=== PATIENT | female | born 1980 | race African-American/Black ===

== ENCOUNTER 2018-11-19 13:33 | Emergency (ER) | payer MEDICAID, SELFPAY ==
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
== END 2018-11-19 15:25 | disposition home or self-care (01) ==
LOC: ERS 13:33
DX: R07.89 Other chest pain (principal); I10 Essential (primary) hypertension; F41.9 Anxiety disorder, unspecified; F31.9 Bipolar disorder, unspecified; E11.9 Type 2 diabetes mellitus without complications; Z79.4 Long term (current) use of insulin; Z79.899 Other long term (current) drug therapy; V89.2XXA Person injured in unspecified motor-vehicle accident, traffic, initial encounter
CPT/HCPCS: 71045; 96372

== ENCOUNTER 2018-12-16 18:46 | Emergency (ER) | payer MEDICARE, MEDICAID ==
[2018-12-16] MEDS ORDERED: Acetaminophen 500 MG TAB ONE (20:12)
[2018-12-16 20:20] LABS: Bilirubin Small (Negative); Blood, Urine Negative (Negative); Clarity CLOUDY (Clear); Glucose, Urine (Dipstick) >=1000 mg/dL (Negative); Leukocyte Negative (Negative); Nitrite Negative (Negative); Protein, Urine (Dipstick) 30 mg/dL (Neg-Trace)
[2018-12-16 20:21] LABS: Bacteria/HPF 1+ HPF (None Seen); Hyaline Casts/LPF 4-6 HYALINE CAST LPF (0-3 Hyaline); Pathc Cast-AUWi Flag 0.81 (0-2.49); RBC/HPF 0-3 HPF (0-3)
[2018-12-16 20:22] LABS: Pregnancy Test - Urine (BHCG) Negative (Negative); Pregu Control Background? CLEAR/WHITE (CLR/WHITE); Pregu Control Bar Appear? YES (CONTROL BAR); Specific Gravity 1.042 (1.002-1.036); Specific Gravity, Urine 1.042 (1.002-1.036)
[2018-12-16 20:25] LABS: #Basophils 0.1 thou/uL (0.0-0.2); #Lymphocytes 1.9 thou/uL (1.20-3.40); #Monocytes 0.5 thou/uL (0.11-0.59); #Neutrophils 3.7 thou/uL (1.40-6.50); %Basophils 1.4 % (0.0-1.0); %Eosinophils 0.7 % (0.0-10.0); Hemoglobin 12.2 g/dL (12.0-16.0); Mean Corpuscular HGB CONC 33.9 g/dL (32.0-36.0); Mean Corpuscular Hemoglobin 32.1 pg (27.0-31.0); Mean Corpuscular Volume 94.8 fL (78.0-98.0); Mean Platelet Volume 8.8 fL (7.4-10.4); Platelet Count 246 thou/uL (130-400); RBC Distribution Width 11.9 % (11.5-14.5); Red Blood Cell (RBC) Count 3.79 mill/uL (4.20-5.40); White Blood Cell (WBC) Count 6.2 thou/uL (4.8-10.8)
[2018-12-16 20:32] LABS: Transitional Epithelial 0-3 HPF (0-3)
[2018-12-16 20:46] LABS: ALT (SGPT) 11 U/L (8-55); AST (SGOT) 15 U/L (5-34); Albumin 4.3 g/dL (3.5-5.0); Alkaline Phosphatase 66 U/L (40-150); Anion Gap 15 mmol/L (10-20); BUN (Urea Nitrogen) 13 mg/dL (7.0-18.7); Bilirubin, Total 0.7 mg/dL (0.2-1.2); Calc. Creatinine Clearance 0 mL/min (70-130); Calcium 9.1 mg/dL (7.8-10.44); Carbon Dioxide 21 mmol/L (22-29); Chloride 105 mmol/L (98-107); Estimated GFR-MDRD 83; Globulin 2.8 g/dL (2.4-3.5); Glucose 219 mg/dL (70-105); Potassium 3.5 mmol/L (3.5-5.1); Protein, Total 7.1 g/dL (6.0-8.3); Sodium 137 mmol/L (136-145)
== END 2018-12-16 21:29 | disposition home or self-care (01) ==
LOC: ERS 18:46
DX: N93.9 Abnormal uterine and vaginal bleeding, unspecified (principal); E11.65 Type 2 diabetes mellitus with hyperglycemia; I10 Essential (primary) hypertension; F41.9 Anxiety disorder, unspecified; F31.9 Bipolar disorder, unspecified; Z79.1 Long term (current) use of non-steroidal anti-inflammatories (NSAID); Z79.899 Other long term (current) drug therapy; Z79.4 Long term (current) use of insulin
CPT/HCPCS: 36415; 36416; 80053; 81003; 81015; 81025; 82010; 85025

== ENCOUNTER 2019-06-24 12:31 | Emergency (ER) | payer MEDICARE, OTHER ==
[2019-06-24 13:13] LABS: Bacteria/HPF 3+ HPF (None Seen); Bilirubin Negative (Negative); Blood, Urine 2+ (Negative); Clarity Turbid (Clear); Glucose, Urine (Dipstick) Greater than 1000 mg/dL (Negative); Leukocyte 250 Leu/uL (Negative); Nitrite 2+ (Negative); Protein, Urine (Dipstick) 100 mg/dL (Neg-Trace); RBC/HPF 0-3 HPF (0-3); Squamous Epithelial 21-50 HPF (0-3); Urobilinogen Normal mg/dL (Less than 2); WBC/HPF 21-50 HPF (0-3)
[2019-06-24 13:26] LABS: #Eosinphils 0.1 thou/uL (0.0-0.7); #Lymphocytes 1.9 thou/uL (1.20-3.40); #Monocytes 0.4 thou/uL (0.11-0.59); %Basophils 0.4 % (0.0-1.0); %Eosinophils 1.3 % (0.0-10.0); %Lymphocytes 29.6 % (21.0-51.0); %Monocytes 6.5 % (0.0-10.0); %Neutrophils 62.2 % (42.0-75.0); Hemoglobin 11.8 g/dL (12.0-16.0); Mean Corpuscular HGB CONC 34.3 g/dL (32.0-36.0); Mean Corpuscular Volume 93.2 fL (78.0-98.0); Platelet Count 276 thou/uL (130-400); RBC Distribution Width 12.2 % (11.5-14.5); White Blood Cell (WBC) Count 6.5 thou/uL (4.8-10.8)
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
[2019-06-28 00:25] LABS: Chlamydia by PCR Not Detected (NotDetected); GC by PCR Not Detected (NotDetected)
== END 2019-06-24 14:30 | disposition home or self-care (01) ==
LOC: ERS 12:31
DX: O20.0 Threatened abortion (principal); O23.41 Unspecified infection of urinary tract in pregnancy, first trimester; O24.911 Unspecified diabetes mellitus in pregnancy, first trimester; O16.1 Unspecified maternal hypertension, first trimester; O99.341 Other mental disorders complicating pregnancy, first trimester; F41.9 Anxiety disorder, unspecified; F31.9 Bipolar disorder, unspecified; Z3A.10 10 weeks gestation of pregnancy; Z79.4 Long term (current) use of insulin
CPT/HCPCS: 36415; 76856; 81003; 81015; 84702; 85025; 86900; 86901; 87077; 87086; 87186; 87480; 87491; 87510; 87591; 87660

== ENCOUNTER 2019-06-29 08:52 | Emergency (ER) | payer MEDICARE, OTHER ==
--- NOTE | 2019-06-29 10:18 | ULT ---
EXAM: Pelvic ultrasound HISTORY: female with spotting COMPARISON: None TECHNIQUE: Multiple grayscale and color Doppler images were obtained in a transabdominal and transvag inal pelvic ultrasound. Spectral analysis of the Doppler waveforms of the ovaries were performed. FINDINGS: CERVIX: No evidence of nabothian cysts. UTERUS: Normal in size without focal abnormality. No intrauterine is seen. ENDOMETRIAL STRIPE: 5 mm. No free fluid is seen in the pelvis. RIGHT OVARY: Normal flow without focal mass. LEFT OVARY: Normal flow without focal mass. A dominant follicle seen in the left ovary. IMPRESSION: No evidence of intrauterine or ectopic .
== END 2019-06-29 12:56 | disposition home or self-care (01) ==
LOC: ERS 08:52
DX: O20.0 Threatened abortion (principal); O24.311 Unspecified pre-existing diabetes mellitus in pregnancy, first trimester; E11.9 Type 2 diabetes mellitus without complications; O10.911 Unspecified pre-existing hypertension complicating pregnancy, first trimester; O99.341 Other mental disorders complicating pregnancy, first trimester; F41.9 Anxiety disorder, unspecified; F31.9 Bipolar disorder, unspecified; Z79.4 Long term (current) use of insulin; Z79.899 Other long term (current) drug therapy; Z3A.01 Less than 8 weeks gestation of pregnancy
CPT/HCPCS: 36415; 76856; 84702

== ENCOUNTER 2019-07-01 11:46 | Emergency (ER) | payer MEDICARE, OTHER | END 2019-07-01 13:25 | disposition home or self-care (01) | LOC: ERS 11:46 | DX: O20.0 Threatened abortion (principal); O24.911 Unspecified diabetes mellitus in pregnancy, first trimester; O16.1 Unspecified maternal hypertension, first trimester; Z79.4 Long term (current) use of insulin; Z79.899 Other long term (current) drug therapy | CPT/HCPCS: 36415; 84702; 99284 ==

== ENCOUNTER 2019-07-03 08:55 | Emergency (ER) | payer MEDICARE, OTHER | END 2019-07-03 10:15 | disposition home or self-care (01) | LOC: ERS 08:55 | DX: O20.9 Hemorrhage in early pregnancy, unspecified (principal); O24.111 Pre-existing type 2 diabetes mellitus, in pregnancy, first trimester; O10.911 Unspecified pre-existing hypertension complicating pregnancy, first trimester; O99.341 Other mental disorders complicating pregnancy, first trimester; F41.9 Anxiety disorder, unspecified; F31.9 Bipolar disorder, unspecified; Z3A.01 Less than 8 weeks gestation of pregnancy; Z79.4 Long term (current) use of insulin; Z79.899 Other long term (current) drug therapy | CPT/HCPCS: 99283 ==

== ENCOUNTER 2019-07-09 11:58 | Emergency (ER) | payer MEDICARE, MEDICAID | END 2019-07-09 14:53 | disposition home or self-care (01) | LOC: ERS 11:58 | DX: Z48.89 Encounter for other specified surgical aftercare (principal); E11.9 Type 2 diabetes mellitus without complications; I10 Essential (primary) hypertension; F41.9 Anxiety disorder, unspecified; F31.9 Bipolar disorder, unspecified; Z79.4 Long term (current) use of insulin; Z79.899 Other long term (current) drug therapy | CPT/HCPCS: 36415; 84702; 99282 ==

== ENCOUNTER 2019-11-27 21:02 | Emergency (ER) | payer MEDICARE ==
[2019-11-27 21:49] LABS: Pregnancy Test - Urine (BHCG) Negative (Negative); Pregu Control Background? CLEAR/WHITE (CLR/WHITE); Pregu Control Bar Appear? YES (CONTROL BAR); Specific Gravity 1.032 (1.002-1.036)
[2019-11-27] MEDS ORDERED: Adacel (T-DAP) 0.5 ML SYRINGE ONE (22:21)
[2019-11-27] MEDS ORDERED: Acetaminophen 500 MG TAB ONE (22:22)
[2019-11-27] MEDS ORDERED: Lidocaine 1% w/Epinephrine 1:100K 20 ML VIAL ONE (22:56)
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
[2019-11-28] MEDS ORDERED: Bacitracin 1 PK ONE (00:41)
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
== END 2019-11-28 01:00 | disposition home or self-care (01) ==
LOC: ERS 21:02
DX: S01.81XA Laceration without foreign body of other part of head, initial encounter (principal); S00.81XA Abrasion of other part of head, initial encounter; E11.9 Type 2 diabetes mellitus without complications; I10 Essential (primary) hypertension; F31.9 Bipolar disorder, unspecified; F41.9 Anxiety disorder, unspecified; Z79.899 Other long term (current) drug therapy; Z79.4 Long term (current) use of insulin; V86.56XA Driver of dirt bike or motor/cross bike injured in nontraffic accident, initial encounter
CPT/HCPCS: 12011; 70450; 70486; 72125; 81025; 90715

== ENCOUNTER 2019-11-30 21:42 | Inpatient (IN) | payer MEDICARE, MEDICAID ==
[~2019-11-30 21:42] MED LIST: Iopamidol-370 76% 500 ML 1 ML ONE
--- NOTE | 2019-11-30 22:03 | CT ---
CT Brain WO Con: 11/30/2019 12:00 AM CLINICAL HISTORY: Level 1 stroke with slurred speech and right-sided weakness. IMAGING TECHNIQUE: Multiple CT images were obtained of the brain without IV contrast. COMPARISON: CT the brain without contrast dated 11/27/2019 FINDINGS: BRAIN: Evidence of infarct: The well-defined linear hypodensity involving the left frontal lobe is stable. No acute infarct is evident. Evidence of cranial hemorrhage: None. Evidence of midline shift: Third ventricle and septum pellucidum are midline. Ventricles: Normal. No hydrocephalus. SKULL: Intact. VISUALIZED PARANASAL SINUSES: Clear. MASTOID AIR CELLS: Clear. EXTRACRANIAL SOFT TISSUES: Right frontal scalp laceration is similar appearing. IMPRESSION: Stable well-defined linear hypodense lesion involving the left frontal lobe. No additional acute leia nge is demonstrated. Recommendations remain the same as per the prior exam. Findings were called to Dr. Haji at 9:59 PM on 11/30/2019.
[2019-11-30 22:07] LABS: #Eosinphils 0.1 thou/uL (0.0-0.7); #Lymphocytes 2.2 thou/uL (1.20-3.40); #Monocytes 0.5 thou/uL (0.11-0.59); #Neutrophils 2.3 thou/uL (1.40-6.50); %Basophils 0.9 % (0.0-1.0); %Eosinophils 1.5 % (0.0-10.0); %Lymphocytes 43.7 % (21.0-51.0); %Monocytes 9.4 % (0.0-10.0); %Neutrophils 44.4 % (42.0-75.0); Hemoglobin 11.6 g/dL (12.0-16.0); Mean Corpuscular HGB CONC 34.1 g/dL (32.0-36.0); Mean Corpuscular Hemoglobin 32.1 pg (27.0-31.0); Mean Corpuscular Volume 94.1 fL (78.0-98.0); Mean Platelet Volume 9.5 fL (7.4-10.4); Platelet Count 222 thou/uL (130-400); RBC Distribution Width 11.5 % (11.5-14.5); White Blood Cell (WBC) Count 5.1 thou/uL (4.8-10.8)
[2019-11-30 22:12] LABS: Prothrombin Time 12.8 sec (12.0-14.7)
[2019-11-30 22:13] LABS: PTT 27.5 sec (22.9-36.1)
--- NOTE | 2019-11-30 22:28 | CT ---
CTA of the head with IV contrast and 3-D reformatted imaging. CTA of the neck with IV contrast and 3-D reformatted imaging. INDICATION: Stroke COMPARISON: CT the brain without contrast dated 11/30/2019 and 11/27/2019 FINDINGS: CTA OF THE HEAD WITH CONTRAST: CTA OF THE BRAIN: Right ICA: Diffusely small but patent. Right MCA: Patent. Right FREDIS: Patent. ACOM: Patent. Left ICA: Diffusely small but patent Left MCA: There is abrupt cut off of the distal left MCA at the level of the M3 branching. There is some reconstitution of flow within distal branching of the left MCA distribution likely through cortical collaterals. This is most evident on axial image 175 of series 2. Left FREDIS: Patent. PCOMs: There is patency of both posterior communicating arteries. Vertebral arteries: Both appear slightly small but patent. Basilar Artery: Small but patent clinic lpn: Patent. Incidentals: The hypodense lesion involving the anterolateral left frontal cortex demonstrates no de finite enhancement. CTA OF THE NECK WITH CONTRAST: Right CCA: Patent. Right ICA: Patent. Right Subclavian: Patent. Right Vertebral Artery: Patent. Left CCA: Patent. Left ICA: Patent. Left Subclavian: Patent. Left Vertebral Artery: Patent. Aerodigestive tract: Clear. Parotids/Submandibular/Thyroid glands: Normal. Lymph nodes: No pathologically enlarged lymph nodes. Lung Apices: Clear. Bones: No acute osseous abnormality. Incidentals: None. IMPRESSION: 1. Occlusion of the distal left MCA at the level of the M3 branching. 2. Linear hypodense lesion involving the left anterolateral cortex of the left frontal lobe. This is nonspecific and may reflect sequela of remote infarct; however, small developmental cleft is not entirely excluded. Follow-up MRI of brain with and without contrast is recommended for further charac terization. 3. Findings discussed with Dr. Haji at 10:20 PM on 11/30/2019.
[2019-11-30 22:29] LABS: ALT (SGPT) 9 U/L (8-55); AST (SGOT) 13 U/L (5-34); Albumin 3.2 g/dL (3.5-5.0); Alkaline Phosphatase 56 U/L (40-110); Anion Gap 13 mmol/L (10-20); BUN (Urea Nitrogen) 14 mg/dL (7.0-18.7); Bilirubin, Total 0.2 mg/dL (0.2-1.2); CK (CPK) 104 U/L (29-168); Calc. Creatinine Clearance 0 mL/min (70-130); Calcium 8.4 mg/dL (7.8-10.44); Carbon Dioxide 21 mmol/L (22-29); Chloride 98 mmol/L (98-107); Estimated GFR-MDRD 69; Globulin 2.5 g/dL (2.4-3.5); Glucose 429 mg/dL (70-105); Potassium 3.3 mmol/L (3.5-5.1); Protein, Total 5.7 g/dL (6.0-8.3); Sodium 129 mmol/L (136-145)
[2019-11-30 22:39] LABS: BHCG - Serum Negative (NEGATIVE); Pregs Control Background? CLEAR/WHITE (CLR/WHITE); Pregs Control Bar Appear? YES (CONTROL BAR)
[2019-11-30] MEDS ORDERED: niCARdipine 25 MG in Sodium Chloride 0.9% 250 ML 240 ML IVPB PRN (23:24)
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
[2019-11-30] MEDS ORDERED: Electrolyte Replacement Protoc 1 EACH EACH IVPB SCH (23:37)
[2019-11-30] MEDS ORDERED: CCU ELECTROLYTE REPLACEMENT PROTOCOL FS PRN (23:45)
[2019-11-30] MEDS ORDERED: HUMULIN R 100 UNITS in Sodium Chloride 0.9% 100 ML IVPB SCH (23:45)
[2019-11-30] MEDS ORDERED: Potassium Phosphate 15 MMOL in Sodium Chloride 0.9% 250 ML 250 ML IV PRN (23:45)
[2019-11-30] MEDS ORDERED: Magnesium 2 GM/50 ML 2 GM in Premix Bag 1 BAG IVPB PRN (23:45)
[2019-11-30] MEDS ORDERED: PHOS-NAK 1 PKT PACK PO PRN ×2 (23:45)
[2019-11-30] MEDS ORDERED: Potassium Chloride 40 MEQ in Premix Bag 1 BAG IVPB PRN (23:45)
[2019-11-30] MEDS ORDERED: Magnesium Oxide 400 MG TAB PO PRN ×2 (23:45)
[2019-11-30] MEDS ORDERED: Potassium Chloride 20 MEQ TAB PO PRN (23:45)
[2019-11-30] MEDS ORDERED: Potassium Phosphate 12 MMOL in Sodium Chloride 0.9% 250 ML 250 ML IV PRN (23:45)
[2019-11-30] MEDS ORDERED: Potassium Phosphate 9 MMOL in Sodium Chloride 0.9% 100 ML IVPB PRN (23:45)
[2019-12-01] MEDS: Sodium Chloride 0.9% 1,000 ML IV SCH ×2 (02:49→16:58)
[2019-12-01 04:37] LABS: Bacteria/HPF None Seen HPF (None Seen); Bilirubin Negative (Negative); Blood, Urine Negative (Negative); Clarity Clear (Clear); Glucose, Urine (Dipstick) Greater than 1000 mg/dL (Negative); Leukocyte Negative Leu/uL (Negative); Nitrite Negative (Negative); Protein, Urine (Dipstick) 10 mg/dL (Neg-Trace); RBC/HPF 0-3 HPF (0-3); Squamous Epithelial 0-3 HPF (0-3); Urobilinogen Normal mg/dL (Less than 2); WBC/HPF 0-3 HPF (0-3)
[2019-12-01 04:42] LABS: Urine Culture Reflex No No
[2019-12-01 04:48] LABS: Medtox Control Line Valid? VALID (VALID); Medtox Reader # READER 4; Opiate Screen Detected (NotDetected)
[2019-12-01 04:49] LABS: Amphetamine Not Detected (NotDetected); Barbiturates Screen Not Detected (NotDetected); Benzodiazepine Screen Not Detected (NotDetected); Cocaine Metabolite Screen Not Detected (NotDetected); Methadone Not Detected (NotDetected); Methamphetamine Not Detected (NotDetected); Oxycodone Screen Not Detected (NotDetected); Phencyclidine (PCP) Not Detected (NotDetected); THC/Cannabinoid Screen Not Detected (NotDetected); Tricyclic Screen Not Detected (NotDetected)
[2019-12-01 05:47] LABS: Hemoglobin A1c Greater than 14.0 % (4.0-6.0)
[2019-12-01] MEDS: Potassium Chloride 40 MEQ in Sodium Chloride 0.9% 250 ML 250 ML IVPB PRN (05:58)
--- NOTE | 2019-12-01 06:55 | PDOC.FM ---
- Subjective Subjective: NAEO. Patient able to respond to command, right side of body paralyzed. Non verbal. - Objective MAR Reviewed: Yes Vital Signs & Weight: Vital Signs (12 hours) Temp Pulse Ox 12/01/19 04:00 98.5 F 12/01/19 01:22 100 12/01/19 00:29 99 12/01/19 00:01 98.7 F Weight Weight 74.1 kg Most Recent Monitor Data Heart Rate from ECG 100 NIBP 105/67 NIBP BP-Mean 79 Respiration from ECG 13 SpO2 100 I&O: 11/29/19 11/30/19 12/01/19 06:59 06:59 06:59 Output Total 80 Balance -80 Result Diagrams: 11/30/19 21:56 11/30/19 21:56 Phys Exam - Physical Examination Constitutional: NAD HEENT: sclera anicteric Respiratory: no wheezing, clear to auscultation bilateral 2/6 systolic murmur Gastrointestinal: soft, non-tender Musculoskeletal: no edema right upper and lower extremities 0/5, right lower face paralysis Deviation from normal: blunted affect Dx/Plan (1) DM hyperosmolarity type II Code(s): E11.00 - TYPE 2 DIAB W HYPROSM W/O NONKET HYPRGLY-HYPROS COMA ([facility]) Status: Acute (2) Hypertension Code(s): I10 - ESSENTIAL (PRIMARY) HYPERTENSION Status: Acute (3) Left acute arterial ischemic stroke, MCA (middle cerebral artery) Code(s): I63.512 - CEREB INFRC D/T UNSP OCCLS OR STENOS OF LEFT MID CEREB ART Status: Acute (4) Schizophrenia Code(s): F20.9 - SCHIZOPHRENIA, UNSPECIFIED Status: Acute - Plan Plan: 1. Ischemic CVA -CTAngio : left distal MCA occlusion. L & R ICA diffuse small but patent -s/p alteplease @2200 on 11/29, strict bedrest, no lab draws -BPs all within goal of <180/<105, PRNs on board -Will consult neuro & pulm this AM -Continuous neuro checks lila. during 24 hour period -Pending hypercoag panel -Transthoracic echo -Likely ASA vs. DAPT s/p alteplase 2 hr window -Pending f/u CT/MRI 2. Hyperglycemic in IDDM2-uncontrolled -Continue insulin gtt to minimize lab draws -Titrate as needed -Will resume home insulin after 24 hours s/p alteplase -Will need to do intensive diabetes education, this could have been reason why patient had stroke, very uncontrolled in OP setting 3. Bipolar/Schizophrenia -Stable -F/u outpatient Code: Full PCP: Jaret Dispo: >2 midnights Addendum - Attending - Attending Attestation Date/Time: 12/01/19 1202 I personally evaluated the patient and discussed the management with Dr. Zambrano. I agree with the History, Examination, Assessment and Plan documented above with any addition or exceptions noted below. continue s/p TPA protocol. hypercoag panel once lab draws can resume. tight glycemic control. Awaiting neurology recs. Still aphasic and right hemipalegia with right hemineglect.
[2019-12-01] MEDS: Famotidine/PF 20 mg/2ml Vial SLOW IVP SCH (09:04)
[2019-12-01] MEDS: Acetaminophen 650 MG Suppository PR PRN ×2 (09:05→14:38)
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
[2019-12-01] MEDS: HumaLOG 300 UNITS/3 ML VIAL SC PRN ×3 (12:49→23:06)
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
[2019-12-01] MEDS: Ondansetron PF 4 MG/2 ML Vial IVP PRN ×2 (15:10→20:39)
[2019-12-01] MEDS: Labetalol HCl 100 MG/20 ML VIAL SLOW IVP PRN (17:39)
--- NOTE | 2019-12-01 17:54 | PDOC.BPN ---
- Brief Progress Note Called to CCU and notified that patient has had emesis x2 about 150cc. On my exam patient is more lethargic, having difficulty spontaneously opening eyes to verbal command where as before she was having spontaneous eye movement. Will order STAT CT head w/o con to r/o ICH. Discussed with Dr. Schreiber & Dr. Conte
--- NOTE | 2019-12-01 18:01 | PDOC.BPN ---
- Brief Progress Note Patient's boyfriend called. Gave him update, see prior note. Will update him with results of CT [phone]
--- NOTE | 2019-12-01 19:14 | CT ---
CT BRAIN WITHOUT CONTRAST: History: Altered mental status after CTA. Comparison: CTA brain, 11-30-2019 FINDINGS: Large volume left MCA infarction involving the anterior and middle divisions. No hemorrhage. There is some mild left to right shift approximately 6 mm. There is some effacement of the left lateral ventr icle. There is subcutaneous emphysema along the right frontal scalp. IMPRESSION: Large left MCA territory infarction involving the anterior middle divisions with early left to right midline shift and effacement of the left lateral ventricle. POS: HOME
--- NOTE | 2019-12-01 19:15 | PDOC.BPN ---
- Brief Progress Note Spoke to reading radiologist, new L->R 6mm midline shift, no bleed identified NIH increased from 15-> 18 Patinet still responding to commands but more groggy than before Onset of vomiting at 1510 this afternoon, improved with zofran but still present per nursing staff Pupils equal and reactive Still nods yes or no Called Neurosurgery for recs on management of new midline shift
--- NOTE | 2019-12-01 19:40 | PDOC.BPN ---
- Brief Progress Note spoke to neurosurgery and neurology 1 time dose mannitol ordered, cohn to be placed Neurosurgery will follow, appreciate recs
[2019-12-01] MEDS ORDERED: Mannitol 12.5 GM/50 ML SLOW IVP SCH (19:45)
[2019-12-01] MEDS: Clotrimazole 2% 3 Day Vag Cr 22.2 GM TUBE VAG SCH (22:40)
[2019-12-02] MEDS: Ondansetron PF 4 MG/2 ML Vial IVP PRN ×2 (01:23→08:15)
--- NOTE | 2019-12-02 02:04 | CON ---
DATE OF CONSULTATION: This is Nina Mays PA-C dictating a report for Reji White MD. HISTORY OF PRESENT ILLNESS: The patient is a 39-year-old female with a past medical history of uncontrolled diabetes and hypertension as well as schizophrenia and bipolar disorder, who presented to the emergency department on 11/30/2019 for acute onset right-sided weakness.. A noncontrast CT head was done on arrival to the emergency department and she was found to have a left-sided acute infarct. CT angiogram did show an occlusion of the distal left MCA level of the M3 branch, however, pt was was not a candidate for NS angio intervention due to distal location of the occlusion. Subsequently, she was treated with tPA and has been monitored in the ICU with regular neuro checks. She received additional noncontrast head CT after developing some somnolence earlier today. Her followup CT was notable for some significant edema in the left frontal region with a mild amount of left to right midline shift. Neurosurgery was consulted for further evaluation and management of this patient. Her sodium on arrival was also noted to be low at 129, however, this was corrected to 137 per the Family Medicine notes. PAST MEDICAL HISTORY: Diabetes, hypertension, schizophrenia, bipolar disorder. PAST SURGICAL HISTORY: section, hernia repair, D and C. SOCIAL HISTORY: Per records, the patient denies alcohol, drug, or smoking history. ALLERGIES: SHE IS ALLERGIC TO LATEX. REVIEW OF SYSTEMS: Unobtainable secondary to patient's acute aphasia. PHYSICAL EXAMINATION: VITAL SIGNS: Pulse is 106, heart rate is 147/97. The patient is 99% on room air. CONSTITUTIONAL: The patient resting comfortably in the ICU. She looks and responds appropriately to her name. HEENT: Head, normocephalic and atraumatic. Pupils are equal and reactive, although she does have a slightly left-sided gaze deviation. CARDIAC: Regular rate and rhythm. LUNGS: Symmetric chest expansion. No evidence of dyspnea. MUSCULOSKELETAL: No obvious deformities. Symmetric pulses. She has a dense right-sided hemiparesis. She has 5/5 strength on the left. NEUROLOGIC: She is completely aphasic. She does open her eyes and will follow commands appropriately. She has good strength on the left, but has a dense right-sided hemiparesis. ASSESSMENT AND PLAN: This is a 39-year-old unfortunate female with acute left MCA infarct, treated with tPA. She has had some mental status changes intermittently and has a new CT, which shows significant edema around the left MCA infarct. This is causing some mild left to right midline shift and some surrounding vasogenic edema. At this point on her exam, she appears to be acting appropriately and responding appropriately to my commands. She awakens easily and her pupils are equal and reactive. We will plan to treat her with one dose of mannitol 100 [address] [place] and monitor her I's and O's closely. We will also repeat an a.m. noncontrast CT head. If she has further decline, she may require earlier imaging or further intervention. Discussed this plan with Dr. White and we will follow along with the medical team closely. Job ID: [id number] MTDD
[2019-12-02] MEDS: Sodium Chloride 0.9% 1,000 ML IV SCH ×3 (02:45→20:29)
[2019-12-02] MEDS: Labetalol HCl 100 MG/20 ML VIAL SLOW IVP PRN ×3 (03:02→17:27)
[2019-12-02 04:06] LABS: #Basophils 0.1 thou/uL (0.0-0.2); #Lymphocytes 1.1 thou/uL (1.20-3.40); #Monocytes 0.6 thou/uL (0.11-0.59); %Basophils 0.5 % (0.0-1.0); %Eosinophils 0.2 % (0.0-10.0); %Lymphocytes 10.2 % (21.0-51.0); %Monocytes 5.6 % (0.0-10.0); %Neutrophils 83.6 % (42.0-75.0); Hemoglobin 12.9 g/dL (12.0-16.0); Mean Corpuscular HGB CONC 34.4 g/dL (32.0-36.0); Mean Corpuscular Hemoglobin 32.5 pg (27.0-31.0); Mean Corpuscular Volume 94.5 fL (78.0-98.0); Mean Platelet Volume 9.7 fL (7.4-10.4); Platelet Count 246 thou/uL (130-400); Red Blood Cell (RBC) Count 3.96 mill/uL (4.20-5.40); White Blood Cell (WBC) Count 10.8 thou/uL (4.8-10.8)
[2019-12-02 04:33] LABS: ALT (SGPT) 8 U/L (8-55); AST (SGOT) 13 U/L (5-34); Albumin 3.7 g/dL (3.5-5.0); Alkaline Phosphatase 63 U/L (40-110); Anion Gap 15 mmol/L (10-20); BUN (Urea Nitrogen) 6 mg/dL (7.0-18.7); Bilirubin, Total 0.4 mg/dL (0.2-1.2); Calc. Creatinine Clearance 101 mL/min (70-130); Calcium 8.7 mg/dL (7.8-10.44); Carbon Dioxide 18 mmol/L (22-29); Chloride 107 mmol/L (98-107); Estimated GFR-MDRD 87; Glucose 229 mg/dL (70-105); Potassium 3.3 mmol/L (3.5-5.1); Protein, Total 6.7 g/dL (6.0-8.3); Sodium 137 mmol/L (136-145)
[2019-12-02] MEDS: HumaLOG 300 UNITS/3 ML VIAL SC PRN ×4 (04:54→17:34)
[2019-12-02 06:25] LABS: PTT 27.5 sec (22.9-36.1); Prothrombin Time 13.4 sec (12.0-14.7)
[2019-12-02 06:26] LABS: D-Dimer Test 2.32 *mcg/mL (0.27-0.43)
--- NOTE | 2019-12-02 07:11 | PDOC.FM ---
- Subjective Subjective: Patient had change in mental status yesterday afternoon with emesis x2. Repeat CT showed cerebral edema with midline shift. Neurosurgery consulted & mannitol started. Repeat CT this AM read pending. Patient still non verbal with limited participation in neuro exam. Has required two doses of IV labetalol to maintain goal blood pressures - Objective Vital Signs & Weight: Vital Signs (12 hours) Temp Pulse BP Pulse Ox 12/02/19 04:00 99.1 F 12/02/19 03:02 105 H 182/106 H 12/02/19 00:00 99.6 F 12/01/19 20:00 99.5 F 99 Weight Admit Weight 73.936 kg Weight 70.7 kg Most Recent Monitor Data Heart Rate from ECG 95 NIBP 178/106 NIBP BP-Mean 130 Respiration from ECG 20 SpO2 98 I&O: 12/01/19 12/02/19 12/03/19 06:59 06:59 06:59 Intake Total 1688 Output Total 80 2470 Balance -80 -782 Result Diagrams: 12/02/19 03:19 12/02/19 03:19 Phys Exam - Physical Examination unable to open eyes Neck: no JVD Respiratory: no wheezing no respiratory distress Cardiovascular: no significant murmur tachycardic Gastrointestinal: soft, no distention Musculoskeletal: no edema no voluntary movement in right side. responds to verbal command. no withdra wal from pain on right. unchanged neuro exam from yesterday Dx/Plan (1) DM hyperosmolarity type II Code(s): E11.00 - TYPE 2 DIAB W HYPROSM W/O NONKET HYPRGLY-HYPROS COMA (NKHHC) Status: Acute (2) Hypertension Code(s): I10 - ESSENTIAL (PRIMARY) HYPERTENSION Status: Acute (3) Left acute arterial ischemic stroke, MCA (middle cerebral artery) Code(s): I63.512 - CEREB INFRC D/T UNSP OCCLS OR STENOS OF LEFT MID CEREB ART Status: Acute (4) Schizophrenia Code(s): F20.9 - SCHIZOPHRENIA, UNSPECIFIED Status: Acute - Plan Plan: 1. Ischemic CVA of L MCA with midline shift -CTAngio : left distal MCA occlusion. L & R ICA diffuse small but patent -s/p alteplease @2200 on 11/29, strict bedrest, no lab draws -Neurology & Neurosurgery on board -Pending hypercoag panel WNL -CT 11/30 showing midline shift from cerebral edema. Mannitol x1. Pending repeat CT this AM -NPO with ice chips. Pending no surgical intervention this AM, will place NGT to restart PO meds 2. Hyperglycemic in IDDM2-uncontrolled -Restarting long acting insulin, continue sliding scale -Currently NPO, will titrate up long acting when taking PO -Will need to do intensive diabetes education, this could have been reason why patient had stroke, very uncontrolled in OP setting 3. Bipolar/Schizophrenia -Stable -F/u outpatient Code: Full PCP: Jaret Dispo: >2 midnights Addendum - Attending - Attending Attestation Date/Time: 12/02/19 [id number] I personally evaluated the patient and discussed the management with Dr. Zambrano. I agree with the History, Examination, Assessment and Plan documented above with any addition or exceptions noted below. Patient intubated at time of my examination. Neurosurgery planning for craniotomy today 2/2 increased ICP with midline shift. Patient had decorticate posturing today on exam. Will await further recommendations. Prognosis guarded.
[2019-12-02] MEDS: Potassium Chloride 40 MEQ in Sodium Chloride 0.9% 250 ML 250 ML IVPB PRN (07:57)
--- NOTE | 2019-12-02 08:24 | CT ---
PRELIMINARY REPORT/[facility]/EMERGENCY AFTER HOURS PROCEDURE: EXAM: CT Head Without Intravenous Contrast. CLINICAL HISTORY: F/U STROKE TECHNIQUE: Axial computed tomography images of the head/brain without intravenous contrast. COMPARISON: CT\SR - CT BRAIN WO CON - 12/01/2019 06:03 PM CDT FINDINGS: BRAIN: Again seen is a large volume left MCA territory stroke with areas of heterogeneous density. Linear hyperdensity at the posterior aspect of the infarct which is favored to represent prominent co rtex versus less likely hemorrhage Surrounding mass-effect and compression of the visualized sulci throughout the brain and axco-qb-bzoy t midline shift measuring approximately 7 mm, similar to prior. VENTRICLES: No hydrocephalus. Effacement of the occipital horn of the left lateral ventricle. ORBITS: The orbits are unremarkable. SINUSES AND MASTOIDS: The paranasal sinuses and mastoid air cells are clear. SOFT TISSUES: Soft tissue thickening and gas in the subcutaneous oft tissues overlying the right frontal bone. BONES: No acute skull fracture. IMPRESSION: Large volume left MCA territory infarct with associated mass effect and left to right midline shift w hich is similar in appearance compared to prior. Linear hyperdensity at the posterior aspect of the infarct which is favored to represent prominent co rtex versus less likely hemorrhage. Short term interval followup is recommended. ELECTRONICALLY SIGNED BY: Patti Beltre MD Dec 02, 2019 5:04:49 AM CDT This report is intended for review by the ordering physician only, in accordance of law. If you recei ve this report in error, please call [facility] at [phone]. FINAL REPORT BRAIN CT WITHOUT IV CONTRAST EMERGENCY AFTER HOURS EXAM [id number] HOURS 12/02/2019 COMPARISON: 12/01/2019. FINDINGS/IMPRESSION: Progressive edema and mass effect involving the left middle cerebral artery distribution with more ma ss effect, approximately 0.7 cm of midline shift to the right. No evidence for significant new hemorr kamila. Questionable small linear hyperdensity on the left side in the posterior infarct region, concei vably this could be a very tiny focus of hemorrhage. Continue short-term follow-up. Consider follow-up MRI depending upon concern. This report is in agreement with preliminary report by [facility]. POS: RRE
[2019-12-02] MEDS ORDERED: Midazolam HCl 2 mg/2 ml Vial ONE (08:35)
[2019-12-02] MEDS ORDERED: Morphine 4 MG/ML VIAL ONE (08:39)
[2019-12-02] MEDS ORDERED: Midazolam HCl 2 mg/2 ml Vial SLOW IVP SCH (08:45)
--- NOTE | 2019-12-02 08:58 | PRG ---
DATE OF SERVICE: 12/02/2019 SUBJECTIVE: This morning, she is a 39-year-old female, is less responsive. OBJECTIVE: VITAL SIGNS: Saturations are 97% on room air, blood pressure 178/ 101, respiratory rate 18. HEENT: Pupils are equal. CHEST: Anterior rhonchi. CARDIAC: Normal S1, S2. No gallops. ABDOMEN: No masses. LABORATORY DATA: White count 10,000, H and H of 10 and 37, platelet count 246. Lytes are normal. Glucose 236. CT of brain shows significant edema with right sided shift secondary to a large left MCA infarct. ASSESSMENT: 1. Diabetes. 2. Schizophrenia. 3. Bipolar. 4. Hypertension. PLAN: She needs to be intubated to protect her airways. We will see whether Neurosurgeryis recommending , more mannitol, Long-term prognosis is grave. I discussed the findings with the mother, who is in the hospital here today. she is full code TIME SPENT: One-half hour of critical time. Job ID: [id number] MTDD
[2019-12-02] MEDS ORDERED: Insulin Glargine 5 UNITS in Pre-Filled Syringe 1 EACH SC SCH (09:00)
[2019-12-02 09:06] LABS: Protein C Activity 116 % (78-152)
[2019-12-02] MEDS: Famotidine/PF 20 mg/2ml Vial SLOW IVP SCH ×2 (09:08→20:39)
--- NOTE | 2019-12-02 09:14 | RAD ---
CHEST 1 VIEW: Date: 12/02/2019 INDICATION: History of intubation. COMPARISON: Prior exam dated 11/19/2018. FINDINGS: ET tube and gastric catheter are present. ET tube tip is seen just below the level of the thoracic in let. Gastric catheter projects beyond the left hemidiaphragm, beyond the field of view. Lungs are maya ar. No pleural effusion or pneumothorax evident. No acute osseous abnormality is evident. IMPRESSION: Interval intubation and gastric catheter placement. No acute cardiopulmonary abnormality. POS: BH
[2019-12-02] MEDS ORDERED: manNITOL 20% 500 ML ONE (10:26)
[2019-12-02] MEDS: Communication Order-Pharmacy FS SCH ×3 (10:38→20:30)
[2019-12-02 10:39] LABS: Actual Bicarbonate (HCO3a) 17.7 mEq/L (22-28); Base Excess (BEa) -4.3 mEq/L (-2.0 to +3.0); Calcium, Ionized (arterial) 1.14 mmol/L (1.12-1.30); Carboxyhemoglobin (COHb) 0.4 gm% (0.0-3.0); Hemoglobin (Hb) 12.3 g/dL (12.0-16.0); O2 Tension (PaO2), arterial 113.7 mmHg (80.0-100.0); Potassium - ABG Lab 3.08 mmol/L (3.70-5.30); pH, Arterial 7.47 (7.35-7.45)
[2019-12-02 10:40] LABS: CO2 Tension 24.8 mmHg (35.0-45.0); Puncture Site RRA
[2019-12-02] MEDS ORDERED: Phenylephrine 10 MG/ML VIAL ONE (10:40)
[2019-12-02] MEDS ORDERED: Fentanyl 250 MCG/5 ML VIAL ONE (10:40)
[2019-12-02 10:41] LABS: Factor VIII Test 353.8 % ACTIVE (56-157)
[2019-12-02 11:00] LABS: HEX PHOS LA Tube 1 38.6 SEC
[2019-12-02 11:01] LABS: HEX PHOS LA Tube 2 36.6 SEC
--- NOTE | 2019-12-02 11:50 | PRG ---
DATE OF SERVICE: 12/02/2019 SUBJECTIVE: She was intubated today using a bite block, a 7.5 endotracheal tube over the bronchoscope. Attempted to intubate her with versed 2mg andmorphine 4mg using a GlideScope resulted in 2 endotracheal tubes being busted. She was still biting the tube. Therefore, oral bite block was placed and 7.5 endotracheal tube placed over the bronchoscope passed via the vocal cords into the trachea. She was bagged, bronchoscope was re-passed again and moderate amount of relatively thick mucus was removed and suctioned. Both lungs were inspected. There was no endobronchial obstruction, blood, or pus. She is connected to respirator. To note, she has been less responsive this morning. OBJECTIVE: VITAL SIGNS: Her blood pressure is 189/109, respiratory rate 18, pulse _110 , sats are 98%. She has been vomiting. CHEST: Rhonchi. CARDIAC: Normal S1, S2. No gallops. ABDOMEN: No masses. LABORATORY DATA: White count 10,000. ASSESSMENT: Massive CVA with cerebral edema, change in mental status, requiring emergency intubation. PLAN: Discussed with Neurosurgery regarding ongoing care, supportive care. This is intubation exclusive of one-half hour critical care time. Job ID: [id number] [facility]
--- NOTE | 2019-12-02 12:41 | PDOC.HOSPP ---
- Subjective Encounter Date: 12/02/19 Subjective: NEUROLOGY PROGRESS NOTE Patient had acute decline in mental status yesterday. Stat HCT showed midline shift with cerebral edema. Continues to be somnolent. HCT repeated yesterday and it was decided to proceed to neurosurgical intervention. - Objective Vital Signs & Weight: Vital Signs (12 hours) Temp Pulse Resp BP 12/02/19 09:50 94 12/02/19 09:13 93 171/100 H 12/02/19 08:48 20 12/02/19 07:00 98.6 F 12/02/19 04:00 99.1 F 12/02/19 03:02 105 H 182/106 H Weight Admit Weight 163 lb Weight 155 lb 13.869 oz Most Recent Monitor Data Heart Rate from ECG 92 NIBP 171/108 NIBP BP-Mean 129 Respiration from ECG 20 SpO2 100 I&O: 12/01/19 12/02/19 12/03/19 06:59 06:59 06:59 Intake Total 1688 Output Total 16 8480 411 Balance -80 -782 -775 Result Diagrams: 12/02/19 03:19 12/02/19 03:19 Additional Labs: Accuchecks 12/02/19 12/02/19 12/01/19 08:24 04:16 23:12 POC Glucose 290 H 238 H 236 H 12/01/19 12/01/19 12/01/19 21:09 16:50 12:28 POC Glucose 209 H 206 H 191 H Radiology Reviewed by me: Yes EKG Reviewed by me: Yes Hospitalist ROS - Review of Systems ROS unobtainable: due to mental status - Medication Medications: Active Medications Generic Name Dose Route Start Last Admin Trade Name Freq PRN Reason Stop Dose Admin Acetaminophen 650 mg 12/01/19 07:30 12/01/19 14:38 Tylenol WV 650 mg Q4H PRN Administration Headache/Fever or Pain Clotrimazole 0 gm 12/01/19 21:00 12/01/19 22:40 Clotrimazole 2% 3 Day Vag Cr VAG 12/03/19 21:01 1 applic HS JESSICA Administration Famotidine 20 mg 12/01/19 09:00 12/02/19 09:08 Pepcid SLOW IVP 20 mg DAILY JESSICA Administration Insulin Human Regular 100 101 mls @ 0 mls/hr 11/30/19 23:45 12/01/19 00:53 units/ Sodium Chloride IVPB 101 mls INF JESSICA Administration Protocol Titrate Potassium Chloride 40 meq/ 270 mls @ 135 mls/hr 11/30/19 23:45 12/02/19 07:57 Sodium Chloride IVPB 270 mls ASDIR PRN Administration FOR SERUM K+ 2.5 - 3.5 Sodium Chloride 1,000 mls @ 100 mls/hr 12/01/19 02:15 12/02/19 10:38 Normal Saline 0.9% IV Not Given .Q10H JESSICA Insulin Glargine 5 units/ 0.05 mls @ 0 mls/hr 12/02/19 09:00 12/02/19 08:15 Miscellaneous Medication SC 0.05 mls QAM JESSICA Administration Insulin Human Lispro 0 units 11/30/19 23:24 12/02/19 09:03 Humalog SC 6 unit .MODERATE SLIDING SC PRN Administration Moderate Correctional Scale Labetalol HCl 10 mg 11/30/19 23:24 12/02/19 03:02 Normodyne SLOW IVP 10 mg Q10MIN PRN Administration SBP > 180 or DBP > 105 Mannitol 500 ml 12/02/19 10:30 12/02/19 10:37 Mannitol 20% IVPB 12/02/19 13:00 Not Given NOW JESSICA Miscellaneous Information 1 each 11/30/19 23:24 12/02/19 10:38 Communication Order-Pharmacy FS 12/05/19 23:25 1 each NOW JESSICA Administration Ondansetron HCl 4 mg 11/30/19 23:24 12/02/19 08:15 Zofran IVP 4 mg Q6H PRN Administration Nausea/Vomiting Sodium Chloride 10 ml 12/01/19 09:00 12/02/19 10:33 Flush - Normal Saline IVF 10 ml Q12HR JESSICA Administration - Exam General Appearance: ill appearing Eye: PERRL ENT: normocephalic atraumatic Neck: supple Heart: RRR Respiratory: CTAB Gastrointestinal: soft, no bruit Extremities: no cyanosis Skin: normal turgor, no lesions, no rashes Neurological: facial droop, hemiplegia, speech deficit Neurological - other findings: right hemiplegia, rt facial droop Musculoskeletal: no muscle wasting Psychiatric: somnolent, lethargic Hosp A/P (1) Left acute arterial ischemic stroke, MCA (middle cerebral artery) Code(s): I63.512 - CEREB INFRC D/T UNSP OCCLS OR STENOS OF LEFT MID CEREB ART Status: Acute (2) DM hyperosmolarity type II Code(s): E11.00 - TYPE 2 DIAB W HYPROSM W/O NONKET HYPRGLY-HYPROS COMA (NKHHC) Status: Acute (3) Hypertension Code(s): I10 - ESSENTIAL (PRIMARY) HYPERTENSION Status: Acute (4) Schizophrenia Code(s): F20.9 - SCHIZOPHRENIA, UNSPECIFIED Status: Acute - Plan plan discussed w/ family, PT/OT, DVT proph w/lovenox 39 year old with acute CVA with worsening mental status . HCT showed cerebral edema with midline shift. Worsening neurological decline . Neurosurgical intervention today. Neurochecks every 2 hours. EEG completed. Will follow up on read. BP control Stroke work up including MRI Brain and 2D echo when stable. Hold off to AC at this time. Telemetry. PT/OT/Speech when stable.
--- NOTE | 2019-12-02 13:11 | CT ---
BRAIN CT WITHOUT IV CONTRAST: Date: 12/02/2019 HISTORY: Follow-up infarct, worsening neurologic status, not following commands. COMPARISON: 12/02/2019 at 0436 hours. FINDINGS: There are extensive edematous changes and mass effect from the left middle cerebral artery distributi on infarct. There is approximately 0.8 cm of midline shift to the right compared to 0.7 cm of midline shift to the right on the prior exam. No evidence for significant new hemorrhage. No significant dil atation of the right lateral ventricle temporal horn. IMPRESSION: Minimally worsening right-sided mass effect from extensive edema and mass effect secondary to large l eft middle cerebral artery distribution infarct. No evidence for overt new hemorrhage. POS: RRE
[2019-12-02] MEDS ORDERED: PHENYLEPHRINE-NS 100 MCG/ML 10 ML SYRINGE ONE (13:14)
[2019-12-02] MEDS ORDERED: Vecuronium 10 MG VIAL ONE (13:14)
[2019-12-02] MEDS ORDERED: Rocuronium Bromide 10 MG/ML (10ML VIAL) ONE (13:14)
--- NOTE | 2019-12-02 13:40 | OP ---
DATE OF PROCEDURE: 12/02/2019 CARBONATING STONE CLEANER: Nina Mays PA-C PROCEDURE PERFORMED: Left decompressive craniectomy. DESCRIPTION OF PROCEDURE: The patient was brought to the operating room and intubated. She was positioned supine and the head turned to left exposing the left frontotemporal region. A curvilinear incision was made and the scalp was reflected anteriorly. A standard large left frontotemporal craniotomy was performed. The dura was then opened and as expected, the brain was quite tight and expressing itself through the durotomy defect. A large durotomy was performed and the dura was resected. Non-suturable DuraGen was then laid over the brain. The scalp was then closed in anatomic layers. Job ID: [id number]
--- NOTE | 2019-12-02 13:46 | PRG ---
DATE OF SERVICE: 12/02/2019 The patient is seen and examined. I agree with Nina Mays's evaluation on 11/30 and 12/01. The patient is a 39-year-old woman, who was found poorly responsive and noted to be right hemiparetic and aphasic. Evaluation revealed a large left MCA pattern infarct. No definitive etiology was identified, but a CT angiogram did show embolus and occlusion of distal M3 branch. This was not felt to be amenable to angiographic intervention and the patient received IV tPA. Since that time, the patient has had progressive mass effect as well as neurologic decline. Last night, she was treated with mannitol 100 g and remain intermittently interactive. This morning, she began to be unable to maintain her airway, had vomitus and was a lot less responsive. Her current physical exam reveals both pupils are reactive, however, the left pupil is somewhat sluggish by comparison. She has some extensor posture in the right arm and withdrawal on the left. CT scan has revealed some increase in mass effect with increased left to right shift. IMPRESSION AND PLAN: The patient has progressive mass effect related to a large infarct. Given her young age, we had decided on decompressive craniectomy for the purpose of life preservation neurologic deficit. I discussed this with the patient's boyfriend. The mother had just been in the room to discuss with other physicians and provided consent, but has a significant tachyarrhythmia, which is currently being managed and she was not available for additional discussion at this time. Job ID: [id number]
[2019-12-02] MEDS ORDERED: Dextrose 5% in Water 1,000 ML IV PRN (15:07)
[2019-12-02] MEDS ORDERED: Dextrose 50% Abboject 50 ML SYRINGE IVP PRN (15:07)
--- NOTE | 2019-12-02 16:24 | EEG ---
Referring Physician: Suyapa SUTHERLAND EEG # [id number] TEST TYPE: ROUTINE PORTABLE VIDEO EEG REPORT: This EEG was performed using 24 channel SentinelOne video digital EEG machine with 24 disc electrodes. This was a routine EEG recording. BACKGROUND: There is a nonsustained posterior background rhythm of 7-8 hertz on the right. No posterior background rhythm on the left. HYPERVENTILATION: Was not performed. PHOTIC STIMULATION: Minimal response seen with photic stimulation. SLEEP: Drowsiness and sleep are observed. EEG DIAGNOSIS: 1.) Intermittent irregular theta activity is seen throughout the recording. 2.) Nonsustained slow posterior background rhythm on the right. Absence of posterior background rhythm on the left. 3.) Low amplitude EEG with delta activity seen on the left. CLINICAL INTERPRETATION: THIS EEG IS CONSISTENT WITH FOCAL CEREBRAL DYSFUNCTION IN THE LEFT CEREBRAL HEMISPHERE. THERE IS ALSO EVIDENCE OF MODERATE GENERALIZED NONSPECIFIC CEREBRAL DYSFUNCTION. NO ICTAL OR INTERICTAL EPILEPTIFORM ABNORMALITIES SEEN DURING THE RECORDING. Cook Italian Style Food: MARYLU Trade Analyst: [email or web address] PRESLEY
[2019-12-02] MEDS: Acetaminophen 650 MG Suppository PR PRN (17:36)
[2019-12-02 17:42] LABS: Cardiolipin IgA Ab 3.5 APL-U/mL (<14 Negative); Cardiolipin IgG Ab Less than 0.5 GPL-U/mL (<10 Negative); Cardiolipin IgM Ab Less than 0.8 MPL-U/mL (<10 Negative); EliA APS New Method **** NEW METHOD ****
--- NOTE | 2019-12-02 19:06 | RAD ---
CHEST ONE VIEW: 11/30/09 HISTORY: Fever and aspiration. COMPARISON: Radiograph same day. FINDINGS: Subtle increased air space opacity within the lingula and left lower lobe. No pneumothorax. Enteric t ube tip below diaphragm and out of field of view. Endotracheal tube above the prasanth, 2.3 cm. IMPRESSION: New lingula and left lower lobe air space opacities can be seen with aspiration pneumonia. POS: HOME
[2019-12-02] MEDS: Morphine 2 MG/ML SYRINGE SLOW IVP PRN (19:17)
[2019-12-02 19:41] LABS: #Lymphocytes 1.2 thou/uL (1.20-3.40); #Monocytes 1.1 thou/uL (0.11-0.59); #Neutrophils 9.6 thou/uL (1.40-6.50); %Basophils 0.3 % (0.0-1.0); %Eosinophils 0.1 % (0.0-10.0); %Lymphocytes 10.1 % (21.0-51.0); %Monocytes 9.1 % (0.0-10.0); %Neutrophils 80.3 % (42.0-75.0); Hemoglobin 10.2 g/dL (12.0-16.0); Mean Corpuscular HGB CONC 34.1 g/dL (32.0-36.0); Mean Corpuscular Hemoglobin 32.3 pg (27.0-31.0); Mean Corpuscular Volume 94.7 fL (78.0-98.0); Mean Platelet Volume 9.3 fL (7.4-10.4); Platelet Count 218 thou/uL (130-400); RBC Distribution Width 12.2 % (11.5-14.5); Red Blood Cell (RBC) Count 3.17 mill/uL (4.20-5.40)
[2019-12-02] MEDS: Clotrimazole 2% 3 Day Vag Cr 22.2 GM TUBE VAG SCH (20:30)
[2019-12-02] MEDS ORDERED: Insulin Glargine 10 UNITS in Pre-Filled Syringe 1 EACH SC SCH (21:00)
[2019-12-03] MEDS: HumaLOG 300 UNITS/3 ML VIAL SC PRN ×4 (00:46→15:55)
[2019-12-03 03:35] LABS: #Lymphocytes 1.3 thou/uL (1.20-3.40); #Monocytes 1.3 thou/uL (0.11-0.59); #Neutrophils 13.4 thou/uL (1.40-6.50); %Basophils 0.1 % (0.0-1.0); %Eosinophils 0.2 % (0.0-10.0); %Monocytes 8.1 % (0.0-10.0); %Neutrophils 83.6 % (42.0-75.0); Hemoglobin 10.7 g/dL (12.0-16.0); Mean Corpuscular HGB CONC 33.1 g/dL (32.0-36.0); Mean Corpuscular Hemoglobin 31.2 pg (27.0-31.0); Mean Corpuscular Volume 94.1 fL (78.0-98.0); Mean Platelet Volume 9.8 fL (7.4-10.4); Platelet Count 226 thou/uL (130-400); RBC Distribution Width 12.1 % (11.5-14.5); Red Blood Cell (RBC) Count 3.43 mill/uL (4.20-5.40); White Blood Cell (WBC) Count 16.1 thou/uL (4.8-10.8)
[2019-12-03] MEDS: Labetalol HCl 100 MG/20 ML VIAL SLOW IVP PRN (03:53)
[2019-12-03] MEDS ORDERED: Lorazepam 2 MG/ML VIAL SLOW IVP PRN (03:54)
[2019-12-03] MEDS: hydrALAZINE 20 MG/ML VIAL SLOW IVP PRN (04:27)
[2019-12-03] MEDS: Sodium Chloride 0.9% 1,000 ML IV SCH ×2 (04:29→14:16)
[2019-12-03 05:15] LABS: Actual Bicarbonate (HCO3a) 17.8 mEq/L (22-28); Base Excess (BEa) -4.7 mEq/L (-2.0 to +3.0); Calcium, Ionized (arterial) 1.12 mmol/L (1.12-1.30); Carboxyhemoglobin (COHb) 0.5 gm% (0.0-3.0); O2 Tension (PaO2), arterial 177.1 mmHg (80.0-100.0); Potassium - ABG Lab 3.16 mmol/L (3.70-5.30); pH, Arterial 7.46 (7.35-7.45)
[2019-12-03 05:27] LABS: ALV-art Gradient 75.975 (0-20); CO2 Tension 25.7 mmHg (35.0-45.0); Puncture Site RRA
[2019-12-03] MEDS ORDERED: Ampicillin/Sulbactam 1.5 GM in Sodium Chloride 0.9% 100 ML IVPB SCH (06:00)
[2019-12-03] MEDS: Potassium Chloride 40 MEQ in Sodium Chloride 0.9% 250 ML 250 ML IVPB PRN (06:33)
[2019-12-03] MEDS ORDERED: Insulin Glargine 15 UNITS in Pre-Filled Syringe 1 EACH SC SCH (07:02)
--- NOTE | 2019-12-03 07:14 | PDOC.FM ---
- Subjective Subjective: Had fever last night of 101F. Given tylenol. CXR showed inc opacification in left lower lobe lung opacities. More repsonsive this AM, responds to verbal command with left extremities Withdraws to pain with nail bed pressure on right extremities No spontaneous eye opening but nurse reported she had last night - Objective MAR Reviewed: Yes Vital Signs & Weight: Vital Signs (12 hours) Temp Pulse Resp BP Pulse Ox 12/03/19 06:00 24 H 12/03/19 04:27 117 H 160/98 H 12/03/19 04:00 99.8 F H 16 12/03/19 03:53 117 H 160/98 H 12/03/19 03:32 117 H 160/98 H 12/03/19 02:00 16 12/03/19 01:28 114 H 12/03/19 00:00 100.0 F H 16 12/02/19 22:00 16 12/02/19 21:49 105 H 153/101 H 12/02/19 20:00 98.9 F 16 100 Weight Admit Weight 73.936 kg Weight 72.6 kg Most Recent Monitor Data Heart Rate from ECG 124 NIBP 139/87 NIBP BP-Mean 104 Respiration from ECG 21 SpO2 100 I&O: 12/02/19 12/03/19 12/04/19 06:59 06:59 06:59 Intake Total 1688 2787.9 Output Total 2470 2657 Balance -782 130.9 Result Diagrams: 12/03/19 03:08 12/03/19 07:10 Phys Exam - Physical Examination Constitutional: NAD dressing over scalp from craniectomy, no overt bleeding sluggish pupils but reactive Respiratory: no wheezing, clear to auscultation bilateral Cardiovascular: no significant murmur tachycardic Gastrointestinal: soft, non-tender, positive bowel sounds Musculoskeletal: no edema withdraws to pain on right side responds to verbal command on left side Dx/Plan (1) DM hyperosmolarity type II Code(s): E11.00 - TYPE 2 DIAB W HYPROSM W/O NONKET HYPRGLY-HYPROS COMA ([facility]) Status: Acute (2) Hypertension Code(s): I10 - ESSENTIAL (PRIMARY) HYPERTENSION Status: Acute (3) Left acute arterial ischemic stroke, MCA (middle cerebral artery) Code(s): I63.512 - CEREB INFRC D/T UNSP OCCLS OR STENOS OF LEFT MID CEREB ART Status: Acute (4) Schizophrenia Code(s): F20.9 - SCHIZOPHRENIA, UNSPECIFIED Status: Acute - Plan Plan: Ischemic CVA of L MCA with midline shift S/P Alteplease 11/29 S/P Left hemicraniectomy, POD1 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 Factor 8 BP elevated requiring multiple IV PRNs, will resume PO labetalol for goal SBP < 140 Resume seroquel & risperidal qhs to aid in agitation which could be contributing to elevated BPs Neurosurgery following, recs appreciated Fever Neurogenic vs. Infectious from aspiration PNA Stable CXR with LLL opacities, started unasyn. Procal pending. Elevated WBC, no bands. Continue supportive care Hyperglycemia in IDDM2 A1c >14% Titrate up long acting insulin Continue sliding scale Bipolar/Schizophrenia Stable, will resume home meds cHTN Stable Dispo: Monitor neurologic status. BP and agitation control are goals for today. 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 [] I agree with the History, Examination, Assessment and Plan documented above with any addition or exceptions noted below. At time of my exam patient less responsive but per nursing and family patient waxing and waning. Will likely need trach and peg in next few days. Continue supportive care. Appreciate specialist recs. Prognosis is still guarded.
[2019-12-03] MEDS: Lorazepam 2 MG/ML VIAL SLOW IVP PRN ×4 (07:46→22:14)
[2019-12-03 07:54] LABS: ALT (SGPT) 9 U/L (8-55); AST (SGOT) 18 U/L (5-34); Albumin 3.4 g/dL (3.5-5.0); Alkaline Phosphatase 57 U/L (40-110); Anion Gap 12 mmol/L (10-20); BUN (Urea Nitrogen) 8 mg/dL (7.0-18.7); Bilirubin, Total 0.4 mg/dL (0.2-1.2); Calc. Creatinine Clearance 106 mL/min (70-130); Carbon Dioxide 19 mmol/L (22-29); Chloride 114 mmol/L (98-107); Estimated GFR-MDRD Greater than 90; Globulin 2.9 g/dL (2.4-3.5); Glucose 172 mg/dL (70-105); Potassium 3.4 mmol/L (3.5-5.1); Protein, Total 6.3 g/dL (6.0-8.3); Sodium 142 mmol/L (136-145)
[2019-12-03 08:01] LABS: Cardiac Risk 3.3 (Less than 4.5)
--- NOTE | 2019-12-03 08:15 | RAD ---
PORTABLE CHEST: HISTORY: Intubation on ventilator. CCU followup. COMPARISON: 12/02/2019. FINDINGS: Lung hahn appear clear. No infiltrate or vascular congestion. Heart and mediastinum unremarkable. ET tube has tip above the prasanth and is unchanged. IMPRESSION: No acute lung process identified. POS: AGW
[2019-12-03] MEDS: Famotidine/PF 20 mg/2ml Vial SLOW IVP SCH ×2 (08:22→20:56)
[2019-12-03] MEDS: NIFEdipine XL 30 MG TAB PO SCH (08:22)
[2019-12-03] MEDS: Labetalol 100 MG TAB PO SCH ×2 (08:23→20:56)
--- NOTE | 2019-12-03 08:32 | PRG ---
DATE OF SERVICE: 12/03/2019 SUBJECTIVE: Ms. Jacome was more alert this morning. She eye opens to stimulus and briskly follows commands with the left arm. The patient is responding favorably to decompressive hemicraniectomy after large left middle cerebral artery infarction. We will continue to stay the course for several days. ICU is following. We will wean from ventilator as appropriate. I would recommend holding any anticoagulation, anti-platelet agents for at least 48 hours. Job ID: [id number]
--- NOTE | 2019-12-03 08:43 | PRG ---
DATE OF SERVICE: 12/03/2019 SUBJECTIVE: Rani Jacome is a 39-year-old female status post craniotomy for a large left-sided CVA. She is not moving her right side. OBJECTIVE: VITAL SIGNS: She has a low-grade temperature, probably postop, blood pressure 138/90, pulse 80, respirations of 20. CHEST: Decreased breath sounds without any wheezing. CARDIAC: Normal S1, S2. No gallops. ABDOMEN: No masses. LABORATORY DATA: PO2 is 177, pCO2 27 ph 7.47 rate of 16, 40%. Lytes are normal. Potassium 3.4. X-ray shows no acute infiltrates. ASSESSMENT: Postop fever, cerebrovascular accident with right-sided hemiparesis , cerebral edema, status post craniotomy. PLAN: Empiric antibiotics for a few days. We will try and get her off the vent. Continue supportive care. She is going to eventually require placement of PEG for feeding purposes. One-half hour of critical time. Job ID: [id number] MTDD
[2019-12-03] MEDS ORDERED: Insulin Glargine 10 UNITS in Pre-Filled Syringe 1 EACH SC SCH (09:00)
[2019-12-03] MEDS: Piperacillin/Tazobactam 3.375 GM in Sodium Chloride 0.9% 100 ML IVPB SCH ×2 (11:44→17:36)
[2019-12-03] MEDS ORDERED: Pancrelipase DR 12000 1 CAP FS PRN (13:36)
[2019-12-03] MEDS ORDERED: Sodium Bicarbonate Tab 325 MG TAB PER TUBE PRN (13:36)
--- NOTE | 2019-12-03 14:37 | PDOC.HOSPP ---
- Subjective Encounter Date: 12/03/19 Subjective: NEUROLOGY PROGRESS NOTE Patient followed commands on the left after decompressive hemicraniectomy due to large LMCA stroke. - Objective Vital Signs & Weight: Vital Signs (12 hours) Temp Pulse Pulse Pulse Resp BP BP 12/03/19 14:19 122 H 12/03/19 14:00 17 12/03/19 12:00 101.3 F H 14 12/03/19 11:25 119 H 110 H 129/82 12/03/19 10:03 121 H 12/03/19 10:00 16 12/03/19 08:23 125 H 12/03/19 08:22 125 H 12/03/19 08:00 18 12/03/19 07:25 125 H 12/03/19 07:06 12/03/19 06:00 24 H 12/03/19 04:27 117 H 160/98 H 12/03/19 04:00 99.8 F H 16 12/03/19 03:53 117 H 160/98 H 12/03/19 03:32 117 H 160/98 H BP Pulse Ox Pulse Ox Pulse Ox 12/03/19 14:19 12/03/19 14:00 12/03/19 12:00 12/03/19 11:25 132/83 100 100 12/03/19 10:03 12/03/19 10:00 12/03/19 08:23 12/03/19 08:22 12/03/19 08:00 12/03/19 07:25 12/03/19 07:06 100 12/03/19 06:00 12/03/19 04:27 12/03/19 04:00 12/03/19 03:53 12/03/19 03:32 Weight Admit Weight 163 lb Weight 160 lb 0.889 oz Most Recent Monitor Data Heart Rate from ECG 126 NIBP 125/74 NIBP BP-Mean 91 Respiration from ECG 22 SpO2 100 I&O: 12/02/19 12/03/19 12/04/19 06:59 06:59 06:59 Intake Total 1688 2787.9 1152 Output Total 2470 2657 195 Balance -782 130.9 957 Result Diagrams: 12/03/19 03:08 12/03/19 07:10 Additional Labs: Accuchecks 06/09/1812/03/19 12/03/19 11:57 07:57 05:15 POC Glucose 143 H 154 H 193 H 12/03/19 12/02/19 12/02/19 00:24 20:32 17:30 POC Glucose 186 H 136 H 162 H Radiology Reviewed by me: Yes EKG Reviewed by me: Yes Hospitalist ROS - Review of Systems ROS unobtainable: due to mental status - Medication Medications: Active Medications Generic Name Dose Route Start Last Admin Trade Name Freq PRN Reason Stop Dose Admin Acetaminophen 650 mg 12/01/19 07:30 12/02/19 17:36 Tylenol SD 650 mg Q4H PRN Administration Headache/Fever or Pain Clotrimazole 0 gm 12/01/19 21:00 12/02/19 20:30 Clotrimazole 2% 3 Day Vag Cr VAG 12/03/19 21:01 1 applic HS JESSICA Administration Famotidine 20 mg 12/02/19 21:00 12/03/19 08:22 Pepcid SLOW IVP 20 mg BID JESSICA Administration Hydralazine HCl 10 mg 11/30/19 23:24 12/03/19 04:27 Apresoline SLOW IVP 10 mg Q4H PRN Administration SBP <= 140 or DBP <= 105 Insulin Human Regular 100 101 mls @ 0 mls/hr 11/30/19 23:45 12/01/19 00:53 units/ Sodium Chloride IVPB 101 mls INF JESSICA Administration Protocol Titrate Potassium Chloride 40 meq/ 270 mls @ 135 mls/hr 11/30/19 23:45 12/03/19 06:33 Sodium Chloride IVPB 270 mls ASDIR PRN Administration FOR SERUM K+ 2.5 - 3.5 Sodium Chloride 1,000 mls @ 100 mls/hr 12/01/19 02:15 12/03/19 14:16 Normal Saline 0.9% IV 1,000 mls .Q10H JESSICA Administration Piperacillin Sod/Tazobactam 100 mls @ 200 mls/hr 12/03/19 12:00 12/03/19 11: 44 Sod 3.375 gm/ Sodium Chloride IVPB 100 mls Q6HR JESSICA Administration Insulin Human Lispro 0 units 11/30/19 23:24 12/03/19 07:56 Humalog SC 2 unit .MODERATE SLIDING SC PRN Administration Moderate Correctional Scale Labetalol HCl 10 mg 11/30/19 23:24 12/03/19 03:53 Normodyne SLOW IVP 10 mg Q10MIN PRN Administration SBP <= 140 or DBP <= 105 Labetalol HCl 100 mg 12/03/19 09:00 12/03/19 08:23 Normodyne PO 100 mg BID JESSICA Administration Lorazepam 1 mg 12/03/19 07:21 12/03/19 11:43 Ativan SLOW IVP 1 mg Q4H PRN Administration Agitation Miscellaneous Information 1 each 11/30/19 23:24 12/02/19 20:30 Communication Order-Pharmacy FS 12/05/19 23:25 1 each NOW JESSICA Administration Morphine Sulfate 2 mg 12/02/19 15:06 12/02/19 19:17 Morphine SLOW IVP 2 mg Q4H PRN Administration PAIN/AGITATION Nifedipine 30 mg 12/03/19 09:00 12/03/19 08:22 Procardia Xl PO 30 mg DAILY JESSICA Administration Ondansetron HCl 4 mg 11/30/19 23:24 12/02/19 08:15 Zofran IVP 4 mg Q6H PRN Administration Nausea/Vomiting Sodium Chloride 10 ml 12/01/19 09:00 12/03/19 08:24 Flush - Normal Saline IVF 10 ml Q12HR JESSICA Administration - Exam General Appearance: ill appearing Eye: PERRL ENT: normocephalic atraumatic Neck: supple Heart: RRR Respiratory: CTAB Gastrointestinal: soft Extremities: no cyanosis Skin: normal turgor Neurological: no new deficit, facial droop, hemiplegia, speech deficit Psychiatric: somnolent Hosp A/P (1) Left acute arterial ischemic stroke, MCA (middle cerebral artery) Code(s): I63.512 - CEREB INFRC D/T UNSP OCCLS OR STENOS OF LEFT MID CEREB ART Status: Acute (2) DM hyperosmolarity type II Code(s): E11.00 - TYPE 2 DIAB W HYPROSM W/O NONKET HYPRGLY-HYPROS COMA ([facility]) Status: Acute (3) Hypertension Code(s): I10 - ESSENTIAL (PRIMARY) HYPERTENSION Status: Acute (4) Schizophrenia Code(s): F20.9 - SCHIZOPHRENIA, UNSPECIFIED Status: Acute - Plan 39 year old with acute CVA s/p decompressive hemicraniectomy due to large LMCA stroke. Doing clinically better Neurochecks every 2 hours. EEG reviewed and was negative for seizure activity. BP control Stroke work up including MRI Brain and 2D echo when stable. Hold off to AC at this time. Telemetry. PT/OT/Speech when stable. Plan discussed with family member and the resident.
--- NOTE | 2019-12-03 15:21 | CT ---
CTA of the head with IV contrast and 3-D reformatted imaging. CTA of the neck with IV contrast and 3-D reformatted imaging. INDICATION: Stroke COMPARISON: CT the brain without contrast dated 11/30/2019 and 11/27/2019 FINDINGS: CTA OF THE HEAD WITH CONTRAST: CTA OF THE BRAIN: Right ICA: Diffusely small but patent. Right MCA: Patent. Right FREDIS: Patent. ACOM: Patent. Left ICA: Diffusely small but patent Left MCA: There is abrupt cut off of the distal left MCA at the level of the M3 branching. There is some reconstitution of flow within distal branching of the left MCA distribution likely through cortical collaterals. This is most evident on axial image 175 of series 2. Left FREDIS: Patent. PCOMs: There is patency of both posterior communicating arteries. Vertebral arteries: Both appear slightly small but patent. Basilar Artery: Small but patent maintenance person: Patent. Incidentals: The hypodense lesion involving the anterolateral left frontal cortex demonstrates no de finite enhancement. CTA OF THE NECK WITH CONTRAST: Right CCA: Patent. Right ICA: Patent. Right Subclavian: Patent. Right Vertebral Artery: Patent. Left CCA: Patent. Left ICA: Patent. Left Subclavian: Patent. Left Vertebral Artery: Patent. Aerodigestive tract: Clear. Parotids/Submandibular/Thyroid glands: Normal. Lymph nodes: No pathologically enlarged lymph nodes. Lung Apices: Clear. Bones: No acute osseous abnormality. Incidentals: None. IMPRESSION: 1. Occlusion of the distal left MCA at the level of the M3 branching. 2. Linear hypodense lesion involving the left anterolateral cortex of the left frontal lobe. This is nonspecific and may reflect sequela of remote infarct; however, small developmental cleft is not entirely excluded. Follow-up MRI of brain with and without contrast is recommended for further charac terization. 3. Findings discussed with Dr. Haji at 10:20 PM on 11/30/2019. Transcribed Date/Time: 12/03/2019 3:20 PM
[2019-12-03] MEDS: Acetaminophen 650 MG Suppository PR PRN (16:58)
[2019-12-03] MEDS: Atorvastatin Calcium 40 MG TAB PO SCH (20:55)
[2019-12-03] MEDS ORDERED: QUETIAPINE FUMARATE 200 MG PO SCH (21:00)
[2019-12-03] MEDS: Clotrimazole 2% 3 Day Vag Cr 22.2 GM TUBE VAG SCH (21:02)
[2019-12-04] MEDS: Morphine 2 MG/ML SYRINGE SLOW IVP PRN (00:32)
[2019-12-04] MEDS: Piperacillin/Tazobactam 3.375 GM in Sodium Chloride 0.9% 100 ML IVPB SCH ×4 (00:33→18:13)
[2019-12-04] MEDS: HumaLOG 300 UNITS/3 ML VIAL SC PRN ×5 (00:34→20:48)
[2019-12-04] MEDS: Communication Order-Pharmacy FS SCH (00:44)
[2019-12-04] MEDS: Labetalol HCl 100 MG/20 ML VIAL SLOW IVP PRN ×2 (01:04→01:17)
[2019-12-04] MEDS: Sodium Chloride 0.9% 1,000 ML IV SCH ×3 (01:04→21:20)
[2019-12-04] MEDS: hydrALAZINE 20 MG/ML VIAL SLOW IVP PRN (01:40)
[2019-12-04] MEDS: Lorazepam 2 MG/ML VIAL SLOW IVP PRN ×2 (02:17→19:47)
[2019-12-04 03:38] LABS: #Lymphocytes 1.5 thou/uL (1.20-3.40); #Monocytes 1.2 thou/uL (0.11-0.59); #Neutrophils 12.4 thou/uL (1.40-6.50); %Basophils 0.2 % (0.0-1.0); %Eosinophils 0.1 % (0.0-10.0); %Lymphocytes 10.1 % (21.0-51.0); %Monocytes 7.9 % (0.0-10.0); %Neutrophils 81.7 % (42.0-75.0); Mean Corpuscular HGB CONC 33.6 g/dL (32.0-36.0); Mean Corpuscular Hemoglobin 32.3 pg (27.0-31.0); Mean Corpuscular Volume 96.3 fL (78.0-98.0); Mean Platelet Volume 9.7 fL (7.4-10.4); Platelet Count 234 thou/uL (130-400); RBC Distribution Width 12.4 % (11.5-14.5); Red Blood Cell (RBC) Count 3.09 mill/uL (4.20-5.40); White Blood Cell (WBC) Count 15.2 thou/uL (4.8-10.8)
[2019-12-04] MEDS: Acetaminophen 650 MG Suppository PR PRN (04:28)
--- NOTE | 2019-12-04 06:34 | PRG ---
DATE OF SERVICE: 12/04/2019 SUBJECTIVE: The patient is now postoperative day #2, status post left craniectomy for decompression. She has been stable on the ICU and continues to be more responsive than previously. She has developed fever yesterday, which is continued overnight up to 101.1. Her white count is 15.2 today. Her chemistry is still pending. There was concern for possible pneumonia by the Medicine Team; however, Pulmonology felt this was less likely, could also represent neurogenic fever. She has been treated with rectal Tylenol. OBJECTIVE: On exam this morning, she does not open her eyes, but she is localizing with the left side. There is no significant withdrawal on the right. Pupils are equal, sluggish with a leftward gaze preference. Her incision is clean, dry, and intact. Her neurologic exam remained stable. PLAN: We will continue to monitor her white count and temperature closely. We appreciate Medical and pulmonology ongoing assistance with her medical needs. Job ID: [id number]
[2019-12-04 06:56] LABS: Actual Bicarbonate (HCO3a) 19.5 mEq/L (22-28); Base Excess (BEa) -3.9 mEq/L (-2.0 to +3.0); CO2 Tension 29.8 mmHg (35.0-45.0); Calcium, Ionized (arterial) 1.14 mmol/L (1.12-1.30); Carboxyhemoglobin (COHb) 0.3 gm% (0.0-3.0); Hemoglobin (Hb) 10.1 g/dL (12.0-16.0); O2 Tension (PaO2), arterial 171.6 mmHg (80.0-100.0); Potassium - ABG Lab 3.52 mmol/L (3.70-5.30); pH, Arterial 7.43 (7.35-7.45)
--- NOTE | 2019-12-04 06:59 | PDOC.FM ---
- Subjective Subjective: NAEO. Nurse reported some continued white vaginal discharge. Agitated, off sedation. OGT feeds started Required IV anthypertensives for BP control Fevers, had to give tylenol - Objective Vital Signs & Weight: Vital Signs (12 hours) Temp Pulse Resp BP Pulse Ox 12/04/19 06:40 123 H 143/98 H 12/04/19 06:00 100.2 F H 17 12/04/19 04:00 101.1 F H 16 12/04/19 02:50 124 H 135/81 12/04/19 02:00 16 12/04/19 01:40 115 H 143/78 H 12/04/19 01:17 122 H 149/93 H 12/04/19 01:04 122 H 151/91 H 12/04/19 00:21 122 H 12/04/19 00:00 100.0 F H 23 H 12/03/19 22:00 12 12/03/19 20:56 123 H 120/73 12/03/19 20:00 99.7 F H 17 100 Weight Admit Weight 73.936 kg Weight 72 kg Most Recent Monitor Data Heart Rate from ECG 122 NIBP 123/78 NIBP BP-Mean 93 Respiration from ECG 15 SpO2 100 I&O: 12/02/19 12/03/19 12/04/19 06:59 06:59 06:59 Intake Total 1688 2787.9 4382 Output Total 2470 2657 785 Balance -782 130.9 3597 Result Diagrams: 12/04/19 03:13 12/04/19 07:10 Phys Exam - Physical Examination Constitutional: NAD sluggish pupillary response to light Respiratory: no wheezing, clear to auscultation bilateral Cardiovascular: no significant murmur tachycardic Gastrointestinal: soft Musculoskeletal: no edema moves left upper and lower extremity, responds to some commands localized to pain on R extremities, GCS [id number] Deviation from normal: white vaginal discharge Dx/Plan (1) DM hyperosmolarity type II Code(s): E11.00 - TYPE 2 DIAB W HYPROSM W/O NONKET HYPRGLY-HYPROS COMA ([facility]) Status: Acute (2) Hypertension Code(s): I10 - ESSENTIAL (PRIMARY) HYPERTENSION Status: Acute (3) Left acute arterial ischemic stroke, MCA (middle cerebral artery) Code(s): I63.512 - CEREB INFRC D/T UNSP OCCLS OR STENOS OF LEFT MID CEREB ART Status: Acute (4) Schizophrenia Code(s): F20.9 - SCHIZOPHRENIA, UNSPECIFIED Status: Acute - Plan Plan: Ischemic CVA of L MCA with midline shift S/P Alteplease 11/29 S/P Left hemicraniectomy, POD2 CVA likely 2/2 uncontrolled IDDM2 and coagulopathy-inc. Factor 8 Tachycardic with BP elevated -Likely postop related vs. agitation. Will inc PO labetalol Ativan & morphine PRN, no sedation GCS9 ([id number])- Anticipating trach & peg with buttermilk drier operator placement. Neurosurgery following, recs appreciated Fever Continuing to have fever as high as 101F Likely neurogenic, but initial xray with LLL infiltrate and elevated WBC which is downtrending. No bands, neg procal. Will complete 7 day course. Supportive care Acute hypoxic respiratory failure requiring mechanical ventilation SIMV: PEEP 5, RR 10, concern for protecting airway due to mental status Continue OGT feeds Candidal vaginosis Pending LFTs will try diflucan x1 Hyperglycemia in IDDM2 A1c >14% Continue long acting insulin &SS Bipolar/Schizophrenia Stable, hold home meds to assess neuro status cHTN Home meds Dispo: Monitor neurologic status. BP and agitation control are goals for today. 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 Zambrano. I agree with the History, Examination, Assessment and Plan documented above with any addition or exceptions noted below. CPAP today on vent per pulm. CM for placement. Patient has increased factor 8 activity. Will discuss with Neuro need for buttermilk drier operator anticoagulation. Discussed with sister that she has a long road of recovery and it is unclear at this time how much function she will regain.
[2019-12-04 08:04] LABS: ALT (SGPT) 13 U/L (8-55); AST (SGOT) 27 U/L (5-34); Albumin 3.1 g/dL (3.5-5.0); Alkaline Phosphatase 59 U/L (40-110); Anion Gap 10 mmol/L (10-20); BUN (Urea Nitrogen) 13 mg/dL (7.0-18.7); Bilirubin, Total 0.3 mg/dL (0.2-1.2); Calc. Creatinine Clearance 104 mL/min (70-130); Calcium 7.7 mg/dL (7.8-10.44); Carbon Dioxide 20 mmol/L (22-29); Chloride 117 mmol/L (98-107); Estimated GFR-MDRD Greater than 90; Globulin 2.9 g/dL (2.4-3.5); Glucose 180 mg/dL (70-105); Potassium 3.4 mmol/L (3.5-5.1); Sodium 144 mmol/L (136-145)
[2019-12-04] MEDS: Labetalol 100 MG TAB PO SCH ×2 (08:30→20:50)
[2019-12-04] MEDS: Famotidine/PF 20 mg/2ml Vial SLOW IVP SCH ×2 (08:31→20:50)
--- NOTE | 2019-12-04 08:51 | PRG ---
DATE OF SERVICE: 12/04/2019 SUBJECTIVE: Rani Jacome is a 39-year-old female remains in the ICU, intubated in the vent. OBJECTIVE: VITAL SIGNS: Temperature 100.2, blood pressure 140/98, saturations are 100%, and respirations 15. I's and O's remain good. CHEST: No wheezing or crackles. CARDIAC: Normal S1 and S2. No gallops. ABDOMEN: No masses. LABORATORY DATA: White count 15,000, H and H 10 and 29, and platelet count is normal. A pO2 of 171, pCO2 of 34 ph 7.46. Lytes are normal. X-ray otherwise unremarkable status post craniotomy for CVA. ASSESSMENT: Hypertension, low-grade fever, and postop underlying bipolar schizophrenic problems. PLAN: T-piece today. She needs DVT prophylaxis. We are going to start Lovenox. Otherwise, continue supportive care. Await input from Neurology. Any additional suggestions, she may need eventually placement. She probably needs to be started on aspirin. One-half hour of critical care time. Job ID: [id number] MTDD
[2019-12-04] MEDS ORDERED: Enoxaparin Sodium 40 MG/0.4 ML SYRINGE SC SCH ×2 (09:00→11:15)
[2019-12-04] MEDS ORDERED: Aspirin 325 MG TAB PO SCH ×2 (09:00→11:15)
--- NOTE | 2019-12-04 10:11 | RAD ---
AP CHEST: Date: 12/04/2019 HISTORY: CCU follow-up, on ventilator. COMPARISON: 12/03/2019. FINDINGS: Lungs show no evidence of focal infiltrate. ET tube has tip just above prasanth and should probably be slightly retracted. The NG tube passes through the EG junction. IMPRESSION: No acute lung process or interval change. POS: AGW
--- NOTE | 2019-12-04 10:44 | PDOC.HOSPP ---
- Subjective Encounter Date: 12/04/19 Subjective: NEUROLOGY PROGRESS NOTE No acute events overnight. - Objective Vital Signs & Weight: Vital Signs (12 hours) Temp Pulse Resp BP BP 12/04/19 09:53 140/98 H 12/04/19 08:30 107 H 124/82 12/04/19 06:40 123 H 143/98 H 12/04/19 06:00 100.2 F H 17 12/04/19 04:00 101.1 F H 16 12/04/19 02:50 124 H 135/81 12/04/19 02:00 16 12/04/19 01:40 115 H 143/78 H 12/04/19 01:17 122 H 149/93 H 12/04/19 01:04 122 H 151/91 H 12/04/19 00:21 122 H 12/04/19 00:00 100.0 F H 23 H Weight Admit Weight 163 lb Weight 158 lb 11.725 oz Most Recent Monitor Data Heart Rate from ECG 107 NIBP 124/82 NIBP BP-Mean 96 Respiration from ECG 15 SpO2 100 I&O: 12/03/19 12/04/19 12/05/19 06:59 06:59 06:59 Intake Total 2787.9 4382 Output Total 2657 785 Balance 130.9 3597 Result Diagrams: 12/04/19 03:13 12/04/19 07:10 Additional Labs: Accuchecks 12/04/19 12/04/19 12/03/19 04:21 00:35 20:59 POC Glucose 250 H 188 H 134 H 12/03/19 12/03/19 15:59 11:57 POC Glucose 201 H 143 H Radiology Reviewed by me: Yes EKG Reviewed by me: Yes Hospitalist ROS - Review of Systems ROS unobtainable: due to mental status Neurological: reports: weakness - Medication Medications: Active Medications Generic Name Dose Route Start Last Admin Trade Name Freq PRN Reason Stop Dose Admin Atorvastatin Calcium 40 mg 12/03/19 21:00 12/03/19 20:55 Lipitor PO 40 mg HS JESSICA Administration Famotidine 20 mg 12/02/19 21:00 12/04/19 08:31 Pepcid SLOW IVP 20 mg BID JESSICA Administration Hydralazine HCl 10 mg 11/30/19 23:24 12/04/19 01:40 Apresoline SLOW IVP 10 mg Q4H PRN Administration SBP <= 140 or DBP <= 105 Insulin Human Regular 100 101 mls @ 0 mls/hr 11/30/19 23:45 12/01/19 00:53 units/ Sodium Chloride IVPB 101 mls INF JESSICA Administration Protocol Titrate Potassium Chloride 40 meq/ 270 mls @ 135 mls/hr 11/30/19 23:45 12/03/19 06:33 Sodium Chloride IVPB 270 mls ASDIR PRN Administration FOR SERUM K+ 2.5 - 3.5 Sodium Chloride 1,000 mls @ 100 mls/hr 12/01/19 02:15 12/04/19 01:04 Normal Saline 0.9% IV 1,000 mls .Q10H JESSICA Administration Insulin Glargine 15 units/ 0.15 mls @ 0 mls/hr 12/03/19 07:02 12/03/19 20:56 Miscellaneous Medication SC 0.15 mls HS JESSICA Administration As Directed Piperacillin Sod/Tazobactam 100 mls @ 200 mls/hr 12/03/19 12:00 12/04/19 05: 03 Sod 3.375 gm/ Sodium Chloride IVPB 100 mls Q6HR JESSICA Administration Insulin Human Lispro 0 units 11/30/19 23:24 12/04/19 04:22 Humalog SC 4 unit .MODERATE SLIDING SC PRN Administration Moderate Correctional Scale Labetalol HCl 10 mg 11/30/19 23:24 12/04/19 01:17 Normodyne SLOW IVP 10 mg Q10MIN PRN Administration SBP <= 160 Labetalol HCl 200 mg 12/04/19 07:01 12/04/19 08:30 Normodyne PO 200 mg BID JESSICA Administration Lorazepam 1 mg 12/03/19 07:21 12/04/19 02:17 Ativan SLOW IVP 1 mg Q4H PRN Administration Agitation Morphine Sulfate 2 mg 12/02/19 15:06 12/04/19 00:32 Morphine SLOW IVP 2 mg Q4H PRN Administration PAIN/AGITATION Nifedipine 30 mg 12/03/19 09:00 12/03/19 08:22 Procardia Xl PO 30 mg DAILY JESSICA Administration Ondansetron HCl 4 mg 11/30/19 23:24 12/02/19 08:15 Zofran IVP 4 mg Q6H PRN Administration Nausea/Vomiting Sodium Chloride 10 ml 12/01/19 09:00 12/04/19 08:33 Flush - Normal Saline IVF Not Given Q12HR JESSICA - Exam General Appearance: ill appearing Eye: PERRL ENT: normocephalic atraumatic Neck: supple Heart: RRR Respiratory: CTAB Gastrointestinal: soft Extremities: no cyanosis, no clubbing, no edema Skin: normal turgor Neurological: no new deficit, hemiplegia Musculoskeletal: normal tone, no muscle wasting Psychiatric: not oriented, somnolent, lethargic Hosp A/P (1) Left acute arterial ischemic stroke, MCA (middle cerebral artery) Code(s): I63.512 - CEREB INFRC D/T UNSP OCCLS OR STENOS OF LEFT MID CEREB ART Status: Acute (2) DM hyperosmolarity type II Code(s): E11.00 - TYPE 2 DIAB W HYPROSM W/O NONKET HYPRGLY-HYPROS COMA ([facility]) Status: Acute (3) Hypertension Code(s): I10 - ESSENTIAL (PRIMARY) HYPERTENSION Status: Acute (4) Schizophrenia Code(s): F20.9 - SCHIZOPHRENIA, UNSPECIFIED Status: Acute - Plan 39 year old with acute CVA s/p decompressive hemicraniectomy due to large LMCA stroke. Right now intubated. Neurochecks every 2 hours. EEG reviewed and was negative for seizure activity. BP control Stroke work up including MRI Brain and 2D echo when stable. Hold off to AC at this time. Telemetry. Neurosurgery on board. PT/OT/Speech when stable. Continue medical management per primary team Plan discussed with the sister and the resident.
[2019-12-04] MEDS: Acetaminophen 650 MG/20.3 ML UDCUP PO PRN (19:47)
[2019-12-04] MEDS: Insulin Glargine 20 UNITS in Pre-Filled Syringe 1 EACH SC SCH (20:49)
[2019-12-04] MEDS: Atorvastatin Calcium 40 MG TAB PO SCH (20:49)
[2019-12-05] MEDS: Lorazepam 2 MG/ML VIAL SLOW IVP PRN (00:07)
[2019-12-05] MEDS: Piperacillin/Tazobactam 3.375 GM in Sodium Chloride 0.9% 100 ML IVPB SCH ×2 (00:08→05:18)
[2019-12-05 04:58] LABS: #Lymphocytes 1.4 thou/uL (1.20-3.40); #Monocytes 0.9 thou/uL (0.11-0.59); #Neutrophils 10.6 thou/uL (1.40-6.50); %Basophils 0.2 % (0.0-1.0); %Eosinophils 0.2 % (0.0-10.0); %Lymphocytes 10.5 % (21.0-51.0); %Neutrophils 82.1 % (42.0-75.0); Hemoglobin 9.1 g/dL (12.0-16.0); Mean Corpuscular HGB CONC 33.6 g/dL (32.0-36.0); Mean Corpuscular Hemoglobin 32.4 pg (27.0-31.0); Mean Corpuscular Volume 96.3 fL (78.0-98.0); Mean Platelet Volume 9.9 fL (7.4-10.4); Platelet Count 242 thou/uL (130-400); RBC Distribution Width 12.3 % (11.5-14.5); Red Blood Cell (RBC) Count 2.81 mill/uL (4.20-5.40); White Blood Cell (WBC) Count 12.9 thou/uL (4.8-10.8)
[2019-12-05] MEDS: HumaLOG 300 UNITS/3 ML VIAL SC PRN ×4 (05:16→20:17)
[2019-12-05] MEDS: Sodium Chloride 0.9% 1,000 ML IV SCH (05:24)
[2019-12-05 05:25] LABS: Anion Gap 11 mmol/L (10-20); BUN (Urea Nitrogen) 11 mg/dL (7.0-18.7); Calc. Creatinine Clearance 108 mL/min (70-130); Calcium 8.1 mg/dL (7.8-10.44); Carbon Dioxide 21 mmol/L (22-29); Chloride 116 mmol/L (98-107); Estimated GFR-MDRD Greater than 90; Glucose 217 mg/dL (70-105); Potassium 4.2 mmol/L (3.5-5.1); Sodium 144 mmol/L (136-145)
--- NOTE | 2019-12-05 07:56 | PDOC.FM ---
- Subjective Subjective: NAEO. Mental status unchanged from yesterday. - Objective MAR Reviewed: Yes Vital Signs & Weight: Vital Signs (12 hours) Temp Pulse Resp BP Pulse Ox 12/05/19 06:00 21 H 12/05/19 04:00 99.8 F H 24 H 12/05/19 03:49 118 H 167/97 H 12/05/19 02:00 23 H 12/05/19 00:00 99.5 F 16 12/04/19 22:30 111 H 124/80 12/04/19 22:00 20 12/04/19 20:50 112 H 134/84 12/04/19 20:00 100.5 F H 13 100 Weight Admit Weight 73.936 kg Weight 72.1 kg Most Recent Monitor Data Heart Rate from ECG 118 NIBP 127/79 NIBP BP-Mean 95 Respiration from ECG 21 SpO2 100 I&O: 12/04/19 12/05/19 12/06/19 06:59 06:59 06:59 Intake Total 4382 4064 Output Total 785 1550 Balance 5944 1076 Result Diagrams: 12/05/19 04:15 12/05/19 04:15 Phys Exam - Physical Examination Constitutional: NAD HEENT: moist MMs bilateral swelling of neck Respiratory: no wheezing, clear to auscultation bilateral Cardiovascular: no significant murmur tachycardic Gastrointestinal: soft, non-tender Musculoskeletal: no edema non purposeful movement of LLE and LUE, responds to pain with RE sluggish pupil reaction to light Deviation from normal: sedated & intubated Dx/Plan (1) DM hyperosmolarity type II Code(s): E11.00 - TYPE 2 DIAB W HYPROSM W/O NONKET HYPRGLY-HYPROS COMA ([facility]) Status: Acute (2) Hypertension Code(s): I10 - ESSENTIAL (PRIMARY) HYPERTENSION Status: Acute (3) Left acute arterial ischemic stroke, MCA (middle cerebral artery) Code(s): I63.512 - CEREB INFRC D/T UNSP OCCLS OR STENOS OF LEFT MID CEREB ART Status: Acute (4) Schizophrenia Code(s): F20.9 - SCHIZOPHRENIA, UNSPECIFIED Status: Acute - Plan Plan: Ischemic CVA of L MCA with midline shift S/P Alteplease 11/29 S/P Left hemicraniectomy, POD3 CVA likely 2/2 uncontrolled IDDM2 and coagulopathy-inc. Factor 8 Ativan & morphine PRN for agitation GCS8 ([id number])- If unimproved next week, plan for trach & PEG Repeat CT head today Neurogenic fever Rpt CXR clear, discontinued zosyn Supportive care Cervical soft tissue swelling Possible allergic reaction to zosyn, will d/c CT neck with contrast Benadryl Acute hypoxic respiratory failure requiring mechanical ventilation Spontaneous/CPAP Pulm following Morphine & ativan for agitation Hyperglycemia in IDDM2 A1c >14% Continue long acting insulin &SS Bipolar/Schizophrenia Stable, hold home meds to assess neuro status cHTN Home meds Dispo: Monitor neurologic status. Will need rehab [facility] [facility] [employer] pending clinical course Code: Full PCP: Peter-JUAN ALBERTO Addendum - Attending - Attending Attestation Date/Time: 12/05/19 [id number] I personally evaluated the patient and discussed the management with Dr. [] I agree with the History, Examination, Assessment and Plan documented above with any addition or exceptions noted below. CT showed spreading infarct with peticheal hemorrhages today. Will likely need trach and peg tube placed. Had had neck swelling but CT showed superficial tissue edema. Abx stopped. I do not think this is COVID related. Overall prognosis is guarded. Awaiting further recs from neuro.
[2019-12-05] MEDS ORDERED: Dexamethasone 4 mg/ml Vial SLOW IVP SCH (08:45)
[2019-12-05] MEDS ORDERED: Enoxaparin Sodium 40 MG/0.4 ML SYRINGE SC SCH (09:00)
[2019-12-05] MEDS: Aspirin 325 MG TAB PO SCH (09:03)
[2019-12-05] MEDS: Acetaminophen 650 MG/20.3 ML UDCUP PO PRN (09:03)
[2019-12-05] MEDS: Labetalol 100 MG TAB PO SCH ×2 (09:04→20:14)
[2019-12-05] MEDS: Famotidine/PF 20 mg/2ml Vial SLOW IVP SCH ×2 (09:04→20:14)
[2019-12-05] MEDS: cefTRIAXone\\ROCEPHIN 2 GM in Sodium Chloride 0.9% 100 ML IVPB SCH (09:10)
[2019-12-05] MEDS: Scopolamine 1.5 mg/72 hour Patch TD SCH (09:11)
--- NOTE | 2019-12-05 09:27 | PRG ---
DATE OF SERVICE: 12/05/2019 SUBJECTIVE: This morning, she got a copious amount of secretions. Temperature is being up to 100.9. She has some marked bilateral neck swelling, lip swelling, and scalp swelling. I do not see any obvious rash. She is just moving the left side. No movement on the right side. OBJECTIVE: CHEST: Anterior rhonchi. CARDIAC: Sinus tach. ABDOMEN: Soft. LABORATORY DATA: White count 12,000, H and H 9 and 27, platelet count normal. Lytes are normal. Urine is growing Streptococcus. X-rays otherwise pretty much unremarkable. ASSESSMENT/PLAN: 1. Febrile illness, sepsis versus postop massive CVA, right-sided weakness. 2. Bipolar disorder, hypertension. I am concerned about the facial swelling. It is unlikely reaction to the penicillin antibiotic, but this is going to be discontinued, which showed Rocephin empirically, dose of Decadron. She is probably going to need some imaging studies; neck and head. trach and PEG. One-half hour of critical time. We will follow. Job ID: [id number]
--- NOTE | 2019-12-05 09:43 | PRG ---
DATE OF SERVICE: 12/05/2019 The patient is now postoperative day #3, status post left-sided craniectomy for decompression. She remains stable in the ICU. She is still running a fever up to 101 last night. Her white count is trending down and is 12.9 today. On exam this morning, the patient does not open her eyes. Her pupils are equal and reactive with a left-sided gaze preference. She is localizing on the left-hand side with left upper and left lower extremity. She does have some withdrawal on the right. Her facial and scalp swelling on the left is slightly increased today, but her incision is otherwise clean, dry, and intact. Neurologically, the patient does seem to wax and wane sometimes, but she continues to localize well on the left-hand side. We will continue to monitor this closely. She is still running a fever; however, white blood cell count is trending downward. We will continue to monitor this closely and defer any medical needs to the Medicine and Pulmonary team. She will likely require a PEG and possibly trach in the near future and will require long-term rehab pending her clinical course. Job ID: [id number]
--- NOTE | 2019-12-05 09:54 | RAD ---
PORTABLE CHEST: INDICATION: CCU followup on ventilator. COMPARISON: 12/04/2019. FINDINGS: Lungs appear well aerated and clear of infiltrate. No interval change from 12/04/2019. IMPRESSION: Stable findings. POS: AGW
[2019-12-05] MEDS ORDERED: Iopamidol-370 76% 500 ML 1 ML ONE (10:36)
--- NOTE | 2019-12-05 12:38 | CT ---
CT BRAIN NONCONTRAST: DATE: 12/05/2019 11:44 AM HISTORY: 39-year-old female follow-up stroke COMPARISON: 12/02/2019 FINDINGS: There is a new large left frontotemporal parietal craniectomy defect, through which a large portion o f the left cerebral hemisphere involved by the cytotoxic edema of the acute infarction, has partially herniated externally. The large region of left frontotemporal cytotoxic edema has become la rger, and involves large portion of the left MCA territory. As previously demonstrated, it also involves the left external capsule and insula, and posterior limb of left internal capsule. It causes mass effect, severely effacing and narrowing the left lateral ventricle. The previously demonstrated left to right subfalcine herniation has improved, and is currently only approximately 1 or 2 mm [id number] midline shift. The right lateral ventricle continues to be narrowed. The previously demonstrated effacement of the ambient cistern has slightly improved. Prepontine cistern i s patent. There is no cerebellar tonsillar herniation. Left uncal herniation remains. Within the large left cerebral infarction, there are regions of mixed attenuation, some of which could represent extensive petechial hemorrhage.. IMPRESSION: 1) evolving, worsening large acute infarction involving majority of left middle cerebral artery dalia tory. 2) new left craniectomy accommodating the severe left cerebral brain swelling-edema, such that there has been interval improvement in the previously demonstrated severe mass effect. 3) possible extensive petechial hemorrhage involved with the large left cerebral infarction
[2019-12-05] MEDS ORDERED: diphenhydrAMINE 25 MG CAP PO SCH (13:00)
--- NOTE | 2019-12-05 13:01 | CT ---
CT neck soft tissues with contrast: 12/05/2019 HISTORY: 39-year-old female with increasing soft tissue swelling of the neck and face COMPARISON: CTA of neck of 11/30/2019 FINDINGS: Evolving large left MCA territory cerebral infarction with partial external herniation of edematous, infarcted left brain parenchyma through new left craniectomy defect. New finding of diffuse soft tissue edema throughout the subcutaneous fat of the face-lower head, almo st circumferentially. New endotracheal tube with distal tip at lower thoracic trachea, with tip 2.5 cm superior to prasanth. NG tube in esophagus. New significant partial opacification of all paranasal s inuses, including air-fluid levels in the maxillary, ethmoid, and sphenoid sinuses. This could be due to the intubated state. Likewise, complete effacement of the nasopharyngeal and oropharyngeal air way by fluid and soft tissue thickening of the pharyngeal mucosal spaces, could also be due to the intubated state. Skin janine at left scalp. Bilateral mastoid effusions. Soft tissue swelling causin g at least mild narrowing of the left external auditory canal. Mild diffuse edema in some of the deep spaces of the neck bilaterally. No abscess. No subcutaneous emphysema in the neck. IMPRESSION: 1. Diffuse edema throughout the superficial soft tissues, and to a lesser degree in some of the deep spaces, of the neck. The etiology is not evident on the CT. 2. Extensive partial opacification of paranasal sinuses, and effacement of oropharyngeal and nasophar yngeal airways, as often seen in intubated state. 3. No abscess identified.
--- NOTE | 2019-12-05 13:08 | PDOC.HOSPP ---
- Subjective Encounter Date: 12/05/19 Subjective: NEUROLOGY PROGRESS NOTE Patient very lethargic and somnolent. - Objective Vital Signs & Weight: Vital Signs (12 hours) Temp Pulse Pulse Pulse Resp BP BP 12/05/19 10:58 100 121/78 12/05/19 10:00 15 12/05/19 09:04 119 H 158/97 H 12/05/19 08:55 127 H 123 H 158/97 H 12/05/19 08:00 101.3 F H 14 12/05/19 06:00 21 H 12/05/19 04:00 99.8 F H 24 H 12/05/19 03:49 118 H 167/97 H 12/05/19 02:00 23 H BP 12/05/19 10:58 12/05/19 10:00 12/05/19 09:04 12/05/19 08:55 154/98 H 12/05/19 08:00 12/05/19 06:00 12/05/19 04:00 12/05/19 03:49 12/05/19 02:00 Weight Admit Weight 163 lb Weight 158 lb 15.253 oz Most Recent Monitor Data Heart Rate from ECG 126 NIBP 164/106 NIBP BP-Mean 125 Respiration from ECG 24 SpO2 100 I&O: 12/04/19 12/05/19 12/06/19 06:59 06:59 06:59 Intake Total 4382 4064 276 Output Total 785 1550 290 Balance 3597 2514 -14 Result Diagrams: 12/05/19 04:15 12/05/19 04:15 Additional Labs: Accuchecks 12/05/19 12/05/19 12/05/19 07:29 04:21 00:16 POC Glucose 124 H 216 H 137 H 12/04/19 12/04/19 12/04/19 20:52 18:08 16:25 POC Glucose 168 H 152 H 143 H 12/04/19 13:02 POC Glucose 241 H Radiology Reviewed by me: Yes EKG Reviewed by me: Yes Hospitalist ROS - Review of Systems ROS unobtainable: due to mental status - Medication Medications: Active Medications Generic Name Dose Route Start Last Admin Trade Name Freq PRN Reason Stop Dose Admin Acetaminophen 650 mg 12/04/19 06:30 12/05/19 09:03 Tylenol Elixir PO 650 mg Q4H PRN Administration Headache/Fever or Pain Aspirin 325 mg 12/05/19 09:00 12/05/19 09:03 Aspirin PO 325 mg DAILY JESSICA Administration Atorvastatin Calcium 40 mg 12/03/19 21:00 12/04/19 20:49 Lipitor PO 40 mg HS JESSICA Administration Famotidine 20 mg 12/02/19 21:00 12/05/19 09:04 Pepcid SLOW IVP 20 mg BID JESSICA Administration Hydralazine HCl 10 mg 11/30/19 23:24 12/04/19 01:40 Apresoline SLOW IVP 10 mg Q4H PRN Administration SBP <= 140 or DBP <= 105 Insulin Human Regular 100 101 mls @ 0 mls/hr 11/30/19 23:45 12/01/19 00:53 units/ Sodium Chloride IVPB 101 mls INF JESSICA Administration Protocol Titrate Potassium Chloride 40 meq/ 270 mls @ 135 mls/hr 11/30/19 23:45 12/03/19 06:33 Sodium Chloride IVPB 270 mls ASDIR PRN Administration FOR SERUM K+ 2.5 - 3.5 Insulin Glargine 20 units/ 0.2 mls @ 0 mls/hr 12/04/19 21:00 12/04/19 20:49 Miscellaneous Medication SC 0.2 mls HS JESSICA Administration As Directed Ceftriaxone Sodium 2 gm/ 100 mls @ 200 mls/hr 12/05/19 09:00 12/05/19 09:10 Sodium Chloride IVPB 100 mls 0900 JESSICA Administration Insulin Human Lispro 0 units 11/30/19 23:24 12/05/19 05:16 Humalog SC 4 unit .MODERATE SLIDING SC PRN Administration Moderate Correctional Scale Labetalol HCl 10 mg 11/30/19 23:24 12/04/19 01:17 Normodyne SLOW IVP 10 mg Q10MIN PRN Administration SBP <= 160 Labetalol HCl 200 mg 12/04/19 07:01 12/05/19 09:04 Normodyne PO 200 mg BID JESSICA Administration Lorazepam 1 mg 12/03/19 07:21 12/05/19 00:07 Ativan SLOW IVP 1 mg Q4H PRN Administration Agitation Morphine Sulfate 2 mg 12/02/19 15:06 12/04/19 00:32 Morphine SLOW IVP 2 mg Q4H PRN Administration PAIN/AGITATION Nifedipine 30 mg 12/03/19 09:00 12/03/19 08:22 Procardia Xl PO 30 mg DAILY JESSICA Administration Ondansetron HCl 4 mg 11/30/19 23:24 12/02/19 08:15 Zofran IVP 4 mg Q6H PRN Administration Nausea/Vomiting Potassium Chloride 40 meq 12/04/19 13:15 12/04/19 14:45 Klor-Con PO 40 meq ASDIR PRN Administration FOR SERUM K+ 2.5 - 3.5 Scopolamine 1.5 mg 12/05/19 09:00 12/05/19 09:11 Transderm Scop TD 1.5 mg Q3D JESSICA Administration Sodium Chloride 10 ml 12/01/19 09:00 12/05/19 09:14 Flush - Normal Saline IVF 10 ml Q12HR JESSICA Administration - Exam General Appearance: ill appearing Eye: PERRL ENT: normocephalic atraumatic Neck: supple Heart: RRR Respiratory: CTAB Gastrointestinal: soft Neurological: facial droop, hemiplegia Psychiatric: somnolent, lethargic Hosp A/P (1) Left acute arterial ischemic stroke, MCA (middle cerebral artery) Code(s): I63.512 - CEREB INFRC D/T UNSP OCCLS OR STENOS OF LEFT MID CEREB ART Status: Acute (2) DM hyperosmolarity type II Code(s): E11.00 - TYPE 2 DIAB W HYPROSM W/O NONKET HYPRGLY-HYPROS COMA ([facility]) Status: Acute (3) Hypertension Code(s): I10 - ESSENTIAL (PRIMARY) HYPERTENSION Status: Acute (4) Schizophrenia Code(s): F20.9 - SCHIZOPHRENIA, UNSPECIFIED Status: Acute - Plan 39 year old with acute CVA s/p decompressive hemicraniectomy due to large LMCA stroke. Right now intubated and mopre somnolent today. Stat NCHCT done which showed extensive petechial hemorrhage.. Hold off to AC at this time due to recent extensive petechial hemorrhage . Repeat HCT in AM to reassess.. Neurochecks every 2 hours. Stat NCHCT if neurological decline. EEG reviewed and was negative for seizure activity. BP control Stroke work up including MRI Brain and 2D echo when stable. Telemetry. Neurosurgery on board. PT/OT/Speech when stable. Continue medical management per primary team Plan discussed with the nursing staff and the resident.
[2019-12-05] MEDS ORDERED: Mannitol 12.5 GM/50 ML SLOW IVP SCH ×2 (14:45→22:00)
[2019-12-05] MEDS: Labetalol HCl 100 MG/20 ML VIAL SLOW IVP PRN (17:48)
[2019-12-05] MEDS: Atorvastatin Calcium 40 MG TAB PO SCH (20:14)
[2019-12-05] MEDS: Insulin Glargine 20 UNITS in Pre-Filled Syringe 1 EACH SC SCH (20:15)
[2019-12-06 00:28] LABS: Anion Gap 14 mmol/L (10-20); BUN (Urea Nitrogen) 13 mg/dL (7.0-18.7); Calc. Creatinine Clearance 107 mL/min (70-130); Calcium 9.1 mg/dL (7.8-10.44); Carbon Dioxide 23 mmol/L (22-29); Chloride 110 mmol/L (98-107); Estimated GFR-MDRD Greater than 90; Glucose 182 mg/dL (70-105); Potassium 3.9 mmol/L (3.5-5.1); Sodium 143 mmol/L (136-145)
[2019-12-06] MEDS: Mannitol 12.5 GM/50 ML SLOW IVP SCH ×3 (01:12→17:35)
[2019-12-06] MEDS: HumaLOG 300 UNITS/3 ML VIAL SC PRN ×5 (04:16→23:30)
--- NOTE | 2019-12-06 06:56 | PDOC.FM ---
- Subjective Subjective: No acute events over night. No new concerns from nursing. Pt unable to answer questions due to mental status - Objective MAR Reviewed: Yes Vital Signs & Weight: Vital Signs (12 hours) Temp Pulse Resp BP Pulse Ox 12/06/19 06:00 19 12/06/19 04:00 98.8 F 12 12/06/19 02:26 98 152/94 H 12/06/19 02:00 11 L 12/06/19 00:00 98.3 F 12 12/05/19 22:19 114 H 147/92 H 12/05/19 22:00 21 H 12/05/19 20:14 116 H 169/92 H 12/05/19 20:00 100.0 F H 22 H 100 Weight Admit Weight 73.936 kg Weight 70.8 kg Most Recent Monitor Data Heart Rate from ECG 102 NIBP 148/94 NIBP BP-Mean 112 Respiration from ECG 14 SpO2 100 I&O: 12/04/19 12/05/19 12/06/19 06:59 06:59 06:59 Intake Total 4382 4064 1710 Output Total 785 1550 4570 Balance 3597 5276 -6915 Result Diagrams: 12/05/19 04:15 12/05/19 23:56 Phys Exam - Physical Examination Non responsive to questions. HEENT: PERRLA, moist MMs Moderate anterior edema. No fluctuance. Respiratory: clear to auscultation bilateral Cardiovascular: RRR, no significant murmur Gastrointestinal: soft, no distention, positive bowel sounds Musculoskeletal: no edema, pulses present GCS8. Non purposeful movements of all four extremities Skin: no rash, normal turgor Deviation from normal: Craniotomy incision clean, does not appear infected Dx/Plan (1) Fever Code(s): R50.9 - FEVER, UNSPECIFIED Status: Acute (2) DM hyperosmolarity type II Code(s): E11.00 - TYPE 2 DIAB W HYPROSM W/O NONKET HYPRGLY-HYPROS COMA ([facility]) Status: Acute (3) Hypertension Code(s): I10 - ESSENTIAL (PRIMARY) HYPERTENSION Status: Acute (4) Left acute arterial ischemic stroke, MCA (middle cerebral artery) Code(s): I63.512 - CEREB INFRC D/T UNSP OCCLS OR STENOS OF LEFT MID CEREB ART Status: Acute (5) Respiratory failure with hypoxia Code(s): J96.91 - RESPIRATORY FAILURE, UNSPECIFIED WITH HYPOXIA Status: Acute - Plan Plan: 1. Ischemic CVA of L MCA with midline shift S/P Alteplease 11/29 S/P Left hemicraniectomy, POD3 CVA likely 2/2 uncontrolled IDDM2 and coagulopathy-inc. Factor 8 Pt appears to be stable at this time GCS8 is stable at - plan for trach and peg if unimproved over the next few days Repeat CT on 12/04 shows worsening CVA with petechial hemorrhage. Improved mass effect post craniotomy statin has been started 2. Neurogenic fever Supportive care, most recent fever was 20 hours ago 3. Cervical soft tissue swelling CT neck with contrast shows no clear source. Apparently stable swelling 4. Acute hypoxic respiratory failure requiring mechanical ventilation Spontaneous/CPAP Pulm following Morphine & ativan for agitation 5. Hyperglycemia in IDDM2 A1c >14% Continue long acting insulin &SS 6. Bipolar/Schizophrenia Stable, hold home meds to assess neuro status 7. cHTN Home meds Dispo: Pt is stable however penitentiary prognosis likely includes need for rehab penitentiary and LTAC placement Code: Full PCP: Jaret Addendum - Attending - Attending Attestation Date/Time: 12/06/19 2557 I personally evaluated the patient and discussed the management with . [] I agree with the History, Examination, Assessment and Plan documented above with any addition or exceptions noted below. Per nursing and family, patient was able to indicate she did not want Trach tube placed. Her mentation had waned by the time of my exam. Facial/tongue swelling still present and appears to be slightly worse. Etiology unclear. Continue supportive care. Awaiting additional specialist recs.
[2019-12-06] MEDS: Labetalol 100 MG TAB PO SCH ×2 (09:25→20:04)
[2019-12-06] MEDS: Aspirin 325 MG TAB PO SCH (09:25)
[2019-12-06] MEDS: Famotidine/PF 20 mg/2ml Vial SLOW IVP SCH ×2 (09:25→20:04)
[2019-12-06] MEDS: cefTRIAXone\\ROCEPHIN 2 GM in Sodium Chloride 0.9% 100 ML IVPB SCH (09:26)
[2019-12-06] MEDS: Morphine 2 MG/ML SYRINGE SLOW IVP PRN ×4 (09:26→21:49)
[2019-12-06 11:21] LABS: Anion Gap 12 mmol/L (10-20); BUN (Urea Nitrogen) 13 mg/dL (7.0-18.7); Calc. Creatinine Clearance 105 mL/min (70-130); Carbon Dioxide 25 mmol/L (22-29); Chloride 107 mmol/L (98-107); Estimated GFR-MDRD Greater than 90; Glucose 202 mg/dL (70-105); Potassium 3.4 mmol/L (3.5-5.1); Sodium 141 mmol/L (136-145)
--- NOTE | 2019-12-06 12:55 | EKG ---
Test Reason : Blood Pressure : / mmHG Vent. Rate : 085 BPM Atrial Rate : 085 BPM P-R Int : 140 ms QRS Dur : 086 ms QT Int : 410 ms P-R-T Axes : 063 033 032 degrees QTc Int : 487 ms Normal sinus rhythm Biatrial enlargement Prolonged QT Abnormal ECG Confirmed by JAQUELIN DISLA ([id number]), associate editor RUTH MAZARIEGOS ([id number]) on 12/06/2019 12:55:11 PM Referred By: Confirmed By:JAQUELIN Corrales
--- NOTE | 2019-12-06 14:49 | PDOC.HOSPP ---
- Subjective Encounter Date: 12/06/19 Subjective: NEUROLOGY PROGRESS NOTE No acute events overnight. - Objective Vital Signs & Weight: Vital Signs (12 hours) Temp Pulse Pulse Resp BP BP Pulse Ox 12/06/19 14:00 10 L 12/06/19 12:25 96 118/79 12/06/19 12:00 98.5 F 10 L 12/06/19 10:33 92 147/93 H 12/06/19 10:00 11 L 12/06/19 09:57 97 159/109 H 12/06/19 09:25 109 H 162/106 H 12/06/19 08:05 109 H 162/106 H 12/06/19 08:00 99.3 F 12 100 12/06/19 06:00 19 12/06/19 04:00 98.8 F 12 Pulse Ox 12/06/19 14:00 12/06/19 12:25 12/06/19 12:00 12/06/19 10:33 12/06/19 10:00 12/06/19 09:57 100 12/06/19 09:25 12/06/19 08:05 12/06/19 08:00 12/06/19 06:00 12/06/19 04:00 Weight Admit Weight 163 lb Weight 156 lb 1.396 oz Most Recent Monitor Data Heart Rate from ECG 101 NIBP 151/104 NIBP BP-Mean 119 Respiration from ECG 23 SpO2 100 I&O: 12/05/19 12/06/19 12/07/19 06:59 06:59 06:59 Intake Total 4064 1710 150 Output Total 1550 5230 610 Balance 2514 -2860 -460 Result Diagrams: 12/05/19 04:15 12/06/19 10:47 Additional Labs: Accuchecks 12/06/19 12/06/19 12/06/19 12:13 08:35 04:16 POC Glucose 195 H 201 H 234 H 12/06/19 12/05/19 12/05/19 00:05 20:21 17:25 POC Glucose 185 H 233 H 233 H Radiology Reviewed by me: Yes EKG Reviewed by me: Yes Hospitalist ROS - Review of Systems ROS unobtainable: due to mental status - Medication Medications: Active Medications Generic Name Dose Route Start Last Admin Trade Name Freq PRN Reason Stop Dose Admin Acetaminophen 650 mg 12/04/19 06:30 12/05/19 09:03 Tylenol Elixir PO 650 mg Q4H PRN Administration Headache/Fever or Pain Aspirin 325 mg 12/05/19 09:00 12/06/19 09:25 Aspirin PO 325 mg DAILY JESSICA Administration Atorvastatin Calcium 40 mg 12/03/19 21:00 12/05/19 20:14 Lipitor PO 40 mg HS JESSICA Administration Famotidine 20 mg 12/02/19 21:00 12/06/19 09:25 Pepcid SLOW IVP 20 mg BID JESSICA Administration Hydralazine HCl 10 mg 11/30/19 23:24 12/04/19 01:40 Apresoline SLOW IVP 10 mg Q4H PRN Administration SBP <= 140 or DBP <= 105 Insulin Human Regular 100 101 mls @ 0 mls/hr 11/30/19 23:45 12/01/19 00:53 units/ Sodium Chloride IVPB 101 mls INF JESSICA Administration Protocol Titrate Potassium Chloride 40 meq/ 270 mls @ 135 mls/hr 11/30/19 23:45 12/03/19 06:33 Sodium Chloride IVPB 270 mls ASDIR PRN Administration FOR SERUM K+ 2.5 - 3.5 Insulin Glargine 20 units/ 0.2 mls @ 0 mls/hr 12/04/19 21:00 12/05/19 20:15 Miscellaneous Medication SC 0.2 mls HS JESSICA Administration As Directed Ceftriaxone Sodium 2 gm/ 100 mls @ 200 mls/hr 12/05/19 09:00 12/06/19 09:26 Sodium Chloride IVPB 100 mls 0900 JESSICA Administration Insulin Human Lispro 0 units 11/30/19 23:24 12/06/19 10:15 Humalog SC 4 unit .MODERATE SLIDING SC PRN Administration Moderate Correctional Scale Labetalol HCl 10 mg 11/30/19 23:24 12/05/19 17:48 Normodyne SLOW IVP 10 mg Q10MIN PRN Administration SBP <= 160 Labetalol HCl 200 mg 12/04/19 07:01 12/06/19 09:25 Normodyne PO 200 mg BID JESSICA Administration Lorazepam 1 mg 12/03/19 07:21 12/05/19 00:07 Ativan SLOW IVP 1 mg Q4H PRN Administration Agitation Mannitol 25 gm 12/06/19 00:30 12/06/19 09:25 Mannitol SLOW IVP 25 gm 0030,0830,1630 JESSICA Administration Morphine Sulfate 2 mg 12/06/19 08:53 12/06/19 12:59 Morphine SLOW IVP 2 mg Q4H PRN Administration Mild-Moderate Pain (1-5) Nifedipine 30 mg 12/03/19 09:00 12/03/19 08:22 Procardia Xl PO 30 mg DAILY JESSICA Administration Ondansetron HCl 4 mg 11/30/19 23:24 12/02/19 08:15 Zofran IVP 4 mg Q6H PRN Administration Nausea/Vomiting Potassium Chloride 40 meq 12/04/19 13:15 12/04/19 14:45 Klor-Con PO 40 meq ASDIR PRN Administration FOR SERUM K+ 2.5 - 3.5 Scopolamine 1.5 mg 12/05/19 09:00 12/05/19 09:11 Transderm Scop TD 1.5 mg Q3D JESSICA Administration Sodium Chloride 10 ml 12/01/19 09:00 12/06/19 09:26 Flush - Normal Saline IVF 10 ml Q12HR JESSICA Administration - Exam General Appearance: ill appearing Eye: PERRL ENT: normocephalic atraumatic Neck: supple Heart: RRR Respiratory: CTAB Gastrointestinal: soft Extremities: no cyanosis Skin: normal turgor, no lesions Neurological: no new deficit, facial droop, hemiplegia Neurological - other findings: right facial droop, right hemipegia Psychiatric: not oriented, somnolent, lethargic Hosp A/P (1) Left acute arterial ischemic stroke, MCA (middle cerebral artery) Code(s): I63.512 - CEREB INFRC D/T UNSP OCCLS OR STENOS OF LEFT MID CEREB ART Status: Acute (2) DM hyperosmolarity type II Code(s): E11.00 - TYPE 2 DIAB W HYPROSM W/O NONKET HYPRGLY-HYPROS COMA ([facility]) Status: Acute (3) Hypertension Code(s): I10 - ESSENTIAL (PRIMARY) HYPERTENSION Status: Acute (4) Schizophrenia Code(s): F20.9 - SCHIZOPHRENIA, UNSPECIFIED Status: Acute - Plan 39 year old with acute CVA s/p decompressive hemicraniectomy due to large LMCA stroke. Right now intubated but seems clinically improved from yesterday. NCHCT done on 12/05/2019 showed extensive petechial hemorrhage.. Repeat HCT in AM to reassess.. Neurochecks every 2 hours. Stat NCHCT if neurological decline. EEG reviewed and was negative for seizure activity. BP control Continue asa and high intensity statin for secondary stroke prevention. Stroke work up including MRI Brain and 2D echo when stable. Telemetry. Neurosurgery on board. PT/OT/Speech when stable. Continue medical management per primary team Recommend PEG and tracheostomy if no improvement in next few days. Plan discussed with the nursing staff
[2019-12-06] MEDS: Lorazepam 2 MG/ML VIAL SLOW IVP PRN ×2 (16:31→19:55)
[2019-12-06 16:50] LABS: Anion Gap 12 mmol/L (10-20); BUN (Urea Nitrogen) 14 mg/dL (7.0-18.7); Calc. Creatinine Clearance 98 mL/min (70-130); Calcium 9.4 mg/dL (7.8-10.44); Carbon Dioxide 27 mmol/L (22-29); Chloride 108 mmol/L (98-107); Estimated GFR-MDRD 87; Glucose 254 mg/dL (70-105); Potassium 3.7 mmol/L (3.5-5.1); Sodium 143 mmol/L (136-145)
[2019-12-06] MEDS: Atorvastatin Calcium 40 MG TAB PO SCH (20:04)
[2019-12-06] MEDS: Insulin Glargine 20 UNITS in Pre-Filled Syringe 1 EACH SC SCH (20:04)
[2019-12-06 23:48] LABS: Anion Gap 13 mmol/L (10-20); BUN (Urea Nitrogen) 13 mg/dL (7.0-18.7); Calc. Creatinine Clearance 102 mL/min (70-130); Calcium 9.3 mg/dL (7.8-10.44); Carbon Dioxide 28 mmol/L (22-29); Chloride 107 mmol/L (98-107); Estimated GFR-MDRD Greater than 90; Glucose 195 mg/dL (70-105); Potassium 3.6 mmol/L (3.5-5.1); Sodium 144 mmol/L (136-145)
[2019-12-07] MEDS: Lorazepam 2 MG/ML VIAL SLOW IVP PRN ×4 (00:03→17:58)
[2019-12-07] MEDS: Mannitol 12.5 GM/50 ML SLOW IVP SCH ×3 (00:26→16:53)
--- NOTE | 2019-12-07 00:36 | PRG ---
DATE OF SERVICE: 12/06/2019 Ms. Jacome is on the 6th day of her hospital stay. Overnight temperature reached to maximum of 98.3. She according to the nursing staff has had rather encouraging exam. She has exhibited several purposeful movements including shaking her hand in a dismissive manner when Critical Care was discussing placement of PEG tube and tracheostomy. She also was able to manipulate and kick off the SCDs. She has had some increased movement in the right upper and right lower extremity, which is newer. She will follow commands with the left upper and left lower extremity and is breathing on her own though has ventilator support. She remains intubated. For me she is still rather drowsy and difficult to arouse likely secondary to increased stimulus this morning from several other physician visits and she also received some morphine. We will continue to follow along at this time. The patient is still resisting 25 g of mannitol q.8 hours and serum osmolalities were reached maximum so far of 305. Sodium 143. Job ID: [id number]
[2019-12-07] MEDS: Morphine 2 MG/ML SYRINGE SLOW IVP PRN ×5 (03:07→23:46)
[2019-12-07] MEDS: HumaLOG 300 UNITS/3 ML VIAL SC PRN ×4 (03:37→15:46)
--- NOTE | 2019-12-07 06:24 | PRG ---
DATE OF SERVICE: 12/06/2019 SUBJECTIVE: This morning, she remains in the ICU on the vent. OBJECTIVE: VITAL SIGNS: Temperature 98, pulse 109, blood pressure 162/106, saturations are 100%, respiratory rate 18. She has marked facial edema. She is still moving the left side only. CHEST: Rhonchi. CARDIAC: Normal S1, S2. No gallops. ABDOMEN: No masses. LABORATORY DATA: Unremarkable. Glucose 201. CT of her neck yesterday showed extensive a swelling edema posterior pharynx. CT head showed worsening swelling of shift. I have a concern she is not weanable at this stage to be taken off the vent on a trach collar. She was given some mannitol yesterday, the patient still on scopolamine patch. Still having a fair amount of secretions. IMPRESSION: 1. CVA with worsening neurologic status. 2. Marked edema posterior pharynx and neck, etiology unclear. 3. Hypertension. PLAN: She is day #6 on the vent. We will get General Surgery to do a trach and a PEG in the next several days. Otherwise, empiric antibiotics, supportive care, PT, eventual placement. One-half hour of critical time. Job ID: [id number]
--- NOTE | 2019-12-07 07:29 | PDOC.FM ---
- Subjective Subjective: Seen at bedside this morning. Pt is much more awake and interactive than previous exam. She will follow simple directions and per nursing indicate pain. Nursing concerned about multiple lose stools over night. These are not described as watery or malodorous - Objective MAR Reviewed: Yes Vital Signs & Weight: Vital Signs (12 hours) Temp Pulse Resp BP Pulse Ox 12/07/19 06:00 12 12/07/19 04:00 98.8 F 11 L 12/07/19 02:46 93 165/114 H 12/07/19 02:00 11 L 12/07/19 00:00 98.5 F 10 L 12/06/19 22:10 94 122/88 12/06/19 22:00 11 L 12/06/19 20:04 99 137/115 H 12/06/19 20:00 98.8 F 11 L 12/06/19 19:30 100 Weight Admit Weight 73.936 kg Weight 71.3 kg Most Recent Monitor Data Heart Rate from ECG 89 NIBP 139/91 NIBP BP-Mean 107 Respiration from ECG 12 SpO2 100 I&O: 12/06/19 12/07/19 12/08/19 06:59 06:59 06:59 Intake Total 1710 1316 Output Total 4570 1825 Balance -2860 -509 Result Diagrams: 12/05/19 04:15 12/07/19 07:55 Phys Exam - Physical Examination Intubated and at times agitated HEENT: PERRLA Incision on scalp clean and without purulence Swelling present and improved from previous exam Respiratory: clear to auscultation bilateral Cardiovascular: RRR, no significant murmur Gastrointestinal: soft, positive bowel sounds Musculoskeletal: no edema Does not move right arm or leg. Does not respond to pain on R arm or leg Deviation from normal: cannot evaluate Skin: no rash, normal turgor Dx/Plan (1) Fever Code(s): R50.9 - FEVER, UNSPECIFIED Status: Acute (2) DM hyperosmolarity type II Code(s): E11.00 - TYPE 2 DIAB W HYPROSM W/O NONKET HYPRGLY-HYPROS COMA ([facility]) Status: Acute (3) Hypertension Code(s): I10 - ESSENTIAL (PRIMARY) HYPERTENSION Status: Acute (4) Left acute arterial ischemic stroke, MCA (middle cerebral artery) Code(s): I63.512 - CEREB INFRC D/T UNSP OCCLS OR STENOS OF LEFT MID CEREB ART Status: Acute (5) Respiratory failure with hypoxia Code(s): J96.91 - RESPIRATORY FAILURE, UNSPECIFIED WITH HYPOXIA Status: Acute - Plan Plan: 1. Ischemic CVA of L MCA with midline shift S/P Alteplease 11/29 S/P Left hemicraniectomy CVA likely 2/2 uncontrolled IDDM2 and coagulopathy-inc. Factor 8 Pt continues to be stable and appears to be slightly improving day over day GCS 11t E4 V1t M6 - pt will likely need trach and peg for some period of time for rehab, however at this time pt indicates that she does not want this statin has been started neuro consulted, appreciate recommendations 2. Neurogenic fever, resolved 3. Cervical soft tissue swelling improved 4. Acute hypoxic respiratory failure requiring mechanical ventilation Spontaneous/CPAP Pulm following Morphine & ativan for agitation 5. Hyperglycemia in IDDM2 A1c >14% Continue long acting insulin &SS 6. Bipolar/Schizophrenia Stable, hold home meds to assess neuro status 7. 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 Aguilar. I agree with the History, Examination, Assessment and Plan documented above with any addition or exceptions noted below. She had been sedated for CT scan at time of my exam. Per nursing, resident, and family, patient has been able to move her left arm and leg and answer questions appropriately. I do not know if she is decisional at this time. Her mother (Annel ) is currently in hospital s/p CABG. I discussed with the family present today that given her current facial swelling and the overall severity of her CVA she will likely need a trach tube for airway protection at least in the immediate post acute phase of her recovery and will need PEG tube placement for nutrition. Family present stated she did not want either tube placed. I explained to family that unless she makes significant improvement in the next few days, w/o Trach/PEG she would not be able to survive. We will follow up with the decision for trach/peg placement later this week. Continue supportive care. Repeat CT today to re-evaluate CVA. No report at this time but it appears the herniation through her craniotomy is unchanged on prior exam and the area of infarct is stable.
[2019-12-07 08:16] LABS: Anion Gap 12 mmol/L (10-20); BUN (Urea Nitrogen) 13 mg/dL (7.0-18.7); Calc. Creatinine Clearance 108 mL/min (70-130); Calcium 9.3 mg/dL (7.8-10.44); Carbon Dioxide 29 mmol/L (22-29); Chloride 107 mmol/L (98-107); Estimated GFR-MDRD Greater than 90; Glucose 177 mg/dL (70-105); Potassium 3.6 mmol/L (3.5-5.1); Sodium 144 mmol/L (136-145)
[2019-12-07] MEDS: Labetalol 100 MG TAB PO SCH ×2 (08:33→21:20)
[2019-12-07] MEDS: Famotidine/PF 20 mg/2ml Vial SLOW IVP SCH ×2 (08:33→21:21)
[2019-12-07] MEDS: NIFEdipine XL 30 MG TAB PO SCH (08:33)
[2019-12-07] MEDS: Aspirin 325 MG TAB PO SCH (09:11)
--- NOTE | 2019-12-07 10:46 | PRG ---
DATE OF SERVICE: 12/07/2019 SUBJECTIVE: This morning, she is slightly more responsive. Facial swelling has decreased. OBJECTIVE: VITAL SIGNS: Pulse 92, blood pressure 102/68, respiratory rate 18. GENERAL: She has been given mannitol as per Neurology. I's and O's have been even. CHEST: Decreased breath sounds. No wheezing. CARDIAC: Normal S1 and S2. No gallops. ABDOMEN: No masses. ASSESSMENT: Status post tPA cerebrovascular accident with ensuing massive left-sided stroke to note she is left handed, secretions, aspiration pneumonia, fever. Facial swelling is somewhat better this morning on the CT. Otherwise, labs are unremarkable. PLAN: Continue CPAP trial with plan to consider extubation in the next 24 to 48 hours. The patient told the sister she did not want trach care. Appears she is very appropriate. Hopefully when she is extubated, she may be able to verbalize. Meantime, nutrition. Further more than likely she is going to need a PEG care and eventual long-term placement. Job ID: [id number]
[2019-12-07] MEDS: cefTRIAXone\\ROCEPHIN 2 GM in Sodium Chloride 0.9% 100 ML IVPB SCH (11:13)
--- NOTE | 2019-12-07 14:31 | CT ---
CT HEAD WITHOUT CONTRAST: Indications: Follow up stroke Comparison: 12-05-2019, 12-03-2019 FINDINGS: There is edema with mass effect from the previously described left middle cerebral artery infarct. Mi nimal midline shift at the septum pellucidum measuring in the 2 mm range. Petechial hemorrhage change s in the infarcted cortex is unchanged in appearance from 12-05-2019. No evidence of focal hemorrhage. IMPRESSION: No significant change in appearance from 12-05-2019. POS: AGW
[2019-12-07 16:04] LABS: Anion Gap 16 mmol/L (10-20); BUN (Urea Nitrogen) 13 mg/dL (7.0-18.7); Calc. Creatinine Clearance 107 mL/min (70-130); Calcium 8.5 mg/dL (7.8-10.44); Carbon Dioxide 25 mmol/L (22-29); Chloride 106 mmol/L (98-107); Estimated GFR-MDRD Greater than 90; Glucose 252 mg/dL (70-105); Potassium 4.2 mmol/L (3.5-5.1); Sodium 143 mmol/L (136-145)
[2019-12-07] MEDS: Atorvastatin Calcium 40 MG TAB PO SCH (21:20)
[2019-12-07] MEDS: Insulin Glargine 20 UNITS in Pre-Filled Syringe 1 EACH SC SCH (21:21)
[2019-12-08 01:17] LABS: Anion Gap 12 mmol/L (10-20); BUN (Urea Nitrogen) 12 mg/dL (7.0-18.7); Calc. Creatinine Clearance 108 mL/min (70-130); Calcium 9.4 mg/dL (7.8-10.44); Carbon Dioxide 31 mmol/L (22-29); Chloride 103 mmol/L (98-107); Estimated GFR-MDRD Greater than 90; Glucose 223 mg/dL (70-105); Sodium 142 mmol/L (136-145)
[2019-12-08] MEDS: Mannitol 12.5 GM/50 ML SLOW IVP SCH ×3 (01:36→17:01)
[2019-12-08] MEDS: Lorazepam 2 MG/ML VIAL SLOW IVP PRN ×2 (01:48→23:16)
[2019-12-08] MEDS: HumaLOG 300 UNITS/3 ML VIAL SC PRN ×2 (02:13→05:56)
[2019-12-08] MEDS ORDERED: HumaLOG 300 UNITS/3 ML VIAL SC PRN (07:18)
--- NOTE | 2019-12-08 07:24 | PDOC.FM ---
- Subjective Subjective: NAEO. Patient able to follow commands w/ left upper and lower extremity giving me a thumbs up and counting numbers. Not spontaneously opening eyes. No voluntary movement of right extremities. Cervical soft tissue swelling improved from a few days ago but oropharngeal swelling still significant. - Objective Vital Signs & Weight: Vital Signs (12 hours) Temp Pulse Resp BP Pulse Ox 12/08/19 04:00 99.5 F 17 12/08/19 02:06 104 H 156/103 H 12/08/19 02:00 12 12/08/19 00:00 99.3 F 14 12/07/19 22:00 100 12 129/86 12/07/19 21:20 105 H 155/99 H 12/07/19 20:00 99.7 F H 18 100 Weight Admit Weight 73.936 kg Weight 71 kg Most Recent Monitor Data Heart Rate from ECG 107 NIBP 135/91 NIBP BP-Mean 105 Respiration from ECG 18 SpO2 100 I&O: 12/07/19 12/08/19 12/09/19 06:59 06:59 06:59 Intake Total 1316 999 Output Total 1825 2240 Balance -509 -1241 Result Diagrams: 12/05/19 04:15 12/08/19 07:50 Phys Exam - Physical Examination Constitutional: NAD intubated HEENT: PERRLA, moist MMs Cardiovascular: no significant murmur tachycardic Musculoskeletal: no edema moves left upper and lower extremities Deviation from normal: unable to assess since intubated Dx/Plan (1) DM hyperosmolarity type II Code(s): E11.00 - TYPE 2 DIAB W HYPROSM W/O NONKET HYPRGLY-HYPROS COMA ([facility]) Status: Acute (2) Hypertension Code(s): I10 - ESSENTIAL (PRIMARY) HYPERTENSION Status: Acute (3) Left acute arterial ischemic stroke, MCA (middle cerebral artery) Code(s): I63.512 - CEREB INFRC D/T UNSP OCCLS OR STENOS OF LEFT MID CEREB ART Status: Acute (4) Schizophrenia Code(s): F20.9 - SCHIZOPHRENIA, UNSPECIFIED Status: Acute - Plan Plan: Ischemic CVA of L MCA with midline shift S/P Alteplease 11/29 S/P Left hemicraniectomy CVA likely 2/2 uncontrolled IDDM2 and coagulopathy-inc. Factor 8 Pt continues to be stable and appears to be slightly improving from my prior exam GCS 11t E4 V1t M6 - pt will likely need trach and peg for some period of time for rehab, however at this time pt indicates that she does not want this Statin & ASA Mannitol Neurology & neurosurg following, recs appreciated Neurogenic fever, resolved Cervical soft tissue swelling Improved, could pose issue to extbuation trial Acute hypoxic respiratory failure requiring mechanical ventilation Spontaneous/CPAP Pulm following Morphine & ativan for agitation Hyperglycemia in IDDM2 A1c >14% Inc to moderate sliding scale Glucose elevated from mannitol Bipolar/Schizophrenia Stable, hold home meds to assess neuro status cHTN Home meds Dispo: Pt is stable however correction prognosis likely includes need for rehab correction and LTAC placement Code: Full PCP: Jaret Addendum - Attending - Attending Attestation Date/Time: 12/08/19 3510 I personally evaluated the patient and discussed the management with Dr. Zambrano. I agree with the History, Examination, Assessment and Plan documented above with any addition or exceptions noted below. Patient overall stable. Working to extubate as she does not desire trach, however her upper airway and tongue edema is complicating this. Unknown cause of that at this time. Continue BP control. Continue mannitol with monitoring. Will need aggressive therapy once extubated.
[2019-12-08] MEDS: cefTRIAXone\\ROCEPHIN 2 GM in Sodium Chloride 0.9% 100 ML IVPB SCH (07:38)
[2019-12-08] MEDS: Famotidine/PF 20 mg/2ml Vial SLOW IVP SCH ×2 (07:38→20:56)
[2019-12-08] MEDS: Labetalol 100 MG TAB PO SCH ×2 (07:38→20:57)
[2019-12-08] MEDS: Aspirin 325 MG TAB PO SCH (07:38)
[2019-12-08] MEDS: Scopolamine 1.5 mg/72 hour Patch TD SCH (07:39)
[2019-12-08] MEDS: NIFEdipine XL 30 MG TAB PO SCH (07:39)
--- NOTE | 2019-12-08 08:24 | PRG ---
DATE OF SERVICE: 12/08/2019 The patient is now postoperative day #6, status post decompressive left-sided craniectomy for large MCA infarct with cerebral edema. She remains intubated. Pulmonology has discussed possible extubation as the patient has been quite adamant that she does not want a trach. She will likely require a PEG. Over the weekend, she has continued to receive mannitol 25 g q.8h. Her serum sodium and mannitol are tolerating, thus labs this morning show serum sodium of 142 and serum osmol of 302. On exam this morning, the patient opens her eyes weakly to stim. She is following commands on the left. Her incision is clean, dry, and intact. The patient continues to improve neurologically. She is adamant that she does not want a tracheostomy, but we will defer this to Pulmonology and Medicine. She will likely require a PEG placement sometime this week. Will require long-term care eventually. Job ID: [id number]
[2019-12-08 08:28] LABS: Anion Gap 12 mmol/L (10-20); Calcium 9.7 mg/dL (7.8-10.44); Carbon Dioxide 34 mmol/L (22-29); Chloride 101 mmol/L (98-107); Glucose 192 mg/dL (70-105); Potassium 3.7 mmol/L (3.5-5.1); Sodium 143 mmol/L (136-145)
--- NOTE | 2019-12-08 09:41 | PRG ---
DATE OF SERVICE: 12/08/2019 SUBJECTIVE: A 39-year-old female. OBJECTIVE: VITAL SIGNS: Respirations 13, blood pressure pulse rate of 80. GENERAL: She started feedings okay. CHEST: Decreased breath sounds. No wheezing. CARDIAC: Normal S1 and S2. No gallops. ABDOMEN: No masses. LABORATORY DATA: Unremarkable. ASSESSMENT: Respiratory failure, fever, status post craniotomy, status post tPA. PLAN: Continue supportive care, PT. May try and extubate in the next 24 to 48 hours. If she fails, she will need trach and discussed with the patient's family members today. One-half hour of critical care time. Job ID: [id number]
[2019-12-08 11:56] LABS: BUN (Urea Nitrogen) 14 mg/dL (7.0-18.7)
[2019-12-08 11:57] LABS: Calc. Creatinine Clearance 103 mL/min (70-130); Estimated GFR-MDRD Greater than 90
[2019-12-08] MEDS: Insulin Regular 300 UNITS/3 ML VIAL SC PRN (12:58)
--- NOTE | 2019-12-08 13:04 | PDOC.HOSPP ---
- Subjective Encounter Date: 12/08/19 Subjective: NEUROLOGY PROGRESS NOTE No acute events overnight. Follwing commands on the left. - Objective Vital Signs & Weight: Vital Signs (12 hours) Temp Pulse Resp BP 12/08/19 12:00 14 12/08/19 11:42 104 H 111/84 12/08/19 11:00 99.0 F 12/08/19 10:00 14 12/08/19 08:00 13 12/08/19 07:52 99.7 F H 12/08/19 07:33 112 H 117/81 12/08/19 06:00 16 12/08/19 04:00 99.5 F 17 12/08/19 02:06 104 H 156/103 H 12/08/19 02:00 12 Weight Admit Weight 163 lb Weight 156 lb 8.451 oz Most Recent Monitor Data Heart Rate from ECG 102 NIBP 151/97 NIBP BP-Mean 115 Respiration from ECG 20 SpO2 98 I&O: 12/07/19 12/08/19 12/09/19 06:59 06:59 06:59 Intake Total 1316 1822 340 Output Total 1825 2340 495 Balance -509 -518 -155 Result Diagrams: 12/05/19 04:15 12/08/19 07:50 Additional Labs: Accuchecks 12/08/19 12/07/19 12/07/19 04:25 20:56 15:47 POC Glucose 220 H 178 H 250 H Radiology Reviewed by me: Yes EKG Reviewed by me: Yes Hospitalist ROS - Review of Systems ROS unobtainable: due to mental status - Medication Medications: Active Medications Generic Name Dose Route Start Last Admin Trade Name Julio Cesarq PRN Reason Stop Dose Admin Acetaminophen 650 mg 12/04/19 06:30 12/05/19 09:03 Tylenol Elixir PO 650 mg Q4H PRN Administration Headache/Fever or Pain Aspirin 325 mg 12/05/19 09:00 12/08/19 07:38 Aspirin PO 325 mg DAILY JESSICA Administration Atorvastatin Calcium 40 mg 12/03/19 21:00 12/07/19 21:20 Lipitor PO 40 mg HS JESSICA Administration Famotidine 20 mg 12/02/19 21:00 12/08/19 07:38 Pepcid SLOW IVP 20 mg BID JESSICA Administration Hydralazine HCl 10 mg 11/30/19 23:24 12/04/19 01:40 Apresoline SLOW IVP 10 mg Q4H PRN Administration SBP <= 140 or DBP <= 105 Insulin Human Regular 100 101 mls @ 0 mls/hr 11/30/19 23:45 12/01/19 00:53 units/ Sodium Chloride IVPB 101 mls INF JESSICA Administration Protocol Titrate Potassium Chloride 40 meq/ 270 mls @ 135 mls/hr 11/30/19 23:45 12/03/19 06:33 Sodium Chloride IVPB 270 mls ASDIR PRN Administration FOR SERUM K+ 2.5 - 3.5 Insulin Glargine 20 units/ 0.2 mls @ 0 mls/hr 12/04/19 21:00 12/07/19 21:21 Miscellaneous Medication SC 0.2 mls HS JESSICA Administration As Directed Ceftriaxone Sodium 2 gm/ 100 mls @ 200 mls/hr 12/05/19 09:00 12/08/19 07:38 Sodium Chloride IVPB 100 mls 0900 JESSICA Administration Insulin Human Regular 0 units 12/08/19 07:16 12/08/19 12:58 Humulin R SC 9 unit .AGGRESSIVE SLIDING PRN Administration Aggressive Correctional Scale Labetalol HCl 10 mg 11/30/19 23:24 12/05/19 17:48 Normodyne SLOW IVP 10 mg Q10MIN PRN Administration SBP <= 160 Labetalol HCl 200 mg 12/04/19 07:01 12/08/19 07:38 Normodyne PO 200 mg BID JESSICA Administration Lorazepam 1 mg 12/03/19 07:21 12/08/19 01:48 Ativan SLOW IVP 1 mg Q4H PRN Administration Agitation Mannitol 25 gm 12/06/19 00:30 12/08/19 09:35 Mannitol SLOW IVP 25 gm 0030,0830,1630 JESSICA Administration Morphine Sulfate 2 mg 12/06/19 08:53 12/07/19 23:46 Morphine SLOW IVP 2 mg Q4H PRN Administration Mild-Moderate Pain (1-5) Nifedipine 30 mg 12/03/19 09:00 12/08/19 07:39 Procardia Xl PO Not Given DAILY JESSICA Ondansetron HCl 4 mg 11/30/19 23:24 12/02/19 08:15 Zofran IVP 4 mg Q6H PRN Administration Nausea/Vomiting Potassium Chloride 40 meq 12/04/19 13:15 12/04/19 14:45 Klor-Con PO 40 meq ASDIR PRN Administration FOR SERUM K+ 2.5 - 3.5 Scopolamine 1.5 mg 12/05/19 09:00 12/08/19 07:39 Transderm Scop TD 1.5 mg Q3D JESSICA Administration Sodium Chloride 10 ml 12/01/19 09:00 12/08/19 07:39 Flush - Normal Saline IVF 10 ml Q12HR JESSICA Administration - Exam General Appearance: ill appearing Eye: PERRL ENT: normocephalic atraumatic Neck: supple Heart: RRR Respiratory: CTAB Gastrointestinal: soft Extremities: no cyanosis Skin: normal turgor Neurological: facial droop, hemiplegia Neurological - other findings: right facial droop and hemiplegia Musculoskeletal: normal tone, no muscle wasting Psychiatric: not oriented, lethargic Hosp A/P (1) Left acute arterial ischemic stroke, MCA (middle cerebral artery) Code(s): I63.512 - CEREB INFRC D/T UNSP OCCLS OR STENOS OF LEFT MID CEREB ART Status: Acute (2) DM hyperosmolarity type II Code(s): E11.00 - TYPE 2 DIAB W HYPROSM W/O NONKET HYPRGLY-HYPROS COMA ([facility]) Status: Acute (3) Hypertension Code(s): I10 - ESSENTIAL (PRIMARY) HYPERTENSION Status: Acute (4) Schizophrenia Code(s): F20.9 - SCHIZOPHRENIA, UNSPECIFIED Status: Acute - Plan 39 year old with acute CVA s/p decompressive hemicraniectomy due to large LMCA stroke. Right now intubated but seems clinically improved and following commands on the left. Right side hemiplegic. Repeat NCHCT reviewed which showed stable findings and no change in the previously seen extensive petechial hemorrhage.. Neurochecks every 2 hours. Stat NCHCT if neurological decline. EEG reviewed and was negative for seizure activity. Continue strict BP and BG control Continue ASA and high intensity statin for secondary stroke prevention. Stroke work up including MRI Brain and 2D echo when stable. Telemetry. Neurosurgery on board. PT/OT/Speech when stable. Continue medical management per primary team Recommend PEG and tracheostomy if no improvement in next few days. Plan discussed with the nursing staff
[2019-12-08] MEDS: Morphine 2 MG/ML SYRINGE SLOW IVP PRN ×2 (14:55→20:57)
[2019-12-08] MEDS ORDERED: Amlodipine 5 MG TAB PO SCH (15:00)
[2019-12-08 16:29] LABS: Anion Gap 12 mmol/L (10-20); BUN (Urea Nitrogen) 13 mg/dL (7.0-18.7); Calc. Creatinine Clearance 105 mL/min (70-130); Calcium 9.5 mg/dL (7.8-10.44); Carbon Dioxide 34 mmol/L (22-29); Chloride 102 mmol/L (98-107); Estimated GFR-MDRD Greater than 90; Glucose 180 mg/dL (70-105); Potassium 4.2 mmol/L (3.5-5.1); Sodium 144 mmol/L (136-145)
[2019-12-08] MEDS: Atorvastatin Calcium 40 MG TAB PO SCH (20:57)
[2019-12-08] MEDS: Insulin Glargine 20 UNITS in Pre-Filled Syringe 1 EACH SC SCH (23:29)
[2019-12-08] MEDS ORDERED: Loperamide HCl 1 MG/7.5 ML UDCUP PO PRN (23:49)
[2019-12-08 23:51] LABS: Anion Gap 14 mmol/L (10-20); BUN (Urea Nitrogen) 13 mg/dL (7.0-18.7); Calc. Creatinine Clearance 107 mL/min (70-130); Calcium 9.6 mg/dL (7.8-10.44); Carbon Dioxide 31 mmol/L (22-29); Chloride 101 mmol/L (98-107); Estimated GFR-MDRD Greater than 90; Glucose 163 mg/dL (70-105); Potassium 3.7 mmol/L (3.5-5.1); Sodium 142 mmol/L (136-145)
[2019-12-09] MEDS: Mannitol 12.5 GM/50 ML SLOW IVP SCH (00:33)
[2019-12-09] MEDS: Morphine 2 MG/ML SYRINGE SLOW IVP PRN ×3 (02:10→16:07)
[2019-12-09] MEDS: Insulin Regular 300 UNITS/3 ML VIAL SC PRN ×4 (04:16→21:37)
[2019-12-09] MEDS: cefTRIAXone\\ROCEPHIN 2 GM in Sodium Chloride 0.9% 100 ML IVPB SCH (07:11)
[2019-12-09] MEDS: Amlodipine 5 MG TAB PO SCH (07:11)
[2019-12-09] MEDS: Labetalol 100 MG TAB PO SCH ×2 (07:11→21:30)
[2019-12-09] MEDS: Famotidine/PF 20 mg/2ml Vial SLOW IVP SCH ×2 (07:11→21:31)
[2019-12-09] MEDS: Aspirin 325 MG TAB PO SCH (07:12)
--- NOTE | 2019-12-09 07:12 | PDOC.FM ---
- Subjective Subjective: Yesterday was becoming apneic on ventilator, switched to SIMV. Loose BMs yesterday, one small/formed one overnight. Did require morphine x2 for agitation. Aside from this NAEO per nursing. Patient non verbal since intubated , unable to provide history. She is moving for me with spontaneous eye movement and responds to verbal command with left side. - Objective Vital Signs & Weight: Vital Signs (12 hours) Temp Pulse Resp BP Pulse Ox 12/09/19 06:56 112 H 130/87 12/09/19 06:00 17 12/09/19 04:00 99.5 F 16 12/09/19 02:36 105 H 129/87 12/09/19 02:00 18 12/09/19 00:00 100.1 F H 22 H 12/08/19 23:52 112 H 112/78 12/08/19 22:32 104 H 124/80 12/08/19 22:00 16 12/08/19 20:57 112 H 144/101 H 12/08/19 20:15 105 H 141/106 H 12/08/19 20:00 99.3 F 100 12/08/19 19:51 16 Weight Admit Weight 73.936 kg Weight 71 kg Most Recent Monitor Data Heart Rate from ECG 112 NIBP 144/102 NIBP BP-Mean 116 Respiration from ECG 21 SpO2 99 I&O: 12/08/19 12/09/19 12/10/19 06:59 06:59 06:59 Intake Total 1822 1481 Output Total 2340 1880 Balance -518 -399 Result Diagrams: 12/05/19 04:15 12/08/19 23:25 Phys Exam - Physical Examination Constitutional: NAD oroal swelling of lips and cervical soft tissue Respiratory: clear to auscultation bilateral tachycardic Gastrointestinal: soft, positive bowel sounds Musculoskeletal: no edema moves left side, responds to verbal command, withdraws to pain with right side Dx/Plan (1) DM hyperosmolarity type II Code(s): E11.00 - TYPE 2 DIAB W HYPROSM W/O NONKET HYPRGLY-HYPROS COMA ([facility]) Status: Acute (2) Hypertension Code(s): I10 - ESSENTIAL (PRIMARY) HYPERTENSION Status: Acute (3) Left acute arterial ischemic stroke, MCA (middle cerebral artery) Code(s): I63.512 - CEREB INFRC D/T UNSP OCCLS OR STENOS OF LEFT MID CEREB ART Status: Acute (4) Schizophrenia Code(s): F20.9 - SCHIZOPHRENIA, UNSPECIFIED Status: Acute - Plan Plan: Ischemic CVA of L MCA with midline shift S/P Alteplease 11/29 S/P Left hemicraniectomy -CVA likely 2/2 uncontrolled IDDM2 and coagulopathy-inc. Factor 8 -Pt continues to be stable in exam -GCS 11t E4 V1t M6 - pt will likely need trach and peg for some period of time for rehab. Oral swelling is potential problem with extubation trial. Will discuss with mother ad boyfriend -Statin & ASA -Mannitol with serum osm monitoring -Neurology & neurosurg following, recs appreciated Neurogenic fevers Cervical soft tissue swelling Improving Acute hypoxic respiratory failure requiring mechanical ventilation Spontaneous/CPAP trial today Pulm following Morphine & ativan for agitation Hyperglycemia in IDDM2 A1c >14% Inc to moderate sliding scale Glucose elevated from mannitol Bipolar/Schizophrenia Stable, hold home meds to assess neuro status cHTN Home meds Added amlodipine Dispo: Pt is stable however skilled nursing prognosis likely includes need for rehab skilled nursing and LTAC placement Code: Full PCP: Peter-JUAN ALBERTO Addendum - Attending - Attending Attestation Date/Time: 12/09/19 0915 I personally evaluated the patient and discussed the management with Dr. Zambrano. I agree with the History, Examination, Assessment and Plan documented above with any addition or exceptions noted below. Patient overall stable. Still has significant amounts of airway edema. Vent mgmt per Pulm. Needs continued discussions with MPOA regarding trach and PEG as she will likely need those interventions in the next few days. Continue BP control. Mannitol stopped, monitor mentation and electrolytes. Having low grade fever, likely neurogenic but will perform basic workup.
[2019-12-09] MEDS: Acetaminophen 650 MG/20.3 ML UDCUP PO PRN (07:19)
--- NOTE | 2019-12-09 07:22 | PRG ---
DATE OF SERVICE: 12/09/2019 The patient remains neurologically stable in the ICU. She has had no overnight events. She continues to receive mannitol q.8h. This morning, her serum osmol is 297 and her sodium is 142. She continues to have quite a bit of edema of the tongue. However, this seems to be slightly improved today. On exam, patient opens her eyes easily to voice. She is following commands on the left. No motor function is appreciated on the right. From neurosurgical status, she continues to improve. We will dc her mannitol and continue to follow along closely. Job ID: [id number] [facility]
--- NOTE | 2019-12-09 07:54 | RAD ---
CHEST 1 VIEW: INDICATION: History of intubation. COMPARISON: Prior exam dated 12/05/2019. IMPRESSION: The patient remains intubated with gastric catheter placement. The lungs are clear. No pleural effu annette or pneumothorax is evident. Heart size is accentuated by the exam technique. POS: BH
--- NOTE | 2019-12-09 09:03 | PRG ---
DATE OF SERVICE: 12/09/2019 SUBJECTIVE: This morning, she was sedated because of agitation, not responsive. OBJECTIVE: VITAL SIGNS: Respirations 20, sats 98%, temperature is 100.8, and blood pressure 130/88. CHEST: No wheezing or crackles. CARDIAC: Normal S1 and S2. No gallops. ABDOMEN: No masses. DIAGNOSTIC STUDIES: X-ray is clear. Lytes are normal. Bicarb is 31. ASSESSMENT AND PLAN: 1. Intracerebral CVA, status post tPA. 2. Cerebral edema. 3. Respiratory failure. 4. Baseline bipolar disorder. Try to avoid giving Ativan. Continue empiric antibiotics. Tongue is still relatively swollen. Reconsidering trach and a PEG in the next several days if the swelling does not go down and follow. One-half hour of critical care time. Job ID: [id number]
[2019-12-09 09:51] LABS: Hemoglobin 9.5 g/dL (12.0-16.0); Mean Corpuscular HGB CONC 32.6 g/dL (32.0-36.0); Mean Corpuscular Hemoglobin 31.4 pg (27.0-31.0); Mean Corpuscular Volume 96.3 fL (78.0-98.0); Mean Platelet Volume 9.9 fL (7.4-10.4); Platelet Count 371 thou/uL (130-400); RBC Distribution Width 12.2 % (11.5-14.5); Red Blood Cell (RBC) Count 3.02 mill/uL (4.20-5.40); White Blood Cell (WBC) Count 12.8 thou/uL (4.8-10.8)
[2019-12-09 11:10] LABS: Band 11 % (5-11); Eosinophils 1 % (0-10); Lymphocytes 20 % (21-51); MDiff Complete? YES; Monocytes 8 % (0-10); Neutrophil 59 % (42-75); Platelet Morphology Comment Appears Adequate; Polychromasia SLIGHT = 2-3 cells (100X) (0-2/hpf); Reactive Lymphocytes 1 % (0-10)
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
[2019-12-09] MEDS: Lorazepam 2 MG/ML VIAL SLOW IVP PRN ×2 (13:37→21:31)
[2019-12-09] MEDS ORDERED: Mannitol 12.5 GM/50 ML SLOW IVP ONE (14:49)
[2019-12-09] MEDS: risperiDONE 0.25 MG TAB PO SCH (21:30)
[2019-12-09] MEDS: Atorvastatin Calcium 40 MG TAB PO SCH (21:30)
[2019-12-09] MEDS: Insulin Glargine 20 UNITS in Pre-Filled Syringe 1 EACH SC SCH (21:34)
--- NOTE | 2019-12-09 21:41 | PQF ---
DATE: 12-09-19 ATTN: DR. JONNA MENDOZA Please exercise your independent, professional judgment in responding to the clarification form. Clinical indicators are provided on the bottom of this form for your review Please check appropriate box(s) to clarify if the following diagnosis has been ruled in or ruled out: SEPSIS [ ] Ruled in diagnosis [ ] Continue to treat [ ] Resolved [ x] Ruled out diagnosis [ ] Other diagnosis [ ] Unable to determine In addition, please specify: Present on Admission (POA): [ ] Yes [ x ] No [ ] Unable to determine For continuity of documentation, please document condition throughout progress notes and discharge summary. Thank You. CLINICAL INDICATORS - SIGNS / SYMPTOMS / LABS / RESULTS AND LOCATION IN MR: H&P 11-30-19: L ACUTE ARTERIAL ISCHEMIC STROKE, MCA S/P TPA ADMINISTRATION, HTN, DM HYPEROSMOLARITY TYPE 2, CONSULT NOTE DR. GARCES 12-05-19: FEBRILE ILLNESS, SEPSIS VERSUS POSTOP MASSIVE CVA, RIGHT SIDED WEAKNESS WBC: 12-02-19: 12.0 12-03-19: 16.1 12-04-19: 15.2 12-05-19: 12.9 12-09-19: 12.8 RISK FACTORS / RESULTS AND LOCATION IN MR: CONSULT NOTE DR. GARCES 12-07-19: S/P TPA CVA WITH ENSUING MASSIVE L SIDED STROKE TO NOTE SHE IS LEFT HANDED, SECRETIONS, ASPIRATION PNEUMONIA, FEVER. TREATMENTS / RESULTS AND LOCATION IN MR: MAR: 12-05-19: ROCEPHIN IV (This form is maintained as a part of the permanent medical record) 2014 [employer]. All Rights Reserved [email or web address]
[2019-12-09] MEDS: Doxepin HCl 25 MG CAP PO SCH (22:17)
[2019-12-10] MEDS: Insulin Regular 300 UNITS/3 ML VIAL SC PRN (00:43)
[2019-12-10] MEDS: Lorazepam 2 MG/ML VIAL SLOW IVP PRN (03:55)
--- NOTE | 2019-12-10 06:59 | PRG ---
DATE OF SERVICE: 12/10/2019 SUBJECTIVE: The patient remains neurologically stable in the ICU. Yesterday, we stopped her mannitol since she has had no neurologic changes since. She continues to have significant oral edema and this has made difficult to extubate. Pulmonary and Medicine Team are still considering timing of trach and PEG. OBJECTIVE: On exam this morning, the patient opens her eyes to stimulation and she was following commands on the left side. Her incision remained clean, dry, and intact. Neurologically, she remains stable and unchanged. Defer to Medicine and Pulmonary regarding trach and PEG. We will continue to follow along closely. Job ID: [id number]
--- NOTE | 2019-12-10 07:18 | PDOC.FM ---
- Subjective Subjective: NAEO per nurse. Patient intubate so no hx provided. Moving left side of body. Eyes open to stimulation. - Objective Vital Signs & Weight: Vital Signs (12 hours) Temp Pulse Resp BP Pulse Ox 12/10/19 06:00 20 12/10/19 04:00 20 12/10/19 02:31 115 H 130/87 12/10/19 02:00 14 12/10/19 00:12 111 H 126/81 12/10/19 00:00 16 12/09/19 22:00 22 H 12/09/19 21:59 117 H 119/99 H 12/09/19 21:30 112 H 143/89 H 12/09/19 20:00 98.7 F 22 H 100 Weight Admit Weight 73.936 kg Weight 70.4 kg Most Recent Monitor Data Heart Rate from ECG 110 NIBP 126/85 NIBP BP-Mean 98 Respiration from ECG 15 SpO2 99 I&O: 12/09/19 12/10/19 12/11/19 06:59 06:59 06:59 Intake Total 1481 1039 Output Total 1880 920 Balance -399 119 Result Diagrams: 12/09/19 09:11 12/08/19 23:25 Phys Exam - Physical Examination Constitutional: NAD intubated oral sewlling Respiratory: no wheezing, clear to auscultation bilateral Cardiovascular: no significant murmur tachycardic Gastrointestinal: soft, non-tender moves left extremities, withdraws to pain on right Dx/Plan (1) DM hyperosmolarity type II Code(s): E11.00 - TYPE 2 DIAB W HYPROSM W/O NONKET HYPRGLY-HYPROS COMA ([facility]) Status: Acute (2) Hypertension Code(s): I10 - ESSENTIAL (PRIMARY) HYPERTENSION Status: Acute (3) Left acute arterial ischemic stroke, MCA (middle cerebral artery) Code(s): I63.512 - CEREB INFRC D/T UNSP OCCLS OR STENOS OF LEFT MID CEREB ART Status: Acute (4) Schizophrenia Code(s): F20.9 - SCHIZOPHRENIA, UNSPECIFIED Status: Acute - Plan Plan: Ischemic CVA of L MCA with midline shift S/P Alteplease 11/29 S/P Left hemicraniectomy -CVA likely 2/2 uncontrolled IDDM2 and coagulopathy-inc. Factor 8 -Pt continues to be stable in exam -GCS 11t E4 V1t M6 - Due to unimproved oral swelling that could pose upper airway obstruction, discussed trach & PEG with mother, boyfriend who are all in agreement. Will consult general surgery today. -Statin & ASA -Neurology & neurosurg following, recs appreciated -Spontaneous/CPAP on ventilator. RSBI <105. Neurogenic fevers Cervical soft tissue swelling Improving Oral swelling Unimproved, etiology unknown Needs trach Acute hypoxic respiratory failure requiring mechanical ventilation Spontaneous/CPAP trial today Pulm following Morphine & ativan for agitation Hyperglycemia in IDDM2 A1c >14% Inc to moderate sliding scale Glucose elevated from mannitol Bipolar/Schizophrenia Stable, hold home meds to assess neuro status cHTN Home meds Added amlodipine Schizophrenia Home risperidone Dispo: Plan for trach & PEG with subsequent placement. Code: Full PCP: Jaret Addendum - Attending - Attending Attestation Date/Time: 12/10/19 1152 I personally evaluated the patient and discussed the management with Dr. Zambrano. I agree with the History, Examination, Assessment and Plan documented above with any addition or exceptions noted below. Patient overall stable. Weanable from the vent, but not able to extubate due to airway safety issues with her oropharyngeal swelling. It was figured out this morning that her cohn catheter has latex in it, so has been removed. She has also been given Benadryl and Decadron. Will see if this improves her edema. Otherwise, will need to proceed to trach/PEG in the coming days. Continue BP control.
[2019-12-10] MEDS ORDERED: diphenhydrAMINE 50 MG/ML VIAL IVP SCH (08:15)
[2019-12-10] MEDS: Dexamethasone 4 mg/ml Vial SLOW IVP SCH ×2 (08:49→21:41)
[2019-12-10] MEDS: Famotidine/PF 20 mg/2ml Vial SLOW IVP SCH ×2 (08:51→21:41)
[2019-12-10] MEDS: cefTRIAXone\\ROCEPHIN 2 GM in Sodium Chloride 0.9% 100 ML IVPB SCH (09:08)
[2019-12-10] MEDS: Amlodipine 5 MG TAB PO SCH (10:32)
[2019-12-10] MEDS: Aspirin 325 MG TAB PO SCH (10:33)
[2019-12-10] MEDS: Labetalol 100 MG TAB PO SCH ×2 (10:33→21:42)
--- NOTE | 2019-12-10 11:12 | PRG ---
DATE OF SERVICE: 12/10/2019 SUBJECTIVE: Her tongue still remains markedly swollen, sticking outside the mouth. OBJECTIVE: VITAL SIGNS: Pulse 102, blood pressure 142/100, maximum temperature has been 99. She is only moving her left side. CHEST: Decreased breath sounds. No wheezing. CARDIAC: Normal S1, S2. No gallops. ABDOMEN: No masses. LABORATORY DATA: White count 12,000, H and H 9 and 29. Glucose 129. ASSESSMENT: 1. Apparently, the patient has latex allergy. Her Barragan was removed which has latex. It is possible the endotracheal tube could be causing some swelling from possible latex allergy. 2. Cerebrovascular accident with right-sided hemiparesis, hypertension, bipolar. PLAN: Decadron for 24 to 48 hours. I am concerned about taking the tube out since the tongue is so large. She is probably going to need a trach and PEG. We plan to do it Sunday. Continue ICU observation, the vent, eventually placement. TIME SPENT: One-half hour of critical care time. Job ID: [id number]
[2019-12-10] MEDS: Morphine 2 MG/ML SYRINGE SLOW IVP PRN (14:31)
[2019-12-10] MEDS: Potassium Chloride 20 MEQ in Lactated Ringer's 1,000 ML IV SCH (16:40)
[2019-12-10 20:12] LABS: Activated Protein C Resistance 2.9 ratio (.)
[2019-12-10] MEDS: risperiDONE 0.25 MG TAB PO SCH (21:41)
[2019-12-10] MEDS: Doxepin HCl 25 MG CAP PO SCH (21:41)
[2019-12-10] MEDS: Atorvastatin Calcium 40 MG TAB PO SCH (21:41)
[2019-12-10] MEDS: Insulin Glargine 20 UNITS in Pre-Filled Syringe 1 EACH SC SCH (21:41)
[2019-12-11] MEDS: Morphine 2 MG/ML SYRINGE SLOW IVP PRN (04:16)
[2019-12-11] MEDS: Insulin Regular 300 UNITS/3 ML VIAL SC PRN ×4 (05:03→21:04)
[2019-12-11] MEDS: Potassium Chloride 20 MEQ in Lactated Ringer's 1,000 ML IV SCH (05:41)
--- NOTE | 2019-12-11 07:17 | PDOC.FM ---
- Subjective Subjective: In neuro chair. Agitated. Spontaneously opens eyes, able to respond to some verbal commands. Withdraws to pain on right side. Intubated so non verbal at this time. - Objective Vital Signs & Weight: Vital Signs (12 hours) Temp Pulse Resp BP Pulse Ox 12/11/19 06:57 116 H 140/100 H 12/11/19 06:00 22 H 12/11/19 04:00 98.9 F 20 12/11/19 02:18 100 120/83 12/11/19 02:00 23 H 12/11/19 00:38 103 H 124/89 12/11/19 00:00 98.7 F 17 12/10/19 22:27 103 H 116/82 12/10/19 22:00 16 12/10/19 21:42 104 H 120/82 12/10/19 20:00 98.4 F 18 99 Weight Admit Weight 73.936 kg Weight 70.4 kg Most Recent Monitor Data Heart Rate from ECG 124 NIBP 145/103 NIBP BP-Mean 117 Respiration from ECG 17 SpO2 100 I&O: 12/10/19 12/11/19 12/12/19 06:59 06:59 06:59 Intake Total 1039 1474 Output Total 920 180 Balance 119 1294 Result Diagrams: 12/09/19 09:11 12/08/19 23:25 Phys Exam - Physical Examination Constitutional: NAD HEENT: PERRLA, moist MMs, sclera anicteric oral swelling improved on right side Respiratory: clear to auscultation bilateral Cardiovascular: no significant murmur tachycardic Gastrointestinal: soft, non-tender Musculoskeletal: no edema moves left side, withdraws to pain on right Deviation from normal: unable to assess Dx/Plan (1) DM hyperosmolarity type II Code(s): E11.00 - TYPE 2 DIAB W HYPROSM W/O NONKET HYPRGLY-HYPROS COMA ([facility]) Status: Acute (2) Hypertension Code(s): I10 - ESSENTIAL (PRIMARY) HYPERTENSION Status: Acute (3) Left acute arterial ischemic stroke, MCA (middle cerebral artery) Code(s): I63.512 - CEREB INFRC D/T UNSP OCCLS OR STENOS OF LEFT MID CEREB ART Status: Acute (4) Schizophrenia Code(s): F20.9 - SCHIZOPHRENIA, UNSPECIFIED Status: Acute - Plan Plan: Ischemic CVA of L MCA with midline shift S/P Alteplease 11/29 S/P Left hemicraniectomy -CVA likely 2/2 uncontrolled IDDM2 and coagulopathy-inc. Factor 8 -Pt continues to be stable in exam -GCS 11t E4 V1t M6 - Due to unimproved oral swelling that could pose upper airway obstruction, discussed trach & PEG with mother, boyfriend who are all in agreement. Will consult general surgery today. -Statin & ASA -Neurology & neurosurg following, recs appreciated -Spontaneous/CPAP on ventilator. RSBI <105. Neurogenic fevers Cervical soft tissue swelling Improving Oral swelling Improved, continue benadryl and decadron If no major improvement today then plan for trach & PEG tmrw Resume tube feeds, hold at midnight Acute hypoxic respiratory failure requiring mechanical ventilation Spontaneous/CPAP trial today Pulm following Morphine & ativan for agitation Hyperglycemia in IDDM2 A1c >14% Inc to moderate sliding scale Glucose elevated from mannitol Bipolar/Schizophrenia Stable, hold home meds to assess neuro status cHTN Home meds Added amlodipine Schizophrenia Home risperidone and seroquel Dispo: Plan for trach & PEG with subsequent placement. Code: Full PCP: Peter-JUAN ALBERTO Addendum - Attending - Attending Attestation Date/Time: 12/11/19 8144 I personally evaluated the patient and discussed the management with Dr. Zambrano. I agree with the History, Examination, Assessment and Plan documented above with any addition or exceptions noted below. Patient overall stable. Some improvement in swelling. Still moving towards trach and PEG unless drastic improvement in her airway status. Pulm on board and managing vent. BP well controlled. Needs therapy once extubated.
--- NOTE | 2019-12-11 07:49 | PRG ---
DATE OF SERVICE: 12/11/2019 SUBJECTIVE: The patient remains stable neurologically on the ICU floor. It was discovered that her Barragan had latex and this was removed yesterday. She still has significant amount of oropharyngeal edema. This has been making hard to extubate her. OBJECTIVE: On exam this morning, her pupils are equal and reactive. She is moving the left side strongly and following commands. She opens her eyes easily on exam. Her incision is clean, dry, and intact. ASSESSMENT AND PLAN: Overall, her neurologic status remains stable. Hopefully , now that her Barragan has been removed, her oral edema will improve and she could be extubated. However, if this does not improve, it appears that there are plans to maybe do a trach and PEG on Sunday. Job ID: [id number] MTDD
[2019-12-11] MEDS: Famotidine/PF 20 mg/2ml Vial SLOW IVP SCH (08:03)
[2019-12-11] MEDS: Scopolamine 1.5 mg/72 hour Patch TD SCH (08:04)
[2019-12-11] MEDS: Aspirin 325 MG TAB PO SCH (08:16)
[2019-12-11] MEDS: Amlodipine 5 MG TAB PO SCH (08:16)
[2019-12-11] MEDS: Labetalol 100 MG TAB PO SCH ×2 (08:16→20:40)
[2019-12-11] MEDS: Dexamethasone 4 mg/ml Vial SLOW IVP SCH ×2 (08:35→20:41)
--- NOTE | 2019-12-11 09:40 | PRG ---
DATE OF SERVICE: 12/11/2019 SUBJECTIVE: This morning, tongue appears to be less swollen. OBJECTIVE: VITAL SIGNS: Pulse 116, blood pressure 142/100, respirations 18, and saturations 98%. CHEST: No wheezing or crackles. CARDIAC: Normal S1, S2. No gallops. ABDOMEN: No masses. ASSESSMENT: Apparently latex allergy, facial and neck swelling, improved. Rash in the groin area. Cerebrovascular accident. Hypertension. PLAN: We are going to give 24 hours to see whether she improves her facial swelling, we will consider extubation versus trach and a PEG. Continue vent support for the time being. One-half hour of critical care time. Job ID: [id number]
[2019-12-11] MEDS: Famotidine 20 MG TAB PO SCH (20:40)
[2019-12-11] MEDS: risperiDONE 0.25 MG TAB PO SCH (20:41)
[2019-12-11] MEDS: Doxepin HCl 25 MG CAP PO SCH (20:43)
[2019-12-11] MEDS: Atorvastatin Calcium 40 MG TAB PO SCH (20:43)
[2019-12-11] MEDS: Insulin Glargine 20 UNITS in Pre-Filled Syringe 1 EACH SC SCH (20:43)
[2019-12-11] MEDS: Lorazepam 2 MG/ML VIAL SLOW IVP PRN (20:43)
[2019-12-12] MEDS: Potassium Chloride 20 MEQ in Lactated Ringer's 1,000 ML IV SCH ×5 (00:35→21:01)
--- NOTE | 2019-12-12 07:23 | PDOC.FM ---
- Subjective Subjective: Agitated overnight, received 1mg ativan Otherwise, neuro exam unchanged. Oral swelling not improved since yesterday - Objective Vital Signs & Weight: Vital Signs (12 hours) Temp Pulse Resp BP Pulse Ox 12/12/19 07:06 102 H 167/98 H 12/12/19 06:00 15 12/12/19 04:00 98.8 F 27 H 12/12/19 02:19 97 133/93 H 12/12/19 02:00 16 12/12/19 00:00 98.6 F 17 12/11/19 22:17 103 H 135/89 12/11/19 22:00 18 12/11/19 20:40 102 H 128/84 12/11/19 20:00 98.9 F 18 100 Weight Admit Weight 73.936 kg Weight 69.853 kg Most Recent Monitor Data Heart Rate from ECG 102 NIBP 140/83 NIBP BP-Mean 102 Respiration from ECG 17 SpO2 99 I&O: 12/11/19 12/12/19 12/13/19 06:59 06:59 06:59 Intake Total 1474 2011 Output Total 180 104 Balance 1294 1908 Result Diagrams: 12/09/19 09:11 12/08/19 23:25 Phys Exam - Physical Examination Constitutional: NAD HEENT: PERRLA, moist MMs, sclera anicteric oral swelling predominant on left aspect of mouth Respiratory: no wheezing, clear to auscultation bilateral Cardiovascular: RRR, no significant murmur Gastrointestinal: soft, non-tender repsonds to verbal command on left, withdraws to pain on right Dx/Plan (1) DM hyperosmolarity type II Code(s): E11.00 - TYPE 2 DIAB W HYPROSM W/O NONKET HYPRGLY-HYPROS COMA ([facility]) Status: Acute (2) Hypertension Code(s): I10 - ESSENTIAL (PRIMARY) HYPERTENSION Status: Acute (3) Left acute arterial ischemic stroke, MCA (middle cerebral artery) Code(s): I63.512 - CEREB INFRC D/T UNSP OCCLS OR STENOS OF LEFT MID CEREB ART Status: Acute (4) Schizophrenia Code(s): F20.9 - SCHIZOPHRENIA, UNSPECIFIED Status: Acute - Plan Plan: Ischemic CVA of L MCA with midline shift S/P Alteplease 11/29 S/P Left hemicraniectomy -CVA likely 2/2 uncontrolled IDDM2 and coagulopathy-inc. Factor 8 -Pt continues to be stable in exam -GCS 11t E4 V1t M6 - Due to unimproved oral swelling that could pose upper airway obstruction, plan for trach & PEG today, will consult gen surg -Statin & ASA -Spontaneous/CPAP on ventilator. RSBI <105. Oral swelling Unresolved- continue benadryl and decadron Plan for trach & PEG today Hyperglycemia in IDDM2 A1c >14% Sliding scale Start diabetic PO meds once PEG tube placed Neurogenic fevers Cervical soft tissue swelling Improving Acute hypoxic respiratory failure requiring mechanical ventilation Spontaneous/CPAP trial today Pulm following Morphine & ativan for agitation Bipolar/Schizophrenia Stable, hold home meds to assess neuro status cHTN Home meds Added amlodipine Schizophrenia Home risperidone and seroquel Dispo: Plan for trach & PEG with subsequent placement. Code: Full PCP: Jaret Addendum - Attending - Attending Attestation Date/Time: 12/12/19 1252 I personally evaluated the patient and discussed the management with Dr. Zambrano. I agree with the History, Examination, Assessment and Plan documented above with any addition or exceptions noted below.
[2019-12-12] MEDS: Dexamethasone 4 mg/ml Vial SLOW IVP SCH (08:00)
[2019-12-12] MEDS: Labetalol 100 MG TAB PO SCH ×2 (08:01→21:02)
[2019-12-12] MEDS: Famotidine 20 MG TAB PO SCH ×2 (08:02→21:40)
[2019-12-12] MEDS: Amlodipine 5 MG TAB PO SCH (08:02)
--- NOTE | 2019-12-12 09:25 | PRG ---
DATE OF SERVICE: 12/12/2019 SUBJECTIVE: She remains in the ICU. Her tongue is still swollen, coming out of the mouth. She is agitated. She is not moving her right side, but banging the rails with left side. OBJECTIVE: VITAL SIGNS: Pulse 102, blood pressure 167/98, respiratory rate 20, and sats 98%. CHEST: Decreased breath sounds. No wheezing. CARDIAC: Normal S1 and S2. No gallops. ABDOMEN: Soft. ASSESSMENT: Massive cerebrovascular accident, status post tPA, diabetes, hypertension, bipolar disorder. Concern about taking the tube out today. We will continue supportive care. Maybe if the time gets better tomorrow, we can consider taking the tube out. One-half hour of critical status. Job ID: [id number]
[2019-12-12] MEDS ORDERED: CEFAZOLIN 2 GM in Premix Bag 1 BAG IVPB SCH (09:30)
--- NOTE | 2019-12-12 09:47 | PRG ---
DATE OF SERVICE: 12/12/2019 The patient has remained stable on the ICU floor. This morning, she is very interactive with the nursing staff and the family is also at the bedside. She had no overnight concerns. She continues to have some oropharyngeal edema and they are considerations for trach and PEG later today. On exam this morning, the patient is awake, alert. Her eyes are open. She is very strong and following commands on the left-hand side. She continues to have significant right-sided hemiparesis. Her incision is clean, dry, and intact. From a neurosurgical standpoint, the patient continues to improve. Her janine remain until 3 weeks postoperatively. They can be removed following 12/23/2019. We will consider replacement of the bone flap in a few months depending on the patient's progress. We will arrange followup on an outpatient basis. I have discussed this with the Primary Team and we will go ahead and sign off. Job ID: [id number]
[2019-12-12] MEDS ORDERED: Rocuronium Bromide 10 MG/ML (10ML VIAL) ONE (10:29)
--- NOTE | 2019-12-12 10:50 | CON ---
DATE OF CONSULTATION: CHIEF COMPLAINT: CVA with rectal dysphagia and respiratory failure, prolonged ventilatory support. HISTORY: The patient is a 39-year-old female, who was admitted on November 29 with a CVA. They thought that since she has had to have craniotomy and has been on the ventilator since. She is more awake, but they were unable to extubate her due to extensive perioral swelling and neck swelling. They asked me to place a PEG tube and tracheostomy tube. PAST MEDICAL HISTORY: Include diabetes, high blood pressure, schizophrenia, and bipolar. PAST SURGICAL HISTORY: section x2 and the recent craniotomy. SOCIAL HISTORY: No tobacco or alcohol. FAMILY HISTORY: Heart disease and hypertension. PHYSICAL EXAMINATION: VITAL SIGNS: Temperature is 98.6, pulse 102, and blood pressure 167/98. GENERAL: She is very lethargic, confused, but will obey commands. She has a healing craniotomy with janine. She has endotracheal tube in place. She has extensive perioral and tongue edema. NECK: Looks fine. Trachea is midline. LUNGS: Clear. ABDOMEN: Soft, nondistended, and nontender. EXTREMITIES: Unremarkable. LABORATORY DATA: Her white count is 12.8, H and H of 9.5 and 29, and platelet count 371. Her glucose is 238. Her electrolytes are fine. Her coags; PT is 13, INR 1, and PTT 27.5. Last chest x-ray was on the and it showed clear lungs. No pneumothorax or pleural effusion. ASSESSMENT: Dysphagia, prolonged ventilatory support needed. PLAN: Tracheostomy and esophagogastroduodenoscopy with percutaneous endoscopic gastrostomy placement. CONSENT: I have discussed planned procedure with her next to kin, her mother. She understands the risks of bleeding, infection, injury to bowel, loss of airway. She gives informed consent. Job ID: [id number]
[2019-12-12] MEDS ORDERED: Lidocaine 1% w/Epinephrine 1:100K 20 ML VIAL ONE (11:53)
[2019-12-12] MEDS ORDERED: Bupivacaine 0.25% HCL 30 ML VIAL ONE (11:53)
[2019-12-12] MEDS ORDERED: Midazolam HCl 2 mg/2 ml Vial ONE (11:59)
[2019-12-12] MEDS ORDERED: Fentanyl 100 MCG/2 ML VIAL ONE (11:59)
[2019-12-12] MEDS: Aspirin 325 MG TAB PO SCH (13:48)
--- NOTE | 2019-12-12 16:18 | OP ---
DATE OF PROCEDURE: 12/12/2019 PREOPERATIVE DIAGNOSES: Ventilatory dependence and malnutrition. PROCEDURES PERFORMED: Percutaneous endoscopic gastrostomy and open planned tracheostomy placement. INDICATIONS: A 39-year-old female, who had a CVA, who is ventilatory dependent for the last 2 weeks. It does not appear to be weanable at this time. FINDINGS: No complications with the PEG, an 8 Shiley low-pressure cuffed tracheostomy tube placed. DESCRIPTION OF PROCEDURE: After informed consent was obtained, the patient was taken to the operating room. She was already intubated with general anesthesia. Her abdomen was prepped and draped. The video endoscope was inserted transorally and the stomach was insufflated with air. Palpation revealed good location left subcostal. A local anesthesia infiltrated. An 11 blade was used to create a skin incision. The introducer needle was inserted transcutaneous into the stomach. The wire was advanced. This was grasped with a snare and brought out through the mouth. The wire was then connected to the tube and the tube was brought retrograde through the stomach and through the abdominal wall. The endoscope was readvanced and there was inspection in the stomach. There was no bleeding. It was seated properly. The securing flange was then placed over the tube. Occluding clip was then inserted, then the end cap was placed. Sterile bandage applied. Then, the patient was placed in reverse Trendelenburg position. Her neck was prepped and draped in usual fashion. Local anesthesia was infiltrated subcutaneously and deep. A transverse cervical incision performed approximately 2 cm above the sternal notch. Subcu divided sharply. The strap muscles were retracted laterally and the midline incised. There was a thyroid isthmus, which was divided sharply to expose the tracheal rings. Two 2-0 Prolene sutures were placed on either side and the trachea was then incised with an 11 blade. The tracheal orientation and mobility instructor was inserted and endotracheal tube was visualized. Endotracheal tube was removed by the sharepoint engineer and the #8 Shiley was inserted under direct vision. Then, the balloon inflated. The inner cannula inserted. It was connected via the racing adapter to the ventilator. There was good end-tidal CO2. Good breath sounds. Hemostasis was assured. The tracheostomy was secured with the trach collar. Sterile bandage applied. The patient tolerated the procedure well, transferred to ICU in serious, but stable condition. Job ID: [id number]
[2019-12-12] MEDS: Insulin Regular 300 UNITS/3 ML VIAL SC PRN (16:19)
[2019-12-12] MEDS: Morphine 2 MG/ML SYRINGE SLOW IVP PRN ×2 (17:08→22:53)
[2019-12-12] MEDS: Atorvastatin Calcium 40 MG TAB PO SCH (21:01)
[2019-12-12] MEDS: Doxepin HCl 25 MG CAP PO SCH (21:02)
[2019-12-12] MEDS: risperiDONE 0.25 MG TAB PO SCH (21:03)
[2019-12-12] MEDS: Insulin Glargine 24 UNITS in Pre-Filled Syringe 1 EACH SC SCH (21:37)
[2019-12-12] MEDS ORDERED: Famotidine/PF 20 mg/2ml Vial SLOW IVP SCH (21:45)
[2019-12-13] MEDS: Morphine 2 MG/ML SYRINGE SLOW IVP PRN ×2 (02:29→17:25)
--- NOTE | 2019-12-13 05:55 | PDOC.FM ---
- Subjective Subjective: Agitated overnight since unable to give PEG meds. No other events otherwise per nursing. Patient nonverbal but awake, alert. Able to follow verbal commands - Objective Vital Signs & Weight: Vital Signs (12 hours) Temp Pulse Resp BP Pulse Ox 12/13/19 04:00 98.0 F 10 L 12/13/19 02:48 100 12/13/19 02:47 83 104/86 12/13/19 02:00 13 12/13/19 00:00 97.9 F 12 12/12/19 22:20 84 110/82 12/12/19 22:00 10 L 12/12/19 20:00 97.7 F 11 L 100 12/12/19 18:48 89 116/82 12/12/19 18:00 15 Weight Admit Weight 73.936 kg Weight 69.1 kg Most Recent Monitor Data Heart Rate from ECG 81 NIBP 107/84 NIBP BP-Mean 91 Respiration from ECG 10 SpO2 100 I&O: 12/11/19 12/12/19 12/13/19 06:59 06:59 06:59 Intake Total 1474 2011 1016 Output Total 180 104 0 Balance 1294 1908 1016 Result Diagrams: 12/13/19 09:04 12/13/19 09:04 Phys Exam - Physical Examination Constitutional: NAD HEENT: PERRLA, moist MMs, sclera anicteric trach in place Cardiovascular: RRR, no significant murmur PEG in place covered by abdominal binder Musculoskeletal: no edema 5/5 motor in LUE and LLE, withdraws to pain in RUE and RLE gives thumbs up with LUE Dx/Plan (1) DM hyperosmolarity type II Code(s): E11.00 - TYPE 2 DIAB W HYPROSM W/O NONKET HYPRGLY-HYPROS COMA ([facility]) Status: Acute (2) Hypertension Code(s): I10 - ESSENTIAL (PRIMARY) HYPERTENSION Status: Acute (3) Left acute arterial ischemic stroke, MCA (middle cerebral artery) Code(s): I63.512 - CEREB INFRC D/T UNSP OCCLS OR STENOS OF LEFT MID CEREB ART Status: Acute (4) Schizophrenia Code(s): F20.9 - SCHIZOPHRENIA, UNSPECIFIED Status: Acute - Plan Plan: Ischemic CVA of L MCA with midline shift S/P Alteplease 11/29 S/P Left hemicraniectomy -CVA likely 2/2 uncontrolled IDDM2 and coagulopathy-inc. Factor 8 -Pt continues to be stable in exam -Statin & ASA -Spontaneous/CPAP on ventilator. RSBI <105. S/P Trach & PEG -On 12/12 -Gen surg on board Hyperglycemia in IDDM2 A1c >14% Sliding scale Start diabetic PO meds once PEG tube placed Neurogenic fevers Cervical soft tissue swelling Improving Acute hypoxic respiratory failure requiring mechanical ventilation Spontaneous/CPAP trial today Pulm following Morphine & ativan for agitation Bipolar/Schizophrenia Stable, hold home meds to assess neuro status cHTN Home meds Added amlodipine Schizophrenia Home risperidone and seroquel Dispo: s/p trach & PEG. Neuro status unchanged if not improved this AM. Working with CM for LTAC placement. Code: Full PCP: Jaret Addendum - Attending - Attending Attestation Date/Time: 12/13/19 1111 I personally evaluated the patient and discussed the management with Dr. Zambrano. I agree with the History, Examination, Assessment and Plan documented above with any addition or exceptions noted below. Patient now s/p trach and PEG status. Overall stable. Airway with some improvement in edema. Continue to wean vent requirement as tolerated, Pulm on board. She will need the usual post CVA care as well as CM for placement at LTAC likely.
[2019-12-13] MEDS: Lorazepam 2 MG/ML VIAL SLOW IVP PRN (06:37)
[2019-12-13] MEDS: Potassium Chloride 20 MEQ in Lactated Ringer's 1,000 ML IV SCH ×3 (06:38→11:55)
[2019-12-13] MEDS: Amlodipine 5 MG TAB PO SCH (08:43)
[2019-12-13] MEDS: Famotidine/PF 20 mg/2ml Vial SLOW IVP SCH ×2 (08:44→21:31)
[2019-12-13] MEDS: Aspirin 325 MG TAB PO SCH (08:44)
[2019-12-13] MEDS: Labetalol 100 MG TAB PO SCH ×2 (08:44→21:30)
[2019-12-13 09:49] LABS: #Lymphocytes 2.6 thou/uL (1.20-3.40); #Monocytes 1.4 thou/uL (0.11-0.59); #Neutrophils 11.7 thou/uL (1.40-6.50); %Basophils 0.1 % (0.0-1.0); %Eosinophils 0.2 % (0.0-10.0); %Lymphocytes 16.7 % (21.0-51.0); %Monocytes 8.7 % (0.0-10.0); %Neutrophils 74.4 % (42.0-75.0); Hemoglobin 8.7 g/dL (12.0-16.0); Mean Corpuscular HGB CONC 30.9 g/dL (32.0-36.0); Mean Corpuscular Hemoglobin 30.3 pg (27.0-31.0); Mean Corpuscular Volume 98.3 fL (78.0-98.0); Mean Platelet Volume 8.5 fL (7.4-10.4); Platelet Count 571 thou/uL (130-400); RBC Distribution Width 12.1 % (11.5-14.5); Red Blood Cell (RBC) Count 2.86 mill/uL (4.20-5.40); White Blood Cell (WBC) Count 15.7 thou/uL (4.8-10.8)
[2019-12-13 10:11] LABS: Anion Gap 13 mmol/L (10-20); BUN (Urea Nitrogen) 20 mg/dL (7.0-18.7); Calc. Creatinine Clearance 111 mL/min (70-130); Calcium 9.3 mg/dL (7.8-10.44); Carbon Dioxide 27 mmol/L (22-29); Chloride 104 mmol/L (98-107); Estimated GFR-MDRD Greater than 90; Glucose 66 mg/dL (70-105); Potassium 4.1 mmol/L (3.5-5.1); Sodium 140 mmol/L (136-145)
--- NOTE | 2019-12-13 12:27 | PRG ---
DATE OF SERVICE: 12/13/2019 SUBJECTIVE: Ms. Jacome had her trach and her PEG yesterday. She was in feeds today. She is on a trach collar. She is in no distress. OBJECTIVE: VITAL SIGNS: Respiratory rate is in the teens, heart rate is in 80s, blood pressure 114/75. HEENT: The staple line on her head is without erythema. NECK: Supple. LUNGS: Clear. HEART: Regular rhythm. ABDOMEN: Soft. EXTREMITIES: Without edema. LABORATORY DATA: White count 15.7, hemoglobin 8.7, and platelets 571. Electrolytes are normal. BUN 20 and creatinine 0.76. IMPRESSION: 1. Cerebrovascular accident. 2. Respiratory failure. 3. Status post tracheostomy and percutaneous endoscopic gastrostomy. 4. Status post tPA. 5. Diabetes. 6. Hypertension. 7. History of bipolar disorder. PLAN: Continue supportive care. It is unclear to me whether or not she is a candidate for an LTAC, but if she is, that would be the next step. Job ID: [id number]
[2019-12-13] MEDS: Atorvastatin Calcium 40 MG TAB PO SCH (21:30)
[2019-12-13] MEDS: risperiDONE 0.25 MG TAB PO SCH (21:30)
[2019-12-13] MEDS: Insulin Glargine 24 UNITS in Pre-Filled Syringe 1 EACH SC SCH (21:32)
[2019-12-13] MEDS: Doxepin HCl 25 MG CAP PO SCH (21:33)
[2019-12-14] MEDS: Morphine 2 MG/ML SYRINGE SLOW IVP PRN (03:05)
[2019-12-14 03:57] LABS: #Eosinphils 0.1 thou/uL (0.0-0.7); #Lymphocytes 1.7 thou/uL (1.20-3.40); #Monocytes 1.3 thou/uL (0.11-0.59); #Neutrophils 11.9 thou/uL (1.40-6.50); %Basophils 0.2 % (0.0-1.0); %Eosinophils 0.4 % (0.0-10.0); %Lymphocytes 11.5 % (21.0-51.0); %Monocytes 8.3 % (0.0-10.0); %Neutrophils 79.6 % (42.0-75.0); Hemoglobin 8.9 g/dL (12.0-16.0); Mean Corpuscular HGB CONC 32.7 g/dL (32.0-36.0); Mean Corpuscular Hemoglobin 31.8 pg (27.0-31.0); Mean Corpuscular Volume 97.1 fL (78.0-98.0); Mean Platelet Volume 8.6 fL (7.4-10.4); Platelet Count 518 thou/uL (130-400); RBC Distribution Width 11.9 % (11.5-14.5); Red Blood Cell (RBC) Count 2.82 mill/uL (4.20-5.40)
[2019-12-14 04:22] LABS: Anion Gap 15 mmol/L (10-20); BUN (Urea Nitrogen) 22 mg/dL (7.0-18.7); Calc. Creatinine Clearance 91 mL/min (70-130); Calcium 9.2 mg/dL (7.8-10.44); Carbon Dioxide 26 mmol/L (22-29); Chloride 101 mmol/L (98-107); Estimated GFR-MDRD 83; Glucose 222 mg/dL (70-105); Potassium 4.3 mmol/L (3.5-5.1); Sodium 138 mmol/L (136-145)
--- NOTE | 2019-12-14 05:46 | PDOC.FM ---
- Subjective Subjective: NAEO per nursing. Just had a dose of morphine b/c uncomfortable with trach so sleepy for my exam. Nursing reports improvement in mentations, she is able to point more, direct her wants/desires. - Objective Vital Signs & Weight: Vital Signs (12 hours) Temp Pulse BP Pulse Ox 12/14/19 05:00 98.6 F 12/13/19 23:58 98.8 F 12/13/19 21:30 107 H 113/77 12/13/19 20:00 98.7 F 100 Weight Admit Weight 73.936 kg Weight 68.2 kg Most Recent Monitor Data Heart Rate from ECG 110 NIBP 107/69 NIBP BP-Mean 81 Respiration from ECG 21 SpO2 100 I&O: 12/12/19 12/13/19 12/14/19 06:59 06:59 06:59 Intake Total 20110 1331 Output Total 104 0 4 Balance 8 2200 1327 Result Diagrams: 12/14/19 03:00 12/14/19 03:00 Phys Exam - Physical Examination Constitutional: NAD Respiratory: no wheezing, clear to auscultation bilateral Cardiovascular: RRR, no significant murmur Gastrointestinal: soft, non-tender Musculoskeletal: no edema unable to perform, patient had just received morphine Dx/Plan (1) DM hyperosmolarity type II Code(s): E11.00 - TYPE 2 DIAB W HYPROSM W/O NONKET HYPRGLY-HYPROS COMA ([facility]) Status: Acute (2) Hypertension Code(s): I10 - ESSENTIAL (PRIMARY) HYPERTENSION Status: Acute (3) Left acute arterial ischemic stroke, MCA (middle cerebral artery) Code(s): I63.512 - CEREB INFRC D/T UNSP OCCLS OR STENOS OF LEFT MID CEREB ART Status: Acute (4) Schizophrenia Code(s): F20.9 - SCHIZOPHRENIA, UNSPECIFIED Status: Acute - Plan Plan: Ischemic CVA of L MCA with midline shift S/P Alteplease 11/29 S/P Left hemicraniectomy -CVA likely 2/2 uncontrolled IDDM2 and coagulopathy-inc. Factor 8 -Pt continues to be stable in exam -Statin & ASA -Spontaneous/CPAP on ventilator. RSBI <105. S/P Trach & PEG -On 6/13 -Gen surg on board -Tube feeds resumed Hyperglycemia in IDDM2 A1c >14% Sliding scale Start diabetic PO meds once PEG tube placed Anemia -Hb stable Thrombocytosis -517, downtrending, likely reactive from surgery Neurogenic fevers Cervical soft tissue swelling Improving Acute hypoxic respiratory failure requiring mechanical ventilation Spontaneous/CPAP trial today Pulm following Morphine & ativan for agitation Bipolar/Schizophrenia Stable, hold home meds to assess neuro status cHTN Home meds Added amlodipine Schizophrenia Home risperidone and seroquel Dispo: s/p trach & PEG. Neuro status unchanged if not improved this AM. Working with CM for LTAC placement. Code: Full PCP: Jaret Addendum - Attending - Attending Attestation Date/Time: 12/14/19 1095 I personally evaluated the patient and discussed the management with Dr. Zambrano. I agree with the History, Examination, Assessment and Plan documented above with any addition or exceptions noted below. Patient now s/p trach and PEG after paraplegia and AMS from large ischemic CVA. She is now on t-collar and tolerating well. Airway edema seems improved. NSGY has signed off, will follow up outpatient regarding craniotomy. Neuro on board. Continue usual post CVA care. Will likely need LTAC. Continue therapy. Blood pressure and glucose near optimum control.
[2019-12-14] MEDS: Potassium Chloride 20 MEQ in Lactated Ringer's 1,000 ML IV SCH (05:54)
[2019-12-14] MEDS: Insulin Regular 300 UNITS/3 ML VIAL SC PRN ×2 (06:33→17:53)
[2019-12-14] MEDS: Aspirin 325 MG TAB PO SCH (09:45)
[2019-12-14] MEDS: Famotidine/PF 20 mg/2ml Vial SLOW IVP SCH ×2 (09:45→21:18)
[2019-12-14] MEDS: Scopolamine 1.5 mg/72 hour Patch TD SCH (09:45)
[2019-12-14] MEDS: Amlodipine 5 MG TAB PO SCH (09:45)
[2019-12-14] MEDS: Labetalol 100 MG TAB PO SCH ×2 (10:51→21:54)
--- NOTE | 2019-12-14 15:25 | PRG ---
DATE OF SERVICE: 12/14/2019 SUBJECTIVE: Ms. Jacome remains unchanged. She is doing well with a trach collar. OBJECTIVE: VITAL SIGNS: Blood pressure 132/91, heart rates in the 100 or slightly higher, respiratory rates in the teens. LUNGS: Clear. HEART: Regular rhythm. ABDOMEN: Soft. EXTREMITIES: Without edema or asymmetry. LABORATORY DATA: White count 15, hemoglobin 8.9, platelets 518. Electrolytes normal. BUN 22, creatinine 0.92. IMPRESSION: Devastating cerebrovascular accident. PLAN: Continue supportive care. LTAC evaluation. Job ID: [id number]
[2019-12-14] MEDS: Lorazepam 2 MG/ML VIAL SLOW IVP PRN (19:51)
[2019-12-14] MEDS: Doxepin HCl 25 MG CAP PO SCH (21:18)
[2019-12-14] MEDS: risperiDONE 0.25 MG TAB PO SCH (21:18)
[2019-12-14] MEDS: Atorvastatin Calcium 40 MG TAB PO SCH (21:18)
[2019-12-14] MEDS: Insulin Glargine 28 UNITS in Pre-Filled Syringe 1 EACH SC SCH (21:19)
[2019-12-14] MEDS ORDERED: Lactated Ringer's 1,000 ML IV SCH (21:30)
[2019-12-15] MEDS: Acetaminophen 650 MG/20.3 ML UDCUP PO PRN ×2 (00:16→21:48)
[2019-12-15 04:25] LABS: Band 12 % (5-11); Hemoglobin 7.3 g/dL (12.0-16.0); Lymphocytes 4 % (21-51); MDiff Complete? YES; Mean Corpuscular HGB CONC 32.1 g/dL (32.0-36.0); Mean Corpuscular Hemoglobin 31.2 pg (27.0-31.0); Mean Corpuscular Volume 97.1 fL (78.0-98.0); Mean Platelet Volume 8.3 fL (7.4-10.4); Monocytes 4 % (0-10); Neutrophil 80 % (42-75); Platelet Count 550 thou/uL (130-400); Platelet Morphology Comment Appears Increased; RBC Distribution Width 11.8 % (11.5-14.5); Red Blood Cell (RBC) Count 2.33 mill/uL (4.20-5.40); White Blood Cell (WBC) Count 23.3 thou/uL (4.8-10.8)
[2019-12-15 04:26] LABS: Anion Gap 12 mmol/L (10-20); BUN (Urea Nitrogen) 15 mg/dL (7.0-18.7); Calc. Creatinine Clearance 100 mL/min (70-130); Calcium 9.2 mg/dL (7.8-10.44); Carbon Dioxide 30 mmol/L (22-29); Chloride 102 mmol/L (98-107); Estimated GFR-MDRD Greater than 90; Glucose 98 mg/dL (70-105); Potassium 3.6 mmol/L (3.5-5.1); Sodium 140 mmol/L (136-145)
--- NOTE | 2019-12-15 06:34 | PDOC.FM ---
- Subjective Subjective: Overnight, patient's HR elevated to 130s/140s and vomiting x 1. She was given a liter bolus with subsequent reduced HR. Product Safety Engineer consult placed to help with tube feeds and possibly more free water. Patient also given ativan for agitation overnight. This morning, the patient was sleepy and not particularly cooperative. Per nursing, patient is at baseline overnight with mentation and physical exam. - Objective MAR Reviewed: Yes Vital Signs & Weight: Vital Signs (12 hours) Temp Pulse Ox 12/15/19 00:00 100.2 F H 12/14/19 20:00 100 12/14/19 19:00 99.5 F Weight Admit Weight 73.936 kg Weight 70.1 kg Most Recent Monitor Data Heart Rate from ECG 114 NIBP 117/73 NIBP BP-Mean 87 Respiration from ECG 17 SpO2 100 I&O: 12/13/19 12/14/19 12/15/19 06:59 06:59 06:59 Intake Total 2199 2014 2312 Output Total 0 4 350 Balance 2199 2010 1962 Result Diagrams: 12/15/19 03:24 12/15/19 03:24 Phys Exam - Physical Examination Constitutional: NAD HEENT: moist MMs Neck: supple Respiratory: no wheezing, no rales, no rhonchi, clear to auscultation bilateral Cardiovascular: no significant murmur, no rub sinus tachy Gastrointestinal: soft, non-tender, no distention, positive bowel sounds Musculoskeletal: no edema, pulses present Neuro: withdrawals to pain in RUE/LE, per nursing 5/5 strength in NADEEN/LE unable to fully assess due to mental state this AM Skin: no rash, normal turgor, cap refill <2 seconds Dx/Plan (1) Left acute arterial ischemic stroke, MCA (middle cerebral artery) Code(s): I63.512 - CEREB INFRC D/T UNSP OCCLS OR STENOS OF LEFT MID CEREB ART Status: Acute (2) Respiratory failure with hypoxia Code(s): J96.91 - RESPIRATORY FAILURE, UNSPECIFIED WITH HYPOXIA Status: Acute (3) DM hyperosmolarity type II Code(s): E11.00 - TYPE 2 DIAB W HYPROSM W/O NONKET HYPRGLY-HYPROS COMA ([facility]) Status: Resolved (4) Hypertension Code(s): I10 - ESSENTIAL (PRIMARY) HYPERTENSION Status: Acute (5) Schizophrenia Code(s): F20.9 - SCHIZOPHRENIA, UNSPECIFIED Status: Acute - Plan Plan: Ischemic CVA of L MCA with midline shift S/P Alteplease 11/29, left hemicraniectomy. 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 - Neuro surg has now signed off. Patient will be following up with them outpatient, consider replacing bone flap in a few months. - Statin & ASA - Trach collar, stable. Pulm consulted, appreciated recs. S/P Trach & PEG - On 12/12 - Gen surg on board - Tube feeds resumed. Product Safety Engineer consulted, appreciate recs. Hyperglycemia in IDDM2 A1c >14% on admission - Aggressive SS - On glargine 28u qHS, will titrate as necessary. Anemia - Hgb 7.3, dropped from yesterday. No blood in stool per nursing. Will continue to monitor. Iron, Vit B12 & Folate ordered. Leukocytosis - Central vs aspiration pneumonia. No fever. Procal pending. Will hold off on abx for now. Thrombocytosis likely reactive from surgery cHTN - Held labetalol on 12/13 due to normal/low BPs. Will continue labetolol today due to normal range BPs and elevated HR. Will hold amlodipine. Neurogenic fevers Cervical soft tissue swelling - Improving Acute hypoxic respiratory failure requiring mechanical ventilation - Pulm following, now on trach collar, satting well. - Morphine & ativan for agitation Bipolar/Schizophrenia - Stable, hold home meds to assess neuro status Schizophrenia - Home risperidone and seroquel Dispo: s/p trach & PEG. Neuro status unchanged if not improved this AM. Working with CM for LTAC placement. Code: Full PCP: Peter-JUAN ALBERTO Case discussed with Dr. Conte. Addendum - Attending - Attending Attestation Date/Time: 12/15/19 5588 I personally evaluated the patient and discussed the management with Dr. Canela I agree with the History, Examination, Assessment and Plan documented above with any addition or exceptions noted below - Patient up in neuro chair. Tm 100.2 VSS. A/P: 1) L MCA CVA - continue PT/OT/ST. Awaiting LTAC placement. 2) DM - continue current insulin regimen. 3) HTN- well controlled; continue home meds.
[2019-12-15 08:30] LABS: Iron 10 ug/dL (50-170); Iron Binding Capacity, Total 163 mcg/dL (265-497)
--- NOTE | 2019-12-15 09:06 | PRG ---
DATE OF SERVICE: 12/15/2019 SUBJECTIVE: Post-trach and PEG in the ICU. OBJECTIVE: VITAL SIGNS: Sats on 25% trach collar are 98%, blood pressure 110/80, respiratory rate 18, pulse 80. CHEST: No wheezing or crackles. CARDIAC: Normal S1, S2. No gallops. ABDOMEN: No masses. LABORATORY DATA: White count 23,000. Lytes are normal. IMPRESSION: Persistent leukocytosis, central versus aspiration pneumonia. PLAN: PT, supportive care, eventually placement. We will follow. Job ID: [id number]
[2019-12-15] MEDS: Aspirin 325 MG TAB PO SCH (09:15)
[2019-12-15] MEDS: Famotidine/PF 20 mg/2ml Vial SLOW IVP SCH ×2 (09:15→21:48)
[2019-12-15] MEDS: Labetalol 100 MG TAB PO SCH ×2 (09:15→21:47)
--- NOTE | 2019-12-15 10:00 | PRG ---
DATE OF SERVICE: 12/14/2019 TRANSITION OF CARE NOTE - November 29 - December 14, 2019 RESIDENT: Noemi Zambrano MD, PGY-2 BRIEF HOSPITAL COURSE: Rani Jacome is a 39-year-old female with uncontrolled diabetes and hypertension, who was found down and brought to the ER by her family. She was found to have a left MCA stroke. She received tPA and was admitted to the ICU. Due to decline in neurologic status, she had a CT head which showed worsening cerebral edema with an approximately 6 mm midline shift. She underwent urgent decompressive left hemicraniectomy with improvement in her neurologic status. She did have a repeat CT several days later that did show extensive petechial hemorrhage, thus anticoagulation is currently being held and being directed per Neurology. The patient has had difficulty with being extubated due to concern for protecting upper airway. She experienced significant oral mucosal edema shortly after intubation. This is thought to be due to her latex allergy from her [place]. Unfortunately, she did not respond to a trial of Decadron and steroids and thus a trach was placed. Due to her neurologic status and really inability to swallow, PEG tube was also placed. The patient's neurologic exam has improved slowly day by day and now she is to the point, where she is able to point and communicate her desires and wants on a stroke picture sheet. She remains aphasic, but has spontaneous eye movements and can follow command with the left side of her body. Unfortunately, the right side of body is completely paralyzed, but she can withdraw to pain. Based on the extent of her stroke, I imagine this patient will need several months of aggressive therapy. In regards to the reason for stroke, I believe it is a combination of her uncontrolled diabetes, for which she had an A1c of 14 in addition to her uncontrolled hypertension. Interestingly, her hypercoagulable panel did show an elevated factor VIII, which could also be contributing to an underlying hypercoagulable disorder. Should follow up with Heme/Onc to further work this up and discuss. There is still the question of whether or not the patient needs to be on long-term anticoagulation. We will discuss this with Neurology. Currently, we are waiting on LTAC acceptance and placement since the patient will need this. Now that her oropharyngeal edema is slowly improving, there is a possibility she may be able to have the trach removed in the near future. We will defer to General Surgery for this. The patient has great social support including three kids and a boyfriend and who all have been very involved. We plan to keep in touch with them as they have been updated throughout the process. Wish for all the best and hope her recovery goes well. If you have any further questions, feel free to contact Dr. Noemi Zambrano, [facility] residents. In regard to the patient's hypertension and glucose, her medications will be titrated for better control with recommended outpatient continued titration. Neurosurgery said that the bone flap will be replaced in about six months from now so important to follow up with them as well. Job ID: [id number]
--- NOTE | 2019-12-15 10:22 | RAD ---
PORTABLE CHEST 1 VIEW: Date: 12/15/2019 Time: 0907 hours HISTORY: Respiratory failure. Tracheostomy. FINDINGS/IMPRESSION: Comparison made with exam of 12/09/2019. Interval removal of the endotracheal and nasogastric tubes has occurred. A tracheostomy tube has been placed in the interim. The heart size is normal. The lungs are clear. No pneumothoraces or pleural e ffusions are seen. POS: [facility]
[2019-12-15 13:43] VITALS: BMI 26.5
[2019-12-15] MEDS: Insulin Regular 300 UNITS/3 ML VIAL SC PRN (15:55)
[2019-12-15] MEDS: risperiDONE 0.25 MG TAB PO SCH (21:47)
[2019-12-15] MEDS: Atorvastatin Calcium 40 MG TAB PO SCH (21:47)
[2019-12-15] MEDS: Doxepin HCl 25 MG CAP PO SCH (21:47)
[2019-12-15] MEDS: Insulin Glargine 28 UNITS in Pre-Filled Syringe 1 EACH SC SCH (22:27)
[2019-12-16] MEDS: Acetaminophen 650 MG/20.3 ML UDCUP PO PRN ×2 (01:58→15:31)
[2019-12-16] MEDS: Insulin Regular 300 UNITS/3 ML VIAL SC PRN ×3 (01:59→15:39)
[2019-12-16] MEDS ORDERED: Metoclopramide 10 MG/10 ML UDCUP PO SCH ×2 (03:00→09:00)
[2019-12-16 03:26] LABS: #Eosinphils 0.1 thou/uL (0.0-0.7); #Lymphocytes 2.3 thou/uL (1.20-3.40); #Monocytes 1.3 thou/uL (0.11-0.59); #Neutrophils 21.2 thou/uL (1.40-6.50); %Basophils 0.2 % (0.0-1.0); %Eosinophils 0.2 % (0.0-10.0); %Lymphocytes 9.3 % (21.0-51.0); %Monocytes 5.2 % (0.0-10.0); %Neutrophils 85.1 % (42.0-75.0); Hemoglobin 9.1 g/dL (12.0-16.0); Mean Corpuscular HGB CONC 32.1 g/dL (32.0-36.0); Mean Corpuscular Hemoglobin 31.7 pg (27.0-31.0); Mean Corpuscular Volume 98.6 fL (78.0-98.0); Mean Platelet Volume 8.1 fL (7.4-10.4); Platelet Count 531 thou/uL (130-400); RBC Distribution Width 12.1 % (11.5-14.5); Red Blood Cell (RBC) Count 2.88 mill/uL (4.20-5.40); White Blood Cell (WBC) Count 24.9 thou/uL (4.8-10.8)
[2019-12-16 03:44] LABS: Anion Gap 16 mmol/L (10-20); BUN (Urea Nitrogen) 19 mg/dL (7.0-18.7); Calc. Creatinine Clearance 80 mL/min (70-130); Calcium 9.4 mg/dL (7.8-10.44); Carbon Dioxide 25 mmol/L (22-29); Chloride 101 mmol/L (98-107); Estimated GFR-MDRD 70; Glucose 177 mg/dL (70-105); Potassium 4.2 mmol/L (3.5-5.1); Sodium 138 mmol/L (136-145)
--- NOTE | 2019-12-16 06:35 | PDOC.FM ---
- Subjective Subjective: Overnight, patient fevered to 102.1F and threw up around her trach. The feeds were held after this and then restarted at a lower rate. Given tylenol with reduction of fever. No more episodes of vomiting overnight. This morning, patient resting comfortably in bed. No distress noted. Patient very lethargic on exam, not very cooperative. Responds to pain, but is not verbal, and does not open eyes. Per nursing, she has been at her baseline. No other episodes of vomiting. - Objective MAR Reviewed: Yes Vital Signs & Weight: Vital Signs (12 hours) Temp Pulse BP Pulse Ox 12/16/19 03:45 99.5 F 12/15/19 23:39 102.1 F H 12/15/19 21:47 130 H 125/88 12/15/19 20:00 100 12/15/19 19:38 102.1 F H Weight Admit Weight 73.936 kg Weight 70.845 kg Most Recent Monitor Data Heart Rate from ECG 109 NIBP 100/65 NIBP BP-Mean 76 Respiration from ECG 25 SpO2 100 I&O: 12/14/19 12/15/19 12/16/19 06:59 06:59 06:59 Intake Total 2014 2313 1265 Output Total 4 350 400 Balance 2010 1962 865 Result Diagrams: 12/16/19 02:59 12/16/19 02:59 Phys Exam - Physical Examination Constitutional: NAD HEENT: moist MMs Respiratory: no wheezing, no rales, no rhonchi, clear to auscultation bilateral Cardiovascular: RRR, no significant murmur, no rub Gastrointestinal: soft Musculoskeletal: no edema Neuro: responds to pain in RUE/LE; strength 3/5 in LUE/LE, unable to fully access due to lethargy Skin: no rash, normal turgor, cap refill <2 seconds Dx/Plan (1) Left acute arterial ischemic stroke, MCA (middle cerebral artery) Code(s): I63.512 - CEREB INFRC D/T UNSP OCCLS OR STENOS OF LEFT MID CEREB ART Status: Acute (2) Respiratory failure with hypoxia Code(s): J96.91 - RESPIRATORY FAILURE, UNSPECIFIED WITH HYPOXIA Status: Acute (3) DM hyperosmolarity type II Code(s): E11.00 - TYPE 2 DIAB W HYPROSM W/O NONKET HYPRGLY-HYPROS COMA ([facility]) Status: Resolved (4) Hypertension Code(s): I10 - ESSENTIAL (PRIMARY) HYPERTENSION Status: Acute (5) Schizophrenia Code(s): F20.9 - SCHIZOPHRENIA, UNSPECIFIED Status: Acute - Plan Plan: Ischemic CVA of L MCA with midline shift S/P Alteplease 11/29, left hemicraniectomy. 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 - Neuro surg has now signed off. Patient will be following up with them outpatient, consider replacing bone flap in a few months. - Patient working with PT, getting up in neuro chair daily - Statin & ASA - Trach collar, stable. Satting well. Pulm consulted, appreciated recs. S/P Trach & PEG - On 12/12 - Gen surg on board - Tube feeds resumed. Astrobiologist consulted, appreciate recs. New recommendation for feeds - continuous rate 80ml/hr, glucerna 1.2, increase flushes to 75ml every 4 hrs. Decreased rate overnight due to vomiting. Will continue to work with relief pilot to improve. Reglan added to regimen to help with this as well due to residuals. Neurogenic fevers - Patient fevered overnight on 12/14 to 102F. Came down with tylenol. Infection source - possible aspiration PNA vs urine/blood. Will order UA, Urine and blood cx. Procal 0.13 -> 0.29. WBC uptrending as well. - Will go ahead and start empiric abx with vanc and cefepime. Notified neurosurg of fever so they are aware. Will continue to monitor and f/u cultures. cHTN - Held labetalol on 12/13 due to normal/low BPs. Will continue labetolol due to normal range BPs and elevated HR. Will hold amlodipine. Hyperglycemia in IDDM2 A1c >14% on admission - Aggressive SS - On glargine 28u qHS, will titrate as necessary. Goal BG around 180. Anemia - Hgb 9 today. Will continue to monitor. Iron studies showed low iron. Will start iron per tube. Vit B12 and folate normal. Leukocytosis - Central vs aspiration pneumonia. Procal 0.13, will trend. Will hold off on abx for now. Thrombocytosis likely reactive from surgery Cervical soft tissue swelling - Improving Acute hypoxic respiratory failure requiring mechanical ventilation - Pulm following, now on trach collar, satting well. - Morphine & ativan for agitation Bipolar/Schizophrenia - Stable, hold home meds to assess neuro status Schizophrenia - Home risperidone and seroquel Dispo: s/p trach & PEG. Neuro status unchanged if not improved this AM. Working with CM for LTAC placement. Code: Full PCP: Peter-JUAN ALBERTO Case discussed with Dr. Conte. Addendum - Attending - Attending Attestation Date/Time: 12/16/19 [id number] I personally evaluated the patient and discussed the management with Dr. Canela I agree with the History, Examination, Assessment and Plan documented above with any addition or exceptions noted below - Patient receiving bath.Tm 102 P110 BP125/88 A/P: 1) L MCA CVA - continue PT/ST/OT; awaiting LTAC placement. 2) SIRS - fever, tachycardia and elevated WBC- possibly neurogenic fever versus infectious cause; will obtain blood and urin culture; discuss with neurosurgery and start empiric abx. 3) DM- stable; continue current meds. 4) HTN- stable.
[2019-12-16] MEDS ORDERED: Metoclopramide HCl 10 MG/2 ML VIAL IVP PRN (06:45)
[2019-12-16] MEDS ORDERED: Iron Polysaccharides Complex 150 MG CAP PO SCH (08:00)
[2019-12-16] MEDS: Amlodipine 5 MG TAB PO SCH (08:13)
[2019-12-16] MEDS: Famotidine/PF 20 mg/2ml Vial SLOW IVP SCH (08:13)
[2019-12-16] MEDS: Aspirin 325 MG TAB PO SCH (08:13)
[2019-12-16] MEDS: Labetalol 100 MG TAB PO SCH (08:13)
--- NOTE | 2019-12-16 10:11 | PRG ---
DATE OF SERVICE: 12/16/2019 SUBJECTIVE: This morning, she is lethargic. OBJECTIVE: VITAL SIGNS: Temperature is 102 maximum, pulse 116, blood pressure 101/67, respirations 18. CHEST: No wheezing or crackles. CARDIAC: Normal S1 and S2. No gallops. LABORATORY DATA: White count 24,000, H and H are 9 and 28, platelet count 531. ASSESSMENT AND PLAN: Persistent fever, status post cerebrovascular accident left-sided with right-sided hemiparesis, status post tPA ,with underlying bipolar disorder. Schizophrenia, persistent vomiting. We will start pt //placement,reculture/???. We will follow. Job ID: [id number] MTDD
[2019-12-16] MEDS ORDERED: Vancomycin 1 GM in Premix Bag 1 BAG IVPB SCH (11:00)
[2019-12-16 11:27] VITALS: BP 101/67
[2019-12-16] MEDS ORDERED: Cefepime 2 GM in Sodium Chloride 0.9% 100 ML IVPB SCH (14:00)
[2019-12-16 15:21] LABS: RBC/HPF 0-3 HPF (0-3); Squamous Epithelial 0-3 HPF (0-3)
[2019-12-16 15:27] LABS: Bacteria/HPF Rare-Few HPF (None Seen); Yeast-Budding Rare HPF (None Seen); Yeast-Hyphae 1+ HPF (None Seen)
[2019-12-16 15:37] VITALS: TEMP 100.4
[2019-12-16] MEDS: Lorazepam 2 MG/ML VIAL SLOW IVP PRN (16:19)
== END 2019-12-16 18:30 | DRG 3 ==
LOC: ERS 21:42 → CCU 22:44 → IMCU/EMU 12-15 16:39
PROVIDERS: ADMIT Family Medicine; ATTEND Family Medicine
PROC: 3E03317 Introduction of Other Thrombolytic into Peripheral Vein, Percutaneous Approach (ICD-10-PCS; 2019-11-30)
PROC: 00U20KZ Supplement Dura Mater with Nonautologous Tissue Substitute, Open Approach (ICD-10-PCS; principal; 2019-12-02)
PROC: 00N00ZZ Release Brain, Open Approach (ICD-10-PCS; 2019-12-02)
PROC: 0BH18EZ Insertion of Endotracheal Airway into Trachea, Via Natural or Artificial Opening Endoscopic (ICD-10-PCS; 2019-12-02)
PROC: 5A1955Z Respiratory Ventilation, Greater than 96 Consecutive Hours (ICD-10-PCS; 2019-12-02)
PROC: 0B110F4 Bypass Trachea to Cutaneous with Tracheostomy Device, Open Approach (ICD-10-PCS; 2019-12-12)
PROC: 0DH63UZ Insertion of Feeding Device into Stomach, Percutaneous Approach (ICD-10-PCS; 2019-12-12)
PROC: BD12ZZZ Fluoroscopy of Stomach (ICD-10-PCS; 2019-12-12)
DX: I63.512 Cerebral infarction due to unspecified occlusion or stenosis of left middle cerebral artery (principal); R40.2222 Coma scale, best verbal response, incomprehensible words, at arrival to emergency department; E11.00 Type 2 diabetes mellitus with hyperosmolarity without nonketotic hyperglycemic-hyperosmolar coma (NKHHC); G93.6 Cerebral edema; J96.01 Acute respiratory failure with hypoxia; J69.0 Pneumonitis due to inhalation of food and vomit; G81.91 Hemiplegia, unspecified affecting right dominant side; D68.8 Other specified coagulation defects; E46 Unspecified protein-calorie malnutrition; Z99.11 Dependence on respirator [ventilator] status; Z51.5 Encounter for palliative care; R40.2352 Coma scale, best motor response, localizes pain, at arrival to emergency department; R40.2142 Coma scale, eyes open, spontaneous, at arrival to emergency department; R29.716 NIHSS score 16; R29.810 Facial weakness; R47.01 Aphasia; R47.1 Dysarthria and anarthria; E11.65 Type 2 diabetes mellitus with hyperglycemia; I10 Essential (primary) hypertension; F31.9 Bipolar disorder, unspecified; F20.9 Schizophrenia, unspecified; R50.82 Postprocedural fever; B37.3 Candidiasis of vulva and vagina; R22.1 Localized swelling, mass and lump, neck; R21 Rash and other nonspecific skin eruption; D47.3 Essential (hemorrhagic) thrombocythemia; Z91.018 Allergy to other foods; Z91.040 Latex allergy status; Z79.899 Other long term (current) drug therapy; Z79.4 Long term (current) use of insulin; Z68.26 Body mass index [BMI] 26.0-26.9, adult
CPT/HCPCS: 12011; 36415; 36416; 70450; 70486; 70491; 70496; 70498; 71045; 72125; 80048; 80053; 80061; 80306; 81001; 81015; 81025; 81240; 81241; 82550; 82607; 82746; 82805; 83036; 83090; 83540; 83550; 83735; 83930; 84145; 84443; 84703; 85025; 85240; 85245; 85246; 85300; 85303; 85305; 85307; 85379; 85598; 85610; 85730; 86147; 86850; 86900; 86901; 87040; 87077; 87086; 87186; 90715; 93005; 93010; 93306; 94002; 94003; 94760; 95816; 95819; 96365; 96376; 99292; J0295; J0360; J0692; J0696; J1100; J1200; J1650; J1815; J2060; J2150; J2250; J2270; J2370; J2405; J2543; J2765; J2997; J3010; J3370; J3480; J3490; J7050; J7120; J7799; Q0163; Q9967; S0020; S0028